=== PATIENT | male | born 1960 | race Caucasian/White ===

== ENCOUNTER → 2017-10-11 | Outpatient (CLI) | payer OTHER ==
[2017-10-11 10:23] LABS: BASOPHILS ABSOLUTE AUTO 0.05 K/mm3 (0.00-0.23); BASOPHILS PERCENT AUTO 1 % (0-2); EOSINOPHILS ABSOLUTE AUTO 0.15 K/mm3 (0.00-0.68); EOSINOPHILS PERCENT AUTO 2 % (0-6); Hematocrit 47.2 % (37.0-53.0); Hemoglobin 16.1 g/dL (13.5-17.5); IMMATURE GRAN ABSOLUTE AUTO 0.03 K/mm3 (0.00-0.10); IMMATURE GRAN PERCENT AUTO 0 % (0-1); LYMPHOCYTES ABSOLUTE AUTO 1.41 K/mm3 (0.84-5.20); LYMPHOCYTES PERCENT AUTO 18 % (21-46); MONOCYTES ABSOLUTE AUTO 0.64 K/mm3 (0.16-1.47); MONOCYTES PERCENT AUTO 8 % (4-13); Mean Corpuscular HGB 29.5 pg (26.0-34.0); Mean Corpuscular HGB Conc 34.1 g/dL (31.5-36.5); Mean Corpuscular Volume 87 fL (80-100); Mean Platelet Volume 10.6 fL (9.1-12.4); NEUTROPHILS PERCENT AUTO 70 % (41-73); Platelet Count 193 K/mm3 (150-400); RDW Coefficient Variation 14.5 % (11.7-14.2); RDW Standard Deviation 44.6 fL (35.1-46.3); Red Blood Cell Count 5.45 M/mm3 (4.30-5.90); White Blood Cell Count 7.68 K/mm3 (4.00-11.30)
[2017-10-11 10:40] LABS: Alanine Aminotransfer (ALT/SGP 31 U/L (12-78); Albumin/Globulin Ratio 1.2 (0.8-1.8); Alk Phos 70 U/L (40-126); Anion Gap 8 mmol/L (6-16); Aspartate Aminotrans (AST/SGOT 18 U/L (12-37); Bilirubin, Total 0.5 mg/dL (0.1-1.0); Blood Urea Nitrogen 23 mg/dL (8-24); Bun/Creatinine Ratio 15.3 (12.0-20.0); CO2, Blood 30 mmol/L (21-32); Calcium, Blood 9.1 mg/dL (8.5-10.1); Chloride, Blood 106 mmol/L (98-108); Globulin, Blood 3.4 g/dL (2.2-4.0); Glomerular Filtration Rate 48 (60-); Glucose, Blood 88 mg/dL (70-99); Potassium, Blood 4.3 mmol/L (3.5-5.5); Sodium, Blood 144 mmol/L (136-145); Total Protein, Blood 7.4 g/dL (6.4-8.2)
[2017-10-11 10:42] LABS: Troponin I <0.017 ng/mL (0.000-0.040)
== END | disposition home or self-care (01) ==
LOC: LAB SHORT 10:19 → LAB EV 10:19
PROVIDERS: Physician Assistant
DX: I10 Essential (primary) hypertension (principal)
CPT/HCPCS: 80053; 83690; 83880; 84484; 85025

== ENCOUNTER → 2021-10-23 | Outpatient (CLI) | payer OTHER ==
[2021-10-23 16:14] LABS: BASOPHILS ABSOLUTE AUTO 0.05 K/mm3 (0.00-0.23); BASOPHILS PERCENT AUTO 1 % (0-2); EOSINOPHILS ABSOLUTE AUTO 0.06 K/mm3 (0.00-0.68); EOSINOPHILS PERCENT AUTO 1 % (0-6); IMMATURE GRAN ABSOLUTE AUTO 0.05 K/mm3 (0.00-0.10); IMMATURE GRAN PERCENT AUTO 1 % (0-1); LYMPHOCYTES ABSOLUTE AUTO 1.15 K/mm3 (0.84-5.20); LYMPHOCYTES PERCENT AUTO 12 % (21-46); MONOCYTES ABSOLUTE AUTO 0.82 K/mm3 (0.16-1.47); MONOCYTES PERCENT AUTO 9 % (4-13); Mean Corpuscular HGB 29.6 pg (26.0-34.0); Mean Corpuscular Volume 87 fL (80-100); NEUTROPHILS ABSOLUTE AUTO 7.38 K/mm3 (1.96-9.15); NEUTROPHILS PERCENT AUTO 78 % (41-73); Platelet Count 204 K/mm3 (150-400); RDW Coefficient Variation 15.3 % (11.7-14.2); RDW Standard Deviation 47.8 fL (35.1-46.3); Red Blood Cell Count 5.74 M/mm3 (4.30-5.90); White Blood Cell Count 9.51 K/mm3 (4.00-11.30)
[2021-10-23 16:37] LABS: Albumin, Blood 3.5 g/dL (3.4-5.0); Albumin/Globulin Ratio 1.1 (0.8-1.8); Bilirubin, Total 0.7 mg/dL (0.1-1.0); Bun/Creatinine Ratio 10.8 (12.0-20.0); Calcium, Blood 8.6 mg/dL (8.5-10.1); Creatinine, Blood 1.86 mg/dL (0.60-1.20); Globulin, Blood 3.1 g/dL (2.2-4.0); Potassium, Blood 4.1 mmol/L (3.5-5.5); Thyroid Stimulating Hormone 1.074 uIU/mL (0.360-4.800); Total Protein, Blood 6.6 g/dL (6.4-8.2)
== END | disposition home or self-care (01) ==
LOC: LAB SHORT 16:09 → LAB 16:09
PROVIDERS: Physician Assistant
DX: I48.0 Paroxysmal atrial fibrillation (principal); R53.83 Other fatigue
CPT/HCPCS: 80053; 83880; 84443; 84484; 85025

== ENCOUNTER → 2023-03-01 | Outpatient (CLI) | payer OTHER ==
[~2023-03-01] MED LIST: ISOSORBIDE MONO30 MG PO; Lasix40 MG PO; Tenormin50 MG PO; VITAMIN D31000 UNI1 PO; XARELTO15 MG PO
[2023-03-01 10:17] LABS: BASOPHILS ABSOLUTE AUTO 0.04 K/mm3 (0.00-0.23); BASOPHILS PERCENT AUTO 1 % (0-2); EOSINOPHILS ABSOLUTE AUTO 0.11 K/mm3 (0.00-0.68); EOSINOPHILS PERCENT AUTO 2 % (0-6); Hematocrit 51.5 % (37.0-53.0); Hemoglobin 16.8 g/dL (13.5-17.5); IMMATURE GRAN ABSOLUTE AUTO 0.03 K/mm3 (0.00-0.10); IMMATURE GRAN PERCENT AUTO 0 % (0-1); LYMPHOCYTES ABSOLUTE AUTO 1.45 K/mm3 (0.84-5.20); LYMPHOCYTES PERCENT AUTO 20 % (21-46); MONOCYTES PERCENT AUTO 10 % (4-13); Mean Corpuscular HGB 28.2 pg (26.0-34.0); Mean Corpuscular HGB Conc 32.6 g/dL (31.5-36.5); Mean Corpuscular Volume 86 fL (80-100); Mean Platelet Volume 10.6 fL (9.1-12.4); NEUTROPHILS ABSOLUTE AUTO 4.92 K/mm3 (1.96-9.15); NEUTROPHILS PERCENT AUTO 68 % (41-73); Platelet Count 233 K/mm3 (150-400); RDW Coefficient Variation 16.1 % (11.7-14.2); Red Blood Cell Count 5.96 M/mm3 (4.30-5.90); White Blood Cell Count 7.25 K/mm3 (4.00-11.30)
[2023-03-01 11:15] LABS: Alanine Aminotransfer (ALT/SGP 27 U/L (12-78); Albumin, Blood 3.4 g/dL (3.4-5.0); Albumin/Globulin Ratio 0.9 (0.8-1.8); Alk Phos 84 U/L (50-136); Anion Gap 6 mmol/L (6-16); Aspartate Aminotrans (AST/SGOT 18 U/L (12-37); Bilirubin, Total 0.5 mg/dL (0.1-1.0); Blood Urea Nitrogen 20 mg/dL (8-24); Bun/Creatinine Ratio 9.2 (12.0-20.0); CHOL/HDL RATIO 4.1; CO2, Blood 28 mmol/L (21-32); Calcium, Blood 8.9 mg/dL (8.5-10.1); Chloride, Blood 107 mmol/L (98-108); Cholesterol 144 mg/dL (50-200); Creatinine, Blood 2.17 mg/dL (0.60-1.20); Globulin, Blood 3.6 g/dL (2.2-4.0); Glomerular Filtration Rate 33 (60-); Glucose, Blood 84 mg/dL (70-99); HDL Cholesterol 35 mg/dL (>39); LDL/HDL RATIO 1.8; Low Density Lipoprotein Chol 65 mg/dL (0-110); Potassium, Blood 3.6 mmol/L (3.5-5.5); Sodium, Blood 141 mmol/L (136-145); Triglycerides 222 mg/dL (30-160); Very Low Density Lipoprot Chol 44 mg/dL (6-32)
== END | disposition home or self-care (01) ==
LOC: LAB SHORT 08:15 → LAB 08:15
PROVIDERS: Nurse Practitioner Family
DX: Z00.00 Encounter for general adult medical examination without abnormal findings (principal)
CPT/HCPCS: 36415; 80053; 80061; 82306; 83036; 84443; 85025

== ENCOUNTER → 2024-01-26 | Outpatient (CLI) | payer OTHER ==
[2024-01-26 19:05] LABS: BASOPHILS PERCENT AUTO 1 % (0-2); EOSINOPHILS ABSOLUTE AUTO 0.09 K/mm3 (0.00-0.68); EOSINOPHILS PERCENT AUTO 1 % (0-6); Hemoglobin 16.2 g/dL (13.5-17.5); IMMATURE GRAN ABSOLUTE AUTO 0.05 K/mm3 (0.00-0.10); IMMATURE GRAN PERCENT AUTO 1 % (0-1); LYMPHOCYTES ABSOLUTE AUTO 1.36 K/mm3 (0.84-5.20); LYMPHOCYTES PERCENT AUTO 20 % (21-46); MONOCYTES ABSOLUTE AUTO 0.81 K/mm3 (0.16-1.47); MONOCYTES PERCENT AUTO 12 % (4-13); Mean Corpuscular HGB 32.8 pg (26.0-34.0); Mean Corpuscular HGB Conc 33.1 g/dL (31.5-36.5); Mean Corpuscular Volume 99 fL (80-100); Mean Platelet Volume 10.9 fL (9.1-12.4); NEUTROPHILS ABSOLUTE AUTO 4.57 K/mm3 (1.96-9.15); NEUTROPHILS PERCENT AUTO 66 % (41-73); Platelet Count 228 K/mm3 (150-400); RDW Coefficient Variation 16.3 % (11.7-14.2); RDW Standard Deviation 59.7 fL (35.1-46.3); Red Blood Cell Count 4.94 M/mm3 (4.30-5.90); White Blood Cell Count 6.98 K/mm3 (4.00-11.30)
[2024-01-26 20:34] LABS: Alanine Aminotransfer (ALT/SGP 97 U/L (12-78); Albumin, Blood 3.8 g/dL (3.4-5.0); Alk Phos 85 U/L (50-136); Anion Gap 11 mmol/L (3-11); Aspartate Aminotrans (AST/SGOT 86 U/L (12-37); Bilirubin, Direct 0.2 mg/dL (0.0-0.3); Bilirubin, Indirect 0.5 mg/dL (0.1-0.7); Bilirubin, Total 0.7 mg/dL (0.1-1.0); Blood Urea Nitrogen 22 mg/dL (8-24); Bun/Creatinine Ratio 11.1 (12.0-20.0); CO2, Blood 28 mmol/L (21-32); Chloride, Blood 107 mmol/L (98-108); Cholesterol 203 mg/dL (50-200); Creatinine, Blood 1.98 mg/dL (0.60-1.20); Free Thyroxine 0.82 ng/dL (0.70-1.60); Glomerular Filtration Rate 37 (60-); Glucose, Blood 115 mg/dL (70-99); HDL Cholesterol 41 mg/dL (>39); LDL/HDL RATIO 2.7; Low Density Lipoprotein Chol 111 mg/dL (0-110); Potassium, Blood 4.3 mmol/L (3.5-5.5); Sodium, Blood 142 mmol/L (136-145); Total Protein, Blood 7.8 g/dL (6.4-8.2); Triglycerides 254 mg/dL (30-160); Very Low Density Lipoprot Chol 50 mg/dL (6-32)
== END ==
LOC: LAB 18:19 → LAB SHORT 18:19
PROVIDERS: Nurse Practitioner Family
DX: I10 Essential (primary) hypertension (principal); R16.0 Hepatomegaly, not elsewhere classified
CPT/HCPCS: 80053; 80061; 82248; 83880; 84439; 84443; 85025

== ENCOUNTER → 2024-11-06 | Outpatient (CLI) | payer OTHER ==
[~2024-11-06] MED LIST changes: +METFORMIN HCL500 M2 PO; +METOPROLOL SUCC25 MG PO; +XARELTO15 M1
[2024-11-06 19:42] LABS: BASOPHILS ABSOLUTE AUTO 0.06 K/mm3 (0.00-0.23); BASOPHILS PERCENT AUTO 1 % (0-2); EOSINOPHILS ABSOLUTE AUTO 0.06 K/mm3 (0.00-0.68); EOSINOPHILS PERCENT AUTO 1 % (0-6); Hematocrit 45.7 % (37.0-53.0); Hemoglobin 15.5 g/dL (13.5-17.5); IMMATURE GRAN ABSOLUTE AUTO 0.04 K/mm3 (0.00-0.10); IMMATURE GRAN PERCENT AUTO 1 % (0-1); LYMPHOCYTES ABSOLUTE AUTO 1.38 K/mm3 (0.84-5.20); LYMPHOCYTES PERCENT AUTO 19 % (21-46); MONOCYTES ABSOLUTE AUTO 0.77 K/mm3 (0.16-1.47); MONOCYTES PERCENT AUTO 10 % (4-13); Mean Corpuscular HGB Conc 33.9 g/dL (31.5-36.5); Mean Corpuscular Volume 100 fL (80-100); Mean Platelet Volume 10.3 fL (9.1-12.4); NEUTROPHILS ABSOLUTE AUTO 5.14 K/mm3 (1.96-9.15); NEUTROPHILS PERCENT AUTO 69 % (41-73); Platelet Count 272 K/mm3 (150-400); RDW Standard Deviation 69.7 fL (35.1-46.3); Red Blood Cell Count 4.56 M/mm3 (4.30-5.90); White Blood Cell Count 7.45 K/mm3 (4.00-11.30)
[2024-11-06 20:57] LABS: Albumin, Blood 3.3 g/dL (3.4-5.0); Albumin/Globulin Ratio 0.9 (0.8-1.8); Bilirubin, Total 1.8 mg/dL (0.1-1.0); Bun/Creatinine Ratio 7.4 (12.0-20.0); Calcium, Blood 8.4 mg/dL (8.5-10.1); Creatinine, Blood 1.89 mg/dL (0.60-1.20); Globulin, Blood 3.7 g/dL (2.2-4.0); Potassium, Blood 3.1 mmol/L (3.5-5.5)
== END | disposition home or self-care (01) ==
LOC: LAB 19:04 → LAB SHORT 19:04
PROVIDERS: Nurse Practitioner Family
DX: I10 Essential (primary) hypertension (principal)
CPT/HCPCS: 80053; 85025

== ENCOUNTER 2024-11-12 09:52 | Inpatient (IN) | payer OTHER ==
[~2024-11-12] VITALS: Ht 190.5 cm; Wt 125.1 kg
[2024-11-12] VITALS (10 sets, daily range): BP systolic 90–145; BP diastolic 67–108
[~2024-11-12 09:52] MED LIST changes: -METFORMIN HCL500 M2 PO; -METOPROLOL SUCC25 MG PO; -XARELTO15 M1
[2024-11-12 10:49] LABS: Source, Urine Voided
[2024-11-12] MEDS ORDERED: Metoprolol Tartrate 1 MG/ML 5 ML VIAL IV PRN ×2 (10:55→20:00)
[2024-11-12] MEDS ORDERED: NS 1,000 ML IV SCH ×3 (10:55→15:00)
[2024-11-12 10:56] LABS: BASOPHILS ABSOLUTE AUTO 0.05 K/mm3 (0.00-0.23); BASOPHILS PERCENT AUTO 1 % (0-2); EOSINOPHILS ABSOLUTE AUTO 0.04 K/mm3 (0.00-0.68); EOSINOPHILS PERCENT AUTO 1 % (0-6); Hemoglobin 14.9 g/dL (13.5-17.5); IMMATURE GRAN ABSOLUTE AUTO 0.03 K/mm3 (0.00-0.10); IMMATURE GRAN PERCENT AUTO 0 % (0-1); LYMPHOCYTES ABSOLUTE AUTO 1.03 K/mm3 (0.84-5.20); LYMPHOCYTES PERCENT AUTO 14 % (21-46); MONOCYTES PERCENT AUTO 11 % (4-13); Mean Corpuscular HGB 34.4 pg (26.0-34.0); Mean Corpuscular HGB Conc 35.5 g/dL (31.5-36.5); Mean Corpuscular Volume 97 fL (80-100); Mean Platelet Volume 9.8 fL (9.1-12.4); NEUTROPHILS ABSOLUTE AUTO 5.66 K/mm3 (1.96-9.15); NEUTROPHILS PERCENT AUTO 74 % (41-73); Platelet Count 180 K/mm3 (150-400); RDW Coefficient Variation 18.6 % (11.7-14.2); RDW Standard Deviation 66.8 fL (35.1-46.3); Red Blood Cell Count 4.33 M/mm3 (4.30-5.90); White Blood Cell Count 7.61 K/mm3 (4.00-11.30)
[2024-11-12] MEDS ORDERED: Diazepam 5 MG / ML 2ML SYR IV ONE (11:00)
[2024-11-12] MEDS ORDERED: Thiamine HCl 100 MG Tab PO ONE (11:00)
[2024-11-12 11:20] LABS: Appearance, Urine Clear (Clear); Bilirubin, Urine Neg (Neg); Blood, Urine 1+ (Neg); Color, Urine Amber (P-Yellow); Glucose Qualitative, Urine Neg (Neg); Ketones, Urine Neg (Neg); Leukocyte Esterase, Urine 1+ (Neg); Nitrite, Urine Neg (Neg); Protein, Urine 2+ (Neg); Urobilinogen, Urine 1+ (Normal)
[2024-11-12 11:26] LABS: Ethanol (Alcohol), Blood, Med 123 mg/dL; Salicylate <1.7 mg/dL (2.8-20.0)
[2024-11-12 11:39] LABS: Bacteria Few /hpf; Red Blood Cells, Urine 0-2 /hpf (0-2); Squamous Epithelial Cells Few /hpf (Few); Transitional Epithelial Cells Few /hpf (0-Rare)
[2024-11-12 11:46] LABS: Alanine Aminotransfer (ALT/SGP 36 U/L (12-78); Albumin, Blood 2.8 g/dL (3.4-5.0); Albumin/Globulin Ratio 0.8 (0.8-1.8); Alk Phos 110 U/L (50-136); Anion Gap 14 mmol/L (3-11); Aspartate Aminotrans (AST/SGOT 55 U/L (12-37); Bilirubin, Total 1.3 mg/dL (0.1-1.0); Blood Urea Nitrogen 11 mg/dL (8-24); CO2, Blood 27 mmol/L (21-32); Chloride, Blood 89 mmol/L (98-108); Creatinine, Blood 1.83 mg/dL (0.60-1.20); Globulin, Blood 3.6 g/dL (2.2-4.0); Glomerular Filtration Rate 40 (60-); Glucose, Blood 113 mg/dL (70-99); Potassium, Blood 2.2 mmol/L (3.5-5.5); Sodium, Blood 128 mmol/L (136-145); Total Protein, Blood 6.4 g/dL (6.4-8.2)
[2024-11-12 11:47] LABS: Acetaminophen, Random <2.0 ug/mL (10.0-30.0)
[2024-11-12] MEDS ORDERED: Potassium Chloride 20 MEQ TabCR PO ONE (11:55)
[2024-11-12] MEDS ORDERED: Potassium Acetate 20 MEQ in NS 100 ML IV SCH (11:55)
[2024-11-12] MEDS ORDERED: Potassium Chloride 40 MEQ in NS 250 ML IV ONE (12:05)
[2024-11-12] MEDS ORDERED: Digoxin 0.25 MG/ML 2ML Amp IV ONE (12:55)
[2024-11-12 13:14] LABS: Bun/Creatinine Ratio 6.7 (12.0-20.0); Calcium, Blood 7.5 mg/dL (8.5-10.1); Creatinine, Blood 1.79 mg/dL (0.60-1.20); Potassium, Blood 2.2 mmol/L (3.5-5.5)
[2024-11-12] MEDS ORDERED: NS 1,000 ML IV ONE (13:27)
[2024-11-12] MEDS ORDERED: LORazepam 2 MG/ML 1ML Injection IV PRN ×2 (14:20→23:15)
[2024-11-12] MEDS ORDERED: ChlordiazePOXIDE 25 MG Cap PO PRN ×2 (14:20→23:15)
[2024-11-12] MEDS ORDERED: Thiamine HCl 500 MG in NS 100 ML IV SCH (14:22)
[2024-11-12] MEDS ORDERED: Folic Acid 1 MG in NS 50 ML IV SCH (14:25)
--- NOTE | 2024-11-12 15:37 | NUR ---
NEW ADMIT. PATIENT ADMITTED TO PCU09 FROM THE ER. PATIENT ARRIVED TO WITH NS AND POTASSIUM IN ROUTE. PATIENT ADMITTED FOR ETOH WITHDRAWL. PATIENT IS TACHYCARDIC UPON ARRIVAL-TREATED WITH LOPRESSOR WITH MINIMAL IMPROVEMENT PER REPORT. PATIENT TRANSFERED FROM [facility] TO [facility] BED WITH SLIDER SHEET AND 4P ASSIST. PATIENTS PANTS SOILED UPON ARRIVAL-PATIENT REPORTED THAT HE HAD GONE WHEN TRYING TO PEE. THIS RN TO ASSUME PATIENT CARE.
[2024-11-12] MEDS ORDERED: Metoprolol Tartrate 1 MG/ML 5 ML VIAL IV ONE (16:00)
[2024-11-12] MEDS ORDERED: Metoprolol Tartrate 25 MG Tab PO SCH ×2 (16:00→18:14)
[2024-11-12] MEDS ORDERED: XARELTO15 M1 (16:25)
[2024-11-12] MEDS ORDERED: METFORMIN HCL500 M2 PO (16:26)
[2024-11-12] MEDS ORDERED: METOPROLOL SUCC25 MG PO (16:26)
--- NOTE | 2024-11-12 18:41 | NUR ---
SHIFT SUMMARY. PATIENT IS ALERT AND ORIENTED-ABLE TO ANSWER ALL ORIENTATION QUESTIONS APPROPRIATELY ALTHOUGH DOES EXPERIENCE CLOUDING AT TIMES. PATIENT ASSESSMENT COMPLETED, PATIENT TELEMETRY INITIATED UPON ARRIVAL TO ROOM-PATIENT IS IN AFIB WITH HEART RATE RANGING FROM 140'S-160'S-PATIENT RECEIVED A DOSE OF IV LOPRESSOR AND ORAL LOPRESSOR WITH NO IMPROVEMENT TO HEART RATE; CONTACTED AND NOTIFIED, ORDERED FOR AN ADDITIONAL DOSE OF METOPROLOL 25MG ORAL WITH INSTRUCTIONS TO NOTIFY IF NO IMPROVEMENT-SEE NURSE NOTIFY. PATIENT IS IN WITH ETOH WITHDRAWL AND CAN BE OF IRRITAL AFFECT. PATIENT WILL ASK FOR "MEDICATIONS TO STOP THE SWEATING". PATIENT EXPERIENCES TROUBLE GETTING PILLS DOWN, PATIENT IS ABLE TO SWALLOW SMALL PILLS OKAY WITH WATER. PATIENT IS ON A CLEAR LIQUID DIET. CIWAS ARE ORDERED. PATIENTS LAST CIWA SCORE FOR THIS RN WAS 9-25MG OF LIBRIUM GIVEN WITH IMPROVEMENT TO SYMPTOMS OF WITHDRAWL. PATIENT DRINKS 2 FIFTHS OF WHISKEY A DAY AND HE REPORTED LAST DRINK WAS TODAY 11/12/24 PRIOR TO CALLING EMS. PATIETNS IS IN AT BEDSIDE. PATIENT IS TIRED AND REPORTS NOT SLEEPING IN THE LAST 2 DAYS AND NOT EATING. PATIENT IS RESTING AT THIS TIME. BED IS LOCKED IN THE LOWEST POSITION WITH CALL LIGHT IN REACH, BED EXIT ALARM ENGAGED FOR PATIENT SAFETY. CARE IS ONGOING.
[2024-11-12 21:17] LABS: U Amphetamine Screen Not Detected; U Barbituate Screen Not Detected; U Benzodiazapine Screen Not Detected; U Buprenorphine Screen Not Detected; U Cannabinoids Screen Not Detected; U Cocaine Screen Not Detected; U Methadone Screen Not Detected; U Methamphetamine Screen Not Detected; U Opiates Screen Not Detected; U Oxycodone Screen Not Detected; U Phencyclidine Screen Not Detected
[2024-11-12] MEDS ORDERED: dexmedeTOMIDine 100 ML IV SCH (23:20)
--- NOTE | 2024-11-12 23:29 | NUR ---
SPOKE WITH DR. AGUDELO REGARDING INCREASE IN CIWA SCORES AND ATIVAN Q2 MAXED OUT. NOT FULL PROTOCOL ORDERED. ALSO DISCUSSED HR IN 150S ON AMIO GTT AND BP QUESTIONABLE TREND DOWN TO 100S SYTOLIC. PER JAMMIE GIVE METOPROLOL IV 5MG. THIS RN DID NOT FEEL COMFORTABLE WITH CURRENT BPS AND WORSENING CIWA SCORES, INCREASED SOA AND ONLY ATIVAN/LIBRIUM AVAILABLE. PER DR AGUDELO TRANSFER TO ICU FOR PRECEDEX GTT AND HIGHER LEVEL OF CARE
[2024-11-13] VITALS (60 sets, daily range): BP systolic 62–161; BP diastolic 35–143
[2024-11-13 05:39] LABS: Bun/Creatinine Ratio 6.1 (12.0-20.0); Calcium, Blood 7.9 mg/dL (8.5-10.1); Creatinine, Blood 2.47 mg/dL (0.60-1.20); Potassium, Blood 2.9 mmol/L (3.5-5.5)
[2024-11-13] MEDS ORDERED: Potassium Chl 20MEQ/Water100ML 100 ML IV SCH (06:00)
--- NOTE | 2024-11-13 06:46 | NUR ---
SHIFT SUMMARY: PT WAS TRANSFER FROM PCU. PT ARRIVED TO ICU ON BED, TRANSPORTED BY 2 RNS. TOA 2356. PT WAS ALERT TO SELF ONLY. PT WAS RE-DIRECTABLE AT FIRST, FOLLOWING COMMANDS, SLIGHTLY YELLING OUT BUT COOPERATIVE. PT CONTINUED TO STATE "HE HAD THINGS TO DO," AND TRIED GETTING OUT OF BED. RNS CONTINUED TO REASSURE HIM AND ATTEMPT TO RE-ORIENT HIM TO WHERE HE WAS. PT BECAME INCREASINGLY ANXIOUS AND STARTED PULLING AT LINES, ATTEMPTING TO GET OUT OF BED. PRECEDEX DRIP STARTED AND ATIVAN GIVEN PER EMAR ORDERS. PT PLACED IN RESTRAINTS PER ORDERS. PT AFEBRILE. HR 150S. IRREG. PT HAS HX OF AFIB. AMIODORONE DRIP RUNNING, STARTED IN PCU. SBP 130S. LUNGS COARSE IN UPPER LOBES, DIMINISHED AT BASES. PT SATS >90% OMN 2L NC. RESPIRATIONS 20S-30S. PT DENIES PAIN OVERALL OR CHEST PRESSURE/SOB. ABD DISTENDED AND FIRM. BOWEL TONES HYPERACTIVE. NO URINARY ISSUES REPORTED TO THIS RN. NO SKIN ISSUES NOTED. PT HAS RAC PERIPHERAL IV AND RFA POWERGLIDE. INFUSING PRECEDEX 0.2MCG/KR/HR AND NS AT 125ML/HR.
[2024-11-13] MEDS ORDERED: Albumin (Human) 25gm/100ml 100 ML IV SCH (07:55)
[2024-11-13] MEDS ORDERED: Enoxaparin 40 MG/0.4 ML SYR SC SCH (09:00)
[2024-11-13] MEDS ORDERED: Folic Acid 1 MG in NS 50 ML IV SCH (09:00)
--- NOTE | 2024-11-13 09:00 | NUR ---
ASSUMPTION OF CARE: ASSUMED CARE AT START OF SHIFT (0700). PT IS LAYING IN BED AND SEDATED VIA PRECEDEX DRIP. PT IS UNRESPONSIVE TO VERBAL AND PAINFUL STIMULI AT THIS TIME. PATIENT IS HERE FOR ALCOHOL WITHDRAWLS AND CIWA SCORE: 17. THEIR SYSTOLIC BP RANGING FROM 80 - 130'S AND MAP >65 HR: 90 - 100'S. THEIR ARE ON 2LPM VIA NC AND SPO2 >94%, LUNG SOUNDS ARE CLEAR AND SHALLOW BILATERALLY. RADIAL AND PEDAL PULSES ARE FAINT, HEARD WITH DOPPLER. POWERGLIDE IN R FOREARM AND PERIPHERAL IV IN R ARM. MOTTLING ON BILATERAL KNEES. LINES AND CORDS PLACED OUT OF REACH, AND CALL LIGHT PLACED WITHIN REACH.
--- NOTE | 2024-11-13 11:51 | NUR ---
PALLIATIVE CARE NOTE: RECEIVED MESSAGE ON PC PHONE FROM ASHA FAY RN FROM [facility], PT HAS EXPRESSED HE WANTS TO GO INTO REHAB FOR ALCOHOL ADDICTION. PLACED PC CONSULT TO ADDRESS.
[2024-11-13 12:44] LABS: International Normalized Ratio 1.29; Prothrombin Time Results 13.5 Sec (9.7-11.5)
[2024-11-13 13:50] LABS: Anti-Xa UFH, PHA Monitoring 0.18 IU/mL
[2024-11-13] MEDS ORDERED: Heparin Sodium,Porcine/0.5 NS 500 ML IV SCH (13:55)
--- NOTE | 2024-11-13 18:27 | NUR ---
SHIFT SUMMARY: PT IS AWAKE AND LAYING IN BED. THEY ARE SEDATED WITH PRECEDX AND RECIEIVING PRN ATIVAN TO HELP WITH WITHDRAWLS PER EMR ORDERS. WHEN SEDATION WEARS OFF THE PATIENT WILL SCREAM OUT AND TRY TO GET OUT OF BED, STATES THAT THEY WANT TO LEAVE AND WILL START TO GRAB AT THEIR LINES. PT LIKES LAYING ON THEIR SIDE, FAVORING THE LEFT SIDE. THEY O2 VIA NC @ 4LPM, SPO2 >94%, PT IS A MOUTH BREATHER AND WILL CONTINUE TO TRY AN TAKE OFF THE NC. HR: 110'S AND BP: 120 -140'S WITH MAP>65. POWERGLIDE IN THE R FOREARM, AND PERIPHERAL IV IN THE R ARM. PT RECIEVED A CHG BED BATH TODAY. STRAIGHT CATH'D WITH 90ML OUTPUT. LINES AND CORDS PLACED OUT OF REACH. CALL LIGHT PLACED WITHIN REACH.
--- NOTE | 2024-11-13 19:56 | NUR ---
PT UPDATE: CALL MADE TO LOREN MONIQUE REGARDING UNABLE TO OBTAIN OXYGEN READING. ORDERS PLACED FROM ABG. CRISTOBAL GILLIS NOTIFIED.
[2024-11-13 20:13] LABS: Bun/Creatinine Ratio 6.3 (12.0-20.0); Calcium, Blood 6.8 mg/dL (8.5-10.1); Creatinine, Blood 2.71 mg/dL (0.60-1.20); Potassium, Blood 3.1 mmol/L (3.5-5.5)
[2024-11-13 20:16] LABS: PCO2 Arterial 21.9 mmHg (35-45); PO2 Arterial 130 mmHg (80-100); pH Blood Arterial 7.39 (7.35-7.45)
[2024-11-13 21:16] LABS: Base Excess Venous -6.7 mmol/L; Bicarbonate Venous 17.8 mmol/L (24.0-30.0); PCO2 Venous 41.7 mmHg (38-42); pH Blood Venous 7.29 (7.34-7.37)
--- NOTE | 2024-11-13 21:25 | NUR ---
PT UPDATE: CALL PLACED TO LOREN MONIQUE REGARDING PLACING AMIO GTT ON SB WHILE GETTING MAPS UP AND LEVO STARTED. UPDATED HIM ON RECENT CHEMISTRY, NEW ORDERS RECIEVED.
[2024-11-13] MEDS ORDERED: Dose Adjust by Pharmacy XX STA (21:53)
[2024-11-13 22:04] LABS: Beta-hydroxybutyrate 1.3 mg/dL (0.2-2.8)
--- NOTE | 2024-11-13 22:30 | NUR ---
ASSUMPTION OF CARE/ASSESSMENT: ASSUMED CARE OF PT AT 1900; BEDSIDE SHIFT REPORT RECIEVED FROM ZAINA ZAMARRIPA. PT IN BED, RAAS -3 TO -4, AND PRECEDEX GTT @ 0.6 MCG AT SHIFT CHANGE. PRECEDEX GTT TITRATED OFF BY 2030 DUE TO UNRESPONSIVENESS AND ACUTE HYPOTENSION. LOREN CARE TECHNICIAN NOTIFIED OF PERSISTANT HYPOTENSION AND ORDERS FOR LEVOPHED RECIEVED. PT STARTED ON LEVO AND QUICKLY TITRATED UP TO 10 MCG TO MAINTAIN MAP 65<. PT CONTINUES TO BE UNRESPONSIVE. UNABLE TO OBTAIN SPO2 READING AT START OF SHIFT. LOREN CARE TECHNICIAN NOTIFIED AND ABG ORDERED; RESULTS SHOWED ADEQUATE OXYGENATION. PT MENTATION UNCHANGING, VBG TAKEN AN HOUR LATER AND SHOWED WORSENING CO2. LACTIC ACID TANKEN AT THIS TIME AND CAME BACK AT 7.0. DR KEATING BY TO ASSESS PT AND VERBAL ORDERS FOR HEAD/CHEST/ABD/PELVIS CT WO CONTRAST. PT TAKEN TO IMAGING AND STARTED TO BECOME RESPONSIVE TO STIMULI. PT HAS INCOHERENT SPEECH. AFTER IMAGING, RISHABH AT BEDSIDE ASSESSING; PT ABLE TO STATE NAME/, LOCATION, AND YEAR. PT ABLE TO MOVE ALL EXTREMITIES, FACE SYMMETRICAL, PERLLA BIALTERALLY. PT COOPERATIVE AT THIS TIME. PT REMAINS ON NC @ 4 LPM; LUNGS CLEAR WITH SOME RHONCHI ON R. SIDE AND LEFT SIDE IS DIMINISHED THROUGHOUT. PT NPO AT THIS TIME DUE TO ASPIRATION RISK. PT ABD SEVERLY DISTENDED FIRM AND WITHOUT TENDERNESS. PT OLIGURIC, HAVING A HARD TIME VOIDING AND REPORTS A BURNING SENSATION WHEN ATTEMPTING TO VOID; BLADDER SCAN COMPLETE AND SHOWING 41 MLS. PT MOTTLED FROM TOES TO ABD AND FINGER TIPS MOTTLED. PG TO RFA PATENT AND PIV TO RAC PATENT AND BOTH ARE INFUSING. WILL CONTINUE TO MONITOR.
[2024-11-13] MEDS ORDERED: NS 1,000 ML IV SCH (22:35)
[2024-11-13 22:38] LABS: Magnesium, Blood 1.5 mg/dL (1.6-2.4)
[2024-11-13] MEDS ORDERED: Magnesium Sulf 2 GM/Water 50ML 50 ML IV ONE (22:45)
[2024-11-13] MEDS ORDERED: Potassium Chloride 40 MEQ in NS 250 ML IV ONE (22:45)
[2024-11-13 22:57] LABS: Base Excess Venous -8.5 mmol/L; Bicarbonate Venous 16.8 mmol/L (24.0-30.0); PCO2 Venous 44.5 mmHg (38-42); pH Blood Venous 7.24 (7.34-7.37)
[2024-11-13] MEDS ORDERED: NS 1,000 ML IV ONE (23:00)
[2024-11-13 23:04] LABS: BASOPHILS ABSOLUTE AUTO 0.09 K/mm3 (0.00-0.23); BASOPHILS PERCENT AUTO 1 % (0-2); EOSINOPHILS ABSOLUTE AUTO 0.03 K/mm3 (0.00-0.68); EOSINOPHILS PERCENT AUTO 0 % (0-6); Hematocrit 45.7 % (37.0-53.0); IMMATURE GRAN ABSOLUTE AUTO 0.26 K/mm3 (0.00-0.10); IMMATURE GRAN PERCENT AUTO 2 % (0-1); LYMPHOCYTES ABSOLUTE AUTO 1.82 K/mm3 (0.84-5.20); LYMPHOCYTES PERCENT AUTO 12 % (21-46); MONOCYTES ABSOLUTE AUTO 1.31 K/mm3 (0.16-1.47); MONOCYTES PERCENT AUTO 8 % (4-13); Mean Corpuscular HGB 33.7 pg (26.0-34.0); Mean Corpuscular HGB Conc 32.8 g/dL (31.5-36.5); Mean Platelet Volume 9.6 fL (9.1-12.4); NEUTROPHILS ABSOLUTE AUTO 12.36 K/mm3 (1.96-9.15); NEUTROPHILS PERCENT AUTO 78 % (41-73); NRBC ABSOLUTE 0.05 K/mm3 (0.00-0.02); NRBC Auto 0.3 /100 WBC (0.0-0.2); Platelet Count 195 K/mm3 (150-400); RDW Coefficient Variation 19.9 % (11.7-14.2); RDW Standard Deviation 75.7 fL (35.1-46.3); Red Blood Cell Count 4.45 M/mm3 (4.30-5.90); White Blood Cell Count 15.87 K/mm3 (4.00-11.30)
[2024-11-13 23:05] LABS: Mean Corpuscular Volume 103 fL (80-100)
[2024-11-13] MEDS ORDERED: CALCIUM GLUC IN NACL, ISO-OSM 100 ML IV ONE (23:30)
[2024-11-14] VITALS (73 sets, daily range): BP systolic 66–166; BP diastolic 34–145
[2024-11-14] MEDS ORDERED: Insulin Human Lispro 100 Units/ML 3ML Syringe SC SCH
[2024-11-14 00:06] LABS: Albumin, Blood 3.1 g/dL (3.4-5.0); Albumin/Globulin Ratio 1.1 (0.8-1.8); Bilirubin, Direct 3.5 mg/dL (0.0-0.3); Bilirubin, Indirect 2.5 mg/dL (0.1-0.7); Free Thyroxine 1.15 ng/dL (0.70-1.60); Globulin, Blood 2.9 g/dL (2.2-4.0); Thyroid Stimulating Hormone 3.49 uIU/mL (0.360-4.800)
[2024-11-14] MEDS ORDERED: Cefepime HCl 1,000 MG in NS 100 ML IV SCH (01:00)
[2024-11-14] MEDS ORDERED: Vancomycin HCL 2,000 MG in NS 500 ML IV ONE (01:00)
--- NOTE | 2024-11-14 03:59 | NUR ---
PT UPDATE: MENTATION IS IMPROVING; PT REMAINS A&O X 4 AND COOPERATIVE WITH STAFF. LEVO ABLE TO BE TITRATED OFF, BP STABLE AT THIS TIME. PT REMAINS RESTLESS IN BED, CIWA 8; PT MEDICATED WITH 1 MG OF ATIVAN WITH GOOD EFFECT. ELECTROLYTES REPLACED. NS @ 150 MLS/HR. PT ABLE TO HELP REPOSITION SELF IN BED. BEDSIDE SWALLOW EVAL COMPLETED, PT ABLE TO TOLERATE SMALL SIPS OF WATER. WILL CONTINUE TO MONITOR.
[2024-11-14 04:21] LABS: Base Excess Venous -5.7 mmol/L; Bicarbonate Venous 18.5 mmol/L (24.0-30.0); PCO2 Venous 53.2 mmHg (38-42); pH Blood Venous 7.22 (7.34-7.37)
[2024-11-14 04:29] LABS: Hematocrit 41.6 % (37.0-53.0); Hemoglobin 13.7 g/dL (13.5-17.5); Mean Corpuscular HGB 33.9 pg (26.0-34.0); Mean Corpuscular HGB Conc 32.9 g/dL (31.5-36.5); Mean Corpuscular Volume 103 fL (80-100); NRBC ABSOLUTE 0.02 K/mm3 (0.00-0.02); NRBC Auto 0.1 /100 WBC (0.0-0.2); Platelet Count 140 K/mm3 (150-400); RDW Coefficient Variation 19.6 % (11.7-14.2); RDW Standard Deviation 74.4 fL (35.1-46.3); Red Blood Cell Count 4.04 M/mm3 (4.30-5.90); White Blood Cell Count 14.47 K/mm3 (4.00-11.30)
[2024-11-14 04:46] LABS: Albumin, Blood 2.8 g/dL (3.4-5.0); Albumin/Globulin Ratio 1.1 (0.8-1.8); Bilirubin, Total 5.1 mg/dL (0.1-1.0); Bun/Creatinine Ratio 6.8 (12.0-20.0); Calcium, Blood 7.6 mg/dL (8.5-10.1); Creatinine, Blood 3.4 mg/dL (0.60-1.20); Globulin, Blood 2.5 g/dL (2.2-4.0); Magnesium, Blood 1.8 mg/dL (1.6-2.4); Potassium, Blood 4.6 mmol/L (3.5-5.5); Total Protein, Blood 5.3 g/dL (6.4-8.2)
--- NOTE | 2024-11-14 06:01 | NUR ---
SHIFT SUMMARY: PT MENTATION IS STARTING TO DETERIOATE SINCE PREVIOUS NOTE. PT A&O X 1; PT STATES HE IS AT HOME, THAT THE MONTH IS APRIL AND THE YEAR IS 1987. PT CONTINUES TO FOLLOW DIRECTIOSN BUT IS GETTING INCREASINGLY AGGITATED WITH STAFF. PT YELLING OUT FREQUENTLY AND BEGAN THROWING URINAL AROUND THE ROOM. PT REMAINS ON NC @ 4LPM, CLEAR AND DIMINISHED, MORE SO ON THE LEFT SIDE. PT HAS UPPER AIRWAY WHEEZES NOTED. PT DENIES SOB AND CHEST PAIN. PT REMAINS AFIB ON MONITOR WITH RATE 130-150'S; DISCUSSED IN LENGTH WITH DR. KEATING REGARDIN RESTARTING AMIO BOLUS AND DRIP AND THE CONCLUSION WAS TO HOLD OFF FOR NOW DUE TO WORSENING LFT'S AND KIDNEY FUNCTION. BLADDER SCANNED THIS MORNING WITH 48 MLS. PT REPORTS PAIN IN ABD THIS MORNING. DR BETH AT BEDSIDE TO ASSESS PT; ORDERS RECIEVED. NS DECREASED TO 100 MLS/HR PER KIRIT. BED LOWERED, CALL LIGHT IN REACH, WILL REPORT OFF TO ONCOMING RN.
--- NOTE | 2024-11-14 06:22 | NUR ---
PT UPDATE: CRITICAL CBG OF 44. DR. KEATING NOTIFIED AND ORDERS FOR AN AMP OF D50 TO BE GIVEN NOW.
[2024-11-14] MEDS ORDERED: Dextrose 50% 50 ML Vial IV ONE (06:25)
[2024-11-14 07:52] LABS: Base Excess Venous -4.7 mmol/L; Bicarbonate Venous 19.6 mmol/L (24.0-30.0); PCO2 Venous 45.1 mmHg (38-42); pH Blood Venous 7.29 (7.34-7.37)
[2024-11-14] MEDS ORDERED: Albumin Human 50 ML IV SCH (08:30)
[2024-11-14] MEDS ORDERED: Octreotide Acetate 50 MCG in NS 50 ML IV SCH (09:00)
[2024-11-14] MEDS ORDERED: Metoprolol Tartrate 25 MG Tab PO SCH (09:00)
[2024-11-14] MEDS ORDERED: Midodrine 5 MG Tab PO SCH (09:00)
[2024-11-14] MEDS ORDERED: Dose Adjust by Pharmacy XX STA (11:57)
[2024-11-14 12:36] LABS: Anion Gap 16 mmol/L (3-11); Blood Urea Nitrogen 24 mg/dL (8-24); CO2, Blood 20 mmol/L (21-32); Calcium, Blood 7.3 mg/dL (8.5-10.1); Chloride, Blood 103 mmol/L (98-108); Creatinine, Blood 3.43 mg/dL (0.60-1.20); Glomerular Filtration Rate 19 (60-); Glucose, Blood 86 mg/dL (70-99); Potassium, Blood 3.7 mmol/L (3.5-5.5); Sodium, Blood 135 mmol/L (136-145); Vancomycin, Random 21.2 ug/mL
[2024-11-14 13:19] LABS: Base Excess Venous -6.5 mmol/L; Bicarbonate Venous 18.1 mmol/L (24.0-30.0); PCO2 Venous 47.6 mmHg (38-42); pH Blood Venous 7.25 (7.34-7.37)
[2024-11-14] MEDS ORDERED: Sodium Bicarb 8.4% Inj 150 MEQ in Dextrose 5% 1,000 ML IV SCH (14:05)
[2024-11-14] MEDS ORDERED: Vancomycin HCL 1,000 MG in NS 250 ML IV ONE (16:00)
--- NOTE | 2024-11-14 16:31 | NUR ---
SHIFT SUMMARY PT SEDATED WITH PRECEDEX AT THIS TIME. PT WITH EPISODES OF AGITATION AND RESTLESSNESS WITH LABILE MENTATION. PT RESTING QUIETLY MOST OF THIS AFTERNOON. WHEN AWAKE, PT IS CONFUSED AND DOES NOT RESPOND TO REDIRECTION. PT ABLE TO TAKE SMALL SIPS OF WATER WHEN MORE ALERT, OTHERWISE NPO DUE TO MENTATION. VITAL SIGNS HAVE REMAINED STABLE. PT ON 4L O2 NC WHILE RESTING. PG X2 IN PLACE WITH PRECEDEX, HEPARIN, BICARB, AND NS INFUSING. PT WITH SMALL INCONTINENT VOID THIS SHIFT. PT ABLE TO SHIFT SELF IN BED INDEPENDENTLY. PT SPOUSE AT BEDSIDE MOST OF THIS SHIFT. PT TRANSFERED TO ICU 5 THIS AFTERNOON. ALL PT BELONGINGS AND MEDS MOVED WITH PT. WILL CONTINUE TO MONITOR AND REPORT OFF TO ONCOMING RN.
[2024-11-14] MEDS ORDERED: Clarify Drug Order XX ONE (19:20)
[2024-11-15] VITALS (66 sets, daily range): BP systolic 93–167; BP diastolic 59–149
[2024-11-15] MEDS ORDERED: Clarify Drug Order XX ONE (02:20)
[2024-11-15 04:13] LABS: Hematocrit 38.7 % (37.0-53.0); Hemoglobin 12.5 g/dL (13.5-17.5); Mean Platelet Volume 9.7 fL (9.1-12.4); Platelet Count 136 K/mm3 (150-400)
[2024-11-15 04:56] LABS: Anion Gap 13 mmol/L (3-11); Blood Urea Nitrogen 31 mg/dL (8-24); Bun/Creatinine Ratio 8.2 (12.0-20.0); CO2, Blood 23 mmol/L (21-32); Calcium, Blood 7.5 mg/dL (8.5-10.1); Chloride, Blood 103 mmol/L (98-108); Creatinine, Blood 3.79 mg/dL (0.60-1.20); Glomerular Filtration Rate 17 (60-); Glucose, Blood 103 mg/dL (70-99); Magnesium, Blood 1.7 mg/dL (1.6-2.4); Phosphorus, Blood 3.8 mg/dL (2.5-4.9); Potassium, Blood 3.5 mmol/L (3.5-5.5); Sodium, Blood 135 mmol/L (136-145); Vancomycin, Random 25.3 ug/mL
[2024-11-15 05:27] LABS: Base Excess Venous -2.9 mmol/L; Bicarbonate Venous 20.6 mmol/L (24.0-30.0); PCO2 Venous 50.7 mmHg (38-42)
[2024-11-15 05:28] LABS: pH Blood Venous 7.28 (7.34-7.37)
--- NOTE | 2024-11-15 06:32 | NUR ---
SHIFT SUMMARY ASSUMED CARE OF PT AT 1900, RASS -2/+2 ON PRECEDEX GTT WITH FLUCTUATING LEVELS OF AWAKE, WHEN AWAKE, PT YELLING OUT, PULLING ON TELE LEADS AND RESTLESS, DOES NOT FOLLOW COMMANDS, AFIB RHYTHM 80-110s, BP MAP>65, AFEBRILE, CIWA 13, ABDIRIZAK AND RIGHT FOREARM POWERGLIDE PATENT, PLACED PUREWICK BEGINNING OF SHIFT WITH BLADDER SCAN NOTED 87 ML IN BLADDER, REPEATED BLADDER SCAN AT 0500 WITH NO NOTED OUTPUT IN PUREWICK, [address] BETH WITH [facility] AND NOTIFIED OF PT NOT VOIDED THIS SHIFT AND OF BLADDER SCAN RESULTS WITH NEW ORDERS RECEIVED TO PLACE LEA CATH AND STAT VBG, 05 14 FR 10 ML BULB LEA CATH PLACED WITH 300 ML NAMAN URINE RETURNED , LEA PLACED WITH STERILE TECHNIQUE, PT TOLERATED WELL, [address] BETH WITH VBG RESULTS WITH NEW ORDERS RECEIVED FOR CHEM 8 AT NOON AND CALL RESULTS TO HIM AT 1300. [address] BETH AT BEDSIDE , NOTIFIED OF URINE OUTPUT, NEW ORDERS RECEIVED FOR AMMONIA LEVEL AND CALL TO ATTENDING MD IF NEEDED AND INCREASED IVF NS TO 75 ML/HR , HEPARIN GTT INFUSING PER EMAR, BICARB INFUSING AT 50 ML/HR
[2024-11-15] MEDS ORDERED: Dose Adjust by Pharmacy XX STA ×2 (08:44→21:30)
[2024-11-15 13:17] LABS: Bun/Creatinine Ratio 9.5 (12.0-20.0); Calcium, Blood 7.7 mg/dL (8.5-10.1); Creatinine, Blood 3.46 mg/dL (0.60-1.20); Potassium, Blood 3.5 mmol/L (3.5-5.5)
[2024-11-15] MEDS ORDERED: Albumin Human 50 ML IV ONE (13:30)
[2024-11-15] MEDS ORDERED: Bumetanide 0.25 MG/ML 10ML Vial IV ONE (13:30)
--- NOTE | 2024-11-15 18:26 | NUR ---
SHIFT SUMMARY PT CALM MOST OF SHIFT, OCCASIONAL CONFUSION AND OUTBURSTS, ABLE TO REORIENT TO SITUATION AND CALM PT. DOING WELL ON PRECEDEX FOR ETOH WITHDRAWAL. UO CONTINUED TO BE LOW, ORDERS RECEIVED FOR BUMEX AND ADDITIONAL ALBUMIN DOSES WITH GOOD RESULT. CARDIOLOGY CONSULT CALLED PER DR JOSEPH DUE TO EF ON ECHO AT 15%. DR TRUJILLO UPDATED ON PT STATUS. SHIFT OUTPUT 1550 ML. ABLE TO LOWER O2 NC TO 6L AND O2 SAT STAYING MID TO HIGH 90S. AT BEDSIDE FOR MOST OF SHIFT WITHOUT ISSUES. VSS AT THIS TIME. RESTING COMFORTABLY ON 0.5 MCG PRECEDEX.
--- NOTE | 2024-11-15 20:00 | NUR ---
ASSUMPTION OF CARE CARE OF PT ASSUMED FOLLOWING BEDSIDE REPORT RECEIVED FROM DAY RN. PT LYING IN BED WITH IN ROOM. PT IS ASKING TO LEAVE AND ASKING WHEN HE WILL BE ALLOWED TO LEAVE. PT IS ALERT AND ORIENTED THOUGH DROWSY. ANSWERS ALL QUESTIONS CORRECTLY. REPORTEDLY CONFUSED INTERMITTENTLY. PT DENIES CHEST PAIN/PRESSURE, SOB, AB PAIN, N/V. A FIB RHYTHM 90-110. PO METOPROLOL TO BE HELD FOR NOW, LOPRESSOR PUSHES ON MAR IF NEEDED (HR OVER 110). BP STABLE. RESPIRATIONS REGULAR AND W/O EXTRA EFFORT. 100% SAT ON 6L NC- WILL DECREASE TO 4L. BOWEL SOUNDS ACTIVE. WILL CONSIDER TESTING PT SWALLOW DURING SHIFT IF APPROPRIATE. PRECEDEX AT 0.5. HEPARIN AT 15. NS AT 50. PT HAS CALL LIGHT HANDY. LEAVES DURING ASSESSMENT.
[2024-11-16] VITALS (27 sets, daily range): BP systolic 95–138; BP diastolic 53–108
[2024-11-16 04:23] LABS: Hematocrit 35.1 % (37.0-53.0); Hemoglobin 11.5 g/dL (13.5-17.5)
[2024-11-16 04:42] LABS: Albumin, Blood 2.7 g/dL (3.4-5.0); Anion Gap 9 mmol/L (3-11); Blood Urea Nitrogen 31 mg/dL (8-24); Bun/Creatinine Ratio 10.1 (12.0-20.0); CO2, Blood 25 mmol/L (21-32); Calcium, Blood 7.4 mg/dL (8.5-10.1); Chloride, Blood 106 mmol/L (98-108); Creatinine, Blood 3.06 mg/dL (0.60-1.20); Glomerular Filtration Rate 22 (60-); Glucose, Blood 85 mg/dL (70-99); Magnesium, Blood 1.4 mg/dL (1.6-2.4); Phosphorus, Blood 2.8 mg/dL (2.5-4.9); Potassium, Blood 3.2 mmol/L (3.5-5.5); Sodium, Blood 137 mmol/L (136-145); Vancomycin, Random 17.8 ug/mL
[2024-11-16] MEDS ORDERED: Dose Adjust by Pharmacy XX STA ×3 (05:12→19:32)
[2024-11-16] MEDS ORDERED: Potassium Chl 20MEQ/Water100ML 100 ML IV ONE (05:50)
[2024-11-16] MEDS ORDERED: WATER IV SCH (05:50)
[2024-11-16] MEDS ORDERED: MAGNESIUM SULF IV SCH (05:50)
[2024-11-16] MEDS ORDERED: Vancomycin HCL 1,250 MG in NS 250 ML IV ONE (06:00)
--- NOTE | 2024-11-16 06:43 | NUR ---
SHIFT SUMMARY PT LYING IN BED, ALERT AND ORIENTED BUT CONFUSED WHEN AWAKES FROM SLEEP. PRECEDEX INFUSING AT 0.5. HEPARIN INFUSING AT 16. PT IN A FIB 90-110/MIN, PO METOPROLOL NO ADMINISTERED DUE TO ASPIRATION RISK AND NO PRN IV LOPRESSOR GIVEN DUE TO RATE NOT EXCEEDING 110. BP STABLE ALL SHIFT. PT WEANED TO 2L NC WITH 99% SATURATION. A TRIAL OF ZERO OXYGEN BEGUN AT 0630. NO CHEST PAIN/PRESSURE, SOB, AB PAIN, N/V DURING SHIFT. AB DISTENDED WITH HYPOACTIVE BOWEL SOUNDS. LEA IN PLACE DRAINED 1800ML YELLOW URINE. PT HAS CALL LIGHT HANDY. PT WANTS TO GO HOME BUT LISTENS TO ADVICE TO STAY. BEDSIDE REPORT GIVEN TO ONCOMING DAY RN.
--- NOTE | 2024-11-16 07:57 | NUR ---
ASSUMED CARE OF PATIENT AT APPROXIMATELY 0700. BEDSIDE REPORT RECEIVED FROM MARILOU REA. PT ASLEEP DURING BEDSIDE REPORT BUT ROUSES BRIEFLY TO VOICES. CONTINUOUS CARDIAC MONITORING IN PLACE SHOWS AFIB, BP STABLE. ON RA c O2 SATURATIONS > 92%. LEA PATENT AND DRAINING TO GRAVITY. PRECEDEX INFUSING AT 0.5 MCG/KG/HR, HEPARIN INFUSING AT 16 U/KG/HR. SEE SHIFT ASSESSMENT FOR FULL DETAILS.
[2024-11-16] MEDS ORDERED: MAGNESIUM SULFATE IV ONE (08:00)
[2024-11-16] MEDS ORDERED: NS IV ONE (08:00)
[2024-11-16] MEDS ORDERED: Albumin Human 50 ML IV SCH (09:00)
[2024-11-16] MEDS ORDERED: Bumetanide 0.25 MG/ML 10ML Vial IV SCH (09:00)
[2024-11-16] MEDS ORDERED: FentaNYL Citrate 50 MCG/ML 2 ML Injection IV PRN (12:30)
--- NOTE | 2024-11-16 14:19 | NUR ---
CBG RECHECKED DUE TO BLOOD SUGARS TRENDING DOWN. RECHECK AT 1419 WAS 68. PT GIVEN 240 mL ORANGE JUICE. 30 MINUTE RECHECK POST ORANGE JUICE CONSUMPTION WAS 83. WILL CONTINUE TO MONITOR.
--- NOTE | 2024-11-16 17:27 | NUR ---
SHIFT SUMMARY PT REMAINED ALERT AND ORIENTED X 4 T/O ENTIRETY OF SHIFT. ABLE TO FOLLOW COMMANDS, MAKE PURPOSEFUL MOVEMENTS, AND MAKE NEEDS KNOWN. AFEBRILE. REPORTED ONE EPISODE OF L KNEE PAIN AT 12/18. MEDICATED PER EMAR c GOOD BENEFIT. CIWA SCORES 5-6. PRECEDEX REMAINS ON SB. CONTINUOUS CARDIAC MONITORING IN PLACE SHOWS AFIB c HR IN 90'S-120'S. ONE DOSE OF IV LOPRESSOR GIVEN, PO METOPROLOL FREQUENCY UPDATED PER HOSPITALIST. BP STABLE c MAPS > 65. ON RA c O2 SATURATIONS > 92%. NO BM THIS SHIFT. JESSICA SWALLOW EVAL FAILED, ST EVAL AND TX COMPLETED, SEE ORDERS. Q6 CBG'S, SEE NOTE REGARDING LOW CBG. LEA PATENT AND DRAINING TO GRAVITY. HEPARIN INFUSING AT 17 U/KG/HR. WILL CONTINUE TO MONITOR AND REPORT TO ONCOMING RN.
[2024-11-16] MEDS ORDERED: Metoprolol Tartrate 25 MG Tab PO SCH (18:00)
--- NOTE | 2024-11-16 20:06 | NUR ---
ASSUME CARE: BEDSIDE REPORT RECIEVED BY MELVIN RN. PT UP TO COMMODE W/2 PERSON ASSIST VIA WALKER, PT APPEARS WEAK W/STANDING AND AMBULATION. PT A/Ox4 AND ABLE TO MAKE NEEDS KNOWN. SBP 120s, MAP>65. MONITOR SHOWS AFIB, RATE 120s AT REST TO 160s W/EXCERTION. SPO2>95% ON RA. PT DENIES CP OR SOB. LEA PATENT DRAINING TO GRAVITY. PT IN ROOM. THIS RN AND TANK MAKER WOOD HAD DISCUSSION W/ PT ABOUT GOING HOME, STATES SHE IS SCARED TO DRIVE AND PT STATES SHE DOES NOT HAVE A LICENSE AND SHOULD NOT DRIVE. PT BECAME AGITATED AND STATES HE WILL LEAVE AMA DESPITE HIM BEING VERY WEAK AND NOT ABLE TO WALK. WILL BE ALLOWED TO STAY AT THIS TIME, BUT WAS TOLD IF THERE ARE ANY ISSUES SHE WILL HAVE TO LEAVE. WILL UPDATE NEEDED.
[2024-11-16] MEDS ORDERED: D5W-1/2NS 1,000 ML IV SCH (23:25)
[2024-11-17] VITALS (26 sets, daily range): BP systolic 95–143; BP diastolic 69–122
[2024-11-17] MEDS ORDERED: OxyCODONE 5 mg/Acetamin 325 mg TABLET PO PRN (00:35)
[2024-11-17 02:21] LABS: Hematocrit 37.3 % (37.0-53.0); Hemoglobin 12.5 g/dL (13.5-17.5)
[2024-11-17 02:40] LABS: Alanine Aminotransfer (ALT/SGP 106 U/L (12-78); Albumin, Blood 2.9 g/dL (3.4-5.0); Alk Phos 75 U/L (50-136); Anion Gap 10 mmol/L (3-11); Aspartate Aminotrans (AST/SGOT 191 U/L (12-37); Bilirubin, Total 2.9 mg/dL (0.1-1.0); Blood Urea Nitrogen 29 mg/dL (8-24); Bun/Creatinine Ratio 11.3 (12.0-20.0); CO2, Blood 27 mmol/L (21-32); Calcium, Blood 8.2 mg/dL (8.5-10.1); Chloride, Blood 103 mmol/L (98-108); Creatinine, Blood 2.56 mg/dL (0.60-1.20); Globulin, Blood 2.9 g/dL (2.2-4.0); Glomerular Filtration Rate 27 (60-); Glucose, Blood 109 mg/dL (70-99); Magnesium, Blood 1.4 mg/dL (1.6-2.4); Phosphorus, Blood 1.7 mg/dL (2.5-4.9); Sodium, Blood 137 mmol/L (136-145); Total Protein, Blood 5.8 g/dL (6.4-8.2)
[2024-11-17] MEDS ORDERED: Dose Adjust by Pharmacy XX STA ×4 (02:47→23:46)
[2024-11-17] MEDS ORDERED: Magnesium Sulf 2 GM/Water 50ML 50 ML IV ONE (02:50)
[2024-11-17] MEDS ORDERED: D5W-1/2NS 1,000 ML IV SCH (03:00)
[2024-11-17] MEDS ORDERED: Potassium Chloride 40 MEQ in NS 250 ML IV ONE ×2 (03:30→14:00)
[2024-11-17] MEDS ORDERED: Sodium Phosphate 30 MM in Dextrose 5% 500 ML IV ONE (03:30)
--- NOTE | 2024-11-17 06:03 | NUR ---
CALL TO MD CALL TO DR CURRY REGARDING TACHYCARDIA WITH HEART RATE 150-170 AFTER LOPRESSOR GIVEN. RECEIVED ORDER FOR AMIODARONE 150 MG IV BOLUS
--- NOTE | 2024-11-17 06:16 | NUR ---
SHIFT SUMMARY: PT A/Ox4 AND ABLE TO MAKE NEEDS KNOWN. SBP 130s, MAP>65. MONITOR SHOW AFIB RATE 120s-160s, MEDICATED PER EMAR. SPO2>95% ON RA. PT WAS NOT ABLE TO GET MUCH SLEEP COMPLAINING OF PAIN IN HIS LEFT KNEE DESPITE MEDICATIONS GIVEN. LEA PATENT DRAINING TO GRAVITY. AT BEDSIDE THROUGHOUT THE NIGHT. PT CBG LOW AT 0000, HOSPITALIST CALLED W/ NEW ORDERS GIVEN. WILL REPORT TO ONCOMING RN.
--- NOTE | 2024-11-17 07:58 | NUR ---
PER DR BETH REPEAT LABS MG, K, PHOS AT 1200 CALL WITH RESULTS BY 1300.
[2024-11-17] MEDS ORDERED: Metoprolol Tartrate 50 MG Tab PO SCH (09:00)
[2024-11-17 12:40] LABS: Magnesium, Blood 1.7 mg/dL (1.6-2.4); Potassium, Blood 2.9 mmol/L (3.5-5.5)
--- NOTE | 2024-11-17 17:56 | NUR ---
SHIFT SUMMARY NEURO: PATIENT ALERT AND ORIENTED X 3-4. INTERMITTENTLY CONFUSED. SOME VISUAL HALLUCINATIONS. AFEBRILE. MOVE HIS EXTREMITIES WELL BUT BLE WEAK. CIWA: 4-21. ATIVAN ADMIN PRN FOR AGITATION/WITHDRAWL SS MANAGEMENT- SEE MAR FOR DETAILES. CARDIAC: AFIB/AFIB RVR HR 120-140S TODAY. SBP 110S-140S. CARDIOLOGY BY TO SEE PT SEE NOTE EVAL. LUNGS: UPPER LOBES CLEAR, RML/RLL COARSE. NO COUGH. UANBLE TO COLLECT SPUTUM CULTURE. ON 2L WHILE SLEEPIGN DUE TO SHALLOW BREATHING GI: NO BM, ATTEMPTED TO STOOL X2. ABDOMEN IS MODERATLEY DISTENDED. +NAUSEA THROUGH OUT THE DAY. : LEA IN AND DRAINING TO GRAVITY. OVER 2L OUT TODAY SKIN: INTACT. NO WOUNDS OR OPEN AREAS. MOBILITY: FWW SMALL SHUFFLED STEPS TO RECLINER. VERY WEAK BLE. PT INSISTED ON GETTING UP TO THE RECLINER. POSITIONING DID HELP ANXIEY/BREATHING.
[2024-11-17] MEDS ORDERED: Potassium Chl 10MEQ/Water100ML 100 ML IV ONE (18:00)
--- NOTE | 2024-11-17 20:55 | NUR ---
ASSUME CARE: BEDSIDE REPORT RECIEVED FROM DAYSHIFT RN. PT A/Ox3-4, ANSWERS QUESTIONS CORRECTLY, BUT DOES HAVE SOME CONFUSION. PT MEDICATED W/ATIVAN BEFORE THIS RN START OF SHIFT. PT TRYING TO GET OUT OF BED STATING HE HAS THINGS TO DO, AND HOW IS HE SUPPOSED TO GET BETTER WITHOUT GETTING OUT OF BED. PT REDIRECTED THAT HE IS TOO WEAK AND CONFUSED AT THIS TIME TO GET OUT OF BED. PT ABLE TO REST MORE AND SLEEP ONCE WENT HOME. SBP 130s, MAP>65. MONITOR SHOWS AFIB RYTHM W/ RATE 120s-150s. PT DENIES CP OR PRESSURE. SPO2>95% ON RA. LEA PATENT DRAINING TO GRAVITY. WILL UPDATE NEEDED.
[2024-11-17] MEDS ORDERED: Potassium Chl 20MEQ/Water100ML 100 ML IV ONE (21:50)
[2024-11-18] VITALS (16 sets, daily range): BP systolic 95–140; BP diastolic 73–117
[2024-11-18 04:03] LABS: BASOPHILS ABSOLUTE AUTO 0.05 K/mm3 (0.00-0.23); BASOPHILS PERCENT AUTO 1 % (0-2); EOSINOPHILS ABSOLUTE AUTO 0.09 K/mm3 (0.00-0.68); EOSINOPHILS PERCENT AUTO 1 % (0-6); Hematocrit 37.6 % (37.0-53.0); Hemoglobin 12.3 g/dL (13.5-17.5); IMMATURE GRAN ABSOLUTE AUTO 0.07 K/mm3 (0.00-0.10); IMMATURE GRAN PERCENT AUTO 1 % (0-1); LYMPHOCYTES PERCENT AUTO 15 % (21-46); MONOCYTES ABSOLUTE AUTO 1.14 K/mm3 (0.16-1.47); MONOCYTES PERCENT AUTO 15 % (4-13); Mean Corpuscular HGB 33.3 pg (26.0-34.0); Mean Corpuscular HGB Conc 32.7 g/dL (31.5-36.5); Mean Corpuscular Volume 102 fL (80-100); Mean Platelet Volume 9.2 fL (9.1-12.4); NEUTROPHILS PERCENT AUTO 67 % (41-73); Platelet Count 140 K/mm3 (150-400); RDW Coefficient Variation 20.3 % (11.7-14.2); Red Blood Cell Count 3.69 M/mm3 (4.30-5.90); White Blood Cell Count 7.45 K/mm3 (4.00-11.30)
[2024-11-18 04:34] LABS: Albumin, Blood 3.1 g/dL (3.4-5.0); Anion Gap 9 mmol/L (3-11); Blood Urea Nitrogen 24 mg/dL (8-24); Bun/Creatinine Ratio 10.9 (12.0-20.0); CO2, Blood 27 mmol/L (21-32); Calcium, Blood 8.5 mg/dL (8.5-10.1); Chloride, Blood 104 mmol/L (98-108); Creatinine, Blood 2.21 mg/dL (0.60-1.20); Glomerular Filtration Rate 32 (60-); Glucose, Blood 93 mg/dL (70-99); Magnesium, Blood 1.5 mg/dL (1.6-2.4); Phosphorus, Blood 2.6 mg/dL (2.5-4.9); Potassium, Blood 3.2 mmol/L (3.5-5.5); Sodium, Blood 137 mmol/L (136-145); Vancomycin, Random 16.4 ug/mL
[2024-11-18] MEDS ORDERED: Potassium Chloride 30 MEQ IV SCH (04:50)
[2024-11-18] MEDS ORDERED: Potassium Phosphate Dibasic 10 MM in Dextrose 5% 250 ML IV ONE (04:50)
[2024-11-18] MEDS ORDERED: Magnesium Sulf 2 GM/Water 50ML 50 ML IV ONE ×2 (04:50→07:25)
--- NOTE | 2024-11-18 04:57 | NUR ---
ASSUMED CARE I ASSUMED CARE OF PT AT 0400, RECEIVED REPORT FROM OFFGOING NURSE. PT LYING IN BED, RESTING, RESPONDING TO VERBAL STIMULI. ON ROOM AIR, SATS >90%, HR 110'S, BP STABLE. HEPARIN INFUSING AT 19U. CALL LIGHT IN REACH.
[2024-11-18] MEDS ORDERED: Dose Adjust by Pharmacy XX STA (05:23)
[2024-11-18] MEDS ORDERED: Vancomycin HCL 1,250 MG in NS 250 ML IV SCH (10:00)
--- NOTE | 2024-11-18 13:56 | NUR ---
PCU TRANSFER NOTE PT TRANSFERED TO PCU WITH ALL PERSONAL BELONGINGS VIA RECLINER ACCOMPANIED BY RN X2. AT BEDSIDE. SAFETY, COMFORT, HYGIENE ADDRESSED.
[2024-11-18 14:17] LABS: Magnesium, Blood 2.2 mg/dL (1.6-2.4)
[2024-11-18 14:23] LABS: Bun/Creatinine Ratio 10.6 (12.0-20.0); Calcium, Blood 8.7 mg/dL (8.5-10.1); Creatinine, Blood 2.27 mg/dL (0.60-1.20); Potassium, Blood 3.6 mmol/L (3.5-5.5)
[2024-11-18] MEDS ORDERED: Potassium Chloride 10 Meq Tablet SA PO SCH (14:35)
[2024-11-18] MEDS ORDERED: Spironolactone 25 MG Tab PO SCH (14:35)
--- NOTE | 2024-11-18 15:46 | NUR ---
PT TRANSFERRING TO PCU, REPORT GIVEN TO GLADYS ZAMARRIPA. PT PLEASANTLY CONFUSED THIS AM. ELECTROLYTES REPLACED THIS AM. REPEAT LABS 1200 DRAWN FROM POWER GLIDE IN RUST, THOUGHT TO BE INACCURATE DUE TO AMIO GTT RUNNING PRIOR TO DRAW. REPEAT BG CAPILLARY 104, AWAITING RESULTS. NOTIFIED RN TO CALL DR BETH WITH RESULTS. AT BEDSIDE.
--- NOTE | 2024-11-18 16:13 | NUR ---
PATIENT TRANSFER TO PCU 08 AT 1400. ALERT TO SELF, PLACE, PERSON. AT BEDSIDE. CHAIR ALARM IN PLACE. PATIENT SITTING IN RECLINER. ORIENTED TO ROOM/UNIT. CALL LIGHT IN REACH. PATIENT FOLLOWING COMMANDS. CIWA SCORED 2 UPON ARRIVAL TO PCU. TELE SHOWING AFIB WITH HR 120-140'S. AMIO AND HEPARIN GTT INFUSING PER EMAR. SBP 110-120'S. DENIES CHEST PAIN/PRESSURE/PALPITATIONS. EDEMA NOTED TO BLE AND SCROTUM. ON ROOM AIR AT THIS TIME SATING UPPER 90'S. DENIES SOB/COUGH. LUNG SOUNDS CLEAR AND DIM. LEA CATH IN PLACE DRAINING NAMAN COLORED URINE TO GRAVITY. BOWEL TONES PRESENT. MEDS CRUSHED IN APPLESAUCE. DENIES ABDOMINAL PAIN/NAUSEA. AFTERNOON LABS RE-DRAWN AND RESULTS CALLED INTO DR. BETH. PHYSICAL THERAPY IN TO ASSESS PATIENT. CHAIR ALARM REMAINS IN PLACE. CALL LIGHT IN REACH. PATIENT DENIES NEEDS AT THIS TIME.
--- NOTE | 2024-11-18 18:14 | NUR ---
NO ACUTE CHANGES, SEE PREVIOUS NOTE. PATIENT BACK TO BED, AMIO AND HEPARIN GTT CONTINUE PER EMAR. PATIENT REMAINS IN AFIB WITH HR 120-130'S. SPO2 95% ON ROOM AIR. REFUSED DINNER. ATE A FEW BITES OF PUDDING WITH PILLS AND SIPS OF WATER. LEA CATH CONTINUES TO DRAIN NAMAN COLORED URINE. BED ALARM IN PLACE. CALL LIGHT IN REACH.
[2024-11-18] MEDS ORDERED: Bumetanide 0.25 MG/ML 10ML Vial IV SCH (21:00)
[2024-11-18] MEDS ORDERED: Albumin Human 50 ML IV SCH (21:00)
[2024-11-18] MEDS ORDERED: CefTRIAXone Sodium 1,000 MG in NS 100 ML IV SCH (21:00)
[2024-11-19] VITALS (7 sets, daily range): BP systolic 109–208; BP diastolic 86–99
[2024-11-19 04:17] LABS: BASOPHILS ABSOLUTE AUTO 0.06 K/mm3 (0.00-0.23); BASOPHILS PERCENT AUTO 1 % (0-2); EOSINOPHILS ABSOLUTE AUTO 0.11 K/mm3 (0.00-0.68); EOSINOPHILS PERCENT AUTO 2 % (0-6); Hematocrit 37.1 % (37.0-53.0); IMMATURE GRAN ABSOLUTE AUTO 0.09 K/mm3 (0.00-0.10); IMMATURE GRAN PERCENT AUTO 1 % (0-1); LYMPHOCYTES ABSOLUTE AUTO 0.97 K/mm3 (0.84-5.20); LYMPHOCYTES PERCENT AUTO 14 % (21-46); MONOCYTES ABSOLUTE AUTO 0.97 K/mm3 (0.16-1.47); MONOCYTES PERCENT AUTO 14 % (4-13); Mean Corpuscular HGB 33.6 pg (26.0-34.0); Mean Corpuscular HGB Conc 32.3 g/dL (31.5-36.5); Mean Corpuscular Volume 104 fL (80-100); Mean Platelet Volume 10.2 fL (9.1-12.4); NEUTROPHILS ABSOLUTE AUTO 4.97 K/mm3 (1.96-9.15); NEUTROPHILS PERCENT AUTO 69 % (41-73); Platelet Count 150 K/mm3 (150-400); RDW Coefficient Variation 20.7 % (11.7-14.2); RDW Standard Deviation 80.1 fL (35.1-46.3); Red Blood Cell Count 3.57 M/mm3 (4.30-5.90); White Blood Cell Count 7.17 K/mm3 (4.00-11.30)
[2024-11-19 04:33] LABS: Anion Gap 9 mmol/L (3-11); Blood Urea Nitrogen 25 mg/dL (8-24); CO2, Blood 29 mmol/L (21-32); Calcium, Blood 8.9 mg/dL (8.5-10.1); Chloride, Blood 102 mmol/L (98-108); Creatinine, Blood 2.27 mg/dL (0.60-1.20); Glomerular Filtration Rate 31 (60-); Glucose, Blood 93 mg/dL (70-99); Magnesium, Blood 1.8 mg/dL (1.6-2.4); Phosphorus, Blood 3.3 mg/dL (2.5-4.9); Potassium, Blood 3.8 mmol/L (3.5-5.5); Sodium, Blood 136 mmol/L (136-145)
[2024-11-19] MEDS ORDERED: Heparin Sodium 5000 Units/ML 1ML MDV IV ONE (04:45)
[2024-11-19] MEDS ORDERED: Dose Adjust by Pharmacy XX STA (04:45)
--- NOTE | 2024-11-19 07:30 | NUR ---
SHIFT SUMMARY: PT IS A&OX4. VSS ON RA. A-FIB 110'S-130'S. C/O 9/10 PAIN IN HIS RIGHT KNEE. MEDICATED PER EMAR. HEPARIN AND AMIO GTT INFUSING PER ORDER. PT TOLERATING A PUREED DIET, NO APPETITE, POOR PO INTAKE. TOOK HIS PILLS WHOLE, ONE AT A TIME WITH WATER. LEA CATHETER DRAINING ADEQUATE AMOUNTS OF NAMAN COLORED URINE. NO BM THIS SHIFT. X2 MAX ASSIST WITH FWW TO BSC/CHAIR. CALL LIGHT WITHIN REACH. PT HAS NOT USED HIS CALL LIGHT, JUST HOLLERS OUT TO HALLWAY. BED ALARM SET FOR PT'S SAFETY.
[2024-11-19] MEDS ORDERED: NS 250 ML IV PRN (07:35)
[2024-11-19] MEDS ORDERED: Apixaban 5 MG Tab PO SCH (09:00)
[2024-11-19] MEDS ORDERED: Empagliflozin 10 MG TAB PO SCH (09:00)
[2024-11-19] MEDS ORDERED: Amiodarone HCl 200 MG Tab PO SCH (09:00)
--- NOTE | 2024-11-19 11:34 | NUR ---
CAROLYN GTT STOPPED AT [address] TRUJILLO
[2024-11-19] MEDS ORDERED: Dronabinol 2.5 MG Cap PO SCH (12:00)
--- NOTE | 2024-11-19 13:17 | NUR ---
SHIFT UPDATE HEPARIN GTT DISCONTINUED TODAY, AMIO GTT DISCONTINUED AT [address] HERNÁNDEZ ORDER. PT STARTED ON ORAL AMIO AND ELIQUIS THIS AM. IV TO L AC AND PG TO R FA INFILTRATED TODAY AND WERE REMOVED. CATHETER TIP INTACT. PT REFUSED BREAKFAST, ENSURE PROVIDED REPLACEMENT. PT ENCOURAGED TO EAT HIS MEALS TODAY. PT DID EAT SOME OF HIS LUNCH. MARINOL ALSO STARTED TO HELP WITH APPETITE TODAY. PALLIATIVE IN WITH PATIENT TO DISCUSS CODE STATUS. PT RELUCTANT TO THIS CONVERSATION AND ASKED FOR STAFF TO LEAVE. PALLIATIVE CARE RN CONTINUED CONVERSATION WITH PT OUTSIDE OF ROOM PER PATIENT REQUEST. NO CHANGES IN CODE STATUS AT THIS TIME. CIWA STABLE. PT AGITATED AFTER THIS DISCUSSION, BUT CALMED DOWN EASILY WITHOUT MEDICATION. MEDICATED FOR PAIN ONCE THIS SHIFT SO FAR. UP TO CHAIR WITH 2-3P ASSIST. PT IS EXTREMELY WEAK AND HAS A HARD TIME STANDING. 1L FLUID RESTRICTION STARTED TODAY BY DR. BETH. NO OTHER ACUTE CHANGES IN ASSESSMENT AT THIS TIME.
--- NOTE | 2024-11-19 15:05 | NUR ---
ASUMPTION OF CARE. THIS RN TAKING PRIMARY CARE OF PATIENT OVER FOR COLLETTE ZAMARRIPA. PATIENT IS IN WITH ALCOHOL WITHDRAWL, AFIB W/RVR, CHF WITH LOW EF. PATIENT IS CURRENTLY UP IN RECLINER IN ROOM ON RA SATTING >90%. PATIENTS IS IN AT BEDSIDE- IS EMOTIONAL R/T DISCUSSION WITH PALLIATIVE CARE TEAM TODAY-PLEASE SEE COLLETTE ZAMARRIPA PREVIOUS NOTES. BEDSIDE REPORT RECEIVED FROM COLLETTE ZAMARRIPA, PATIENTS NEED ASSESSED-PATIENT DENIES NEEDS AT THIS TIME. PATIENT HAS HAD A POOR APPETITE PER REPORT. PATIENT IS IRRITABLE AT TIMES. THIS RN TO ASSUME PATIENT CARE.
--- NOTE | 2024-11-19 16:32 | NUR ---
SHIFT SUMMARY. PATIENT IS UP IN RECLINER, IS AT SIDE. PATIENT IS TIRED AND IRRITABLE WHEN WOKEN UP BUT ALLOWS CARE. PATIENT IS ABLE ANSWER QUESTIONS. PATIENT RESTING AT THIS TIME. PATIENT HAS LEA CATHETER THAT IS PATENT AND DRAINING TO GRAVITY. CHAIR IS LOCKED WITH CHAIR ALARM ON. BED IS LOCKED. CALL LIGHT IS IN REACH. NO ACUTE CHANGES NOTED SINCE ASUMPTION OF CARE. NEEDS ASSESSED-PATIENT DENIES NEEDS AT THIS TIME. CARE IS ONGOING.
--- NOTE | 2024-11-19 16:35 | NUR ---
MET WITH THE PATIENT AND HIS TODAY AT THE BEDSIDE. WE DISCUSSED PT'S CODE STATUS, AND HE STATES HE WANTS TO REMAIN A FULL-CODE. IN FACT, HE STATED DISCUSSING THIS MAKES HIM ANGRY. HE STATES HE DOESN'T APPRECIATE NEGATIVE COMMENTS WHEN HE IS ATTEMPTING TO GET WELL. HIS NEGRO IS NON-VERBAL BUT ABLE TO COMMUNICATE USING PEN AND PAPER. SHE REPORTS HAVING A STROKE 11 YEARS AGO. SHE WAS TEARFUL DURING THE CONVERSATION, SPECIFICALLY REGARDING THE PATIENT'S CARDIAC EF OF 15% AND LACK OF ORAL INTAKE. PT CURRENTLY ON A PUREED DIET WITH 1L FLUID RESTRICTION AND HE INS'T EATING MORE THAN A BITE OR TWO, AND IS NOW REQUIRING UP TO 3 PERSON ASSIST FOR TRANSFERS. WORKING WITH [employer] ON RESOURCES FOR DUE TO LACK OF ABILITY TO COMMUNICATE FOR HERSELF BY TELEPHONE OR IN PERSON. PT TO REMAIN A FULL CODE REQUESTED AT THIS TIME.
[2024-11-19] MEDS ORDERED: Metoprolol Succinate 50 MG TABCR PO SCH (19:00)
[2024-11-20 03:36] VITALS: BP 105/81
[2024-11-20 04:16] LABS: BASOPHILS ABSOLUTE AUTO 0.04 K/mm3 (0.00-0.23); BASOPHILS PERCENT AUTO 1 % (0-2); EOSINOPHILS ABSOLUTE AUTO 0.09 K/mm3 (0.00-0.68); EOSINOPHILS PERCENT AUTO 1 % (0-6); Hematocrit 35.7 % (37.0-53.0); Hemoglobin 11.5 g/dL (13.5-17.5); IMMATURE GRAN ABSOLUTE AUTO 0.06 K/mm3 (0.00-0.10); IMMATURE GRAN PERCENT AUTO 1 % (0-1); LYMPHOCYTES ABSOLUTE AUTO 0.73 K/mm3 (0.84-5.20); LYMPHOCYTES PERCENT AUTO 12 % (21-46); MONOCYTES PERCENT AUTO 13 % (4-13); Mean Corpuscular HGB 33.2 pg (26.0-34.0); Mean Corpuscular HGB Conc 32.2 g/dL (31.5-36.5); Mean Corpuscular Volume 103 fL (80-100); Mean Platelet Volume 9.9 fL (9.1-12.4); NEUTROPHILS ABSOLUTE AUTO 4.64 K/mm3 (1.96-9.15); NEUTROPHILS PERCENT AUTO 73 % (41-73); Platelet Count 139 K/mm3 (150-400); RDW Coefficient Variation 20.5 % (11.7-14.2); Red Blood Cell Count 3.46 M/mm3 (4.30-5.90); White Blood Cell Count 6.36 K/mm3 (4.00-11.30)
[2024-11-20 04:24] LABS: Albumin, Blood 3.3 g/dL (3.4-5.0); Anion Gap 11 mmol/L (3-11); Blood Urea Nitrogen 28 mg/dL (8-24); Bun/Creatinine Ratio 11.5 (12.0-20.0); CO2, Blood 30 mmol/L (21-32); Calcium, Blood 9.3 mg/dL (8.5-10.1); Chloride, Blood 102 mmol/L (98-108); Creatinine, Blood 2.44 mg/dL (0.60-1.20); Glomerular Filtration Rate 29 (60-); Glucose, Blood 102 mg/dL (70-99); Phosphorus, Blood 2.9 mg/dL (2.5-4.9); Potassium, Blood 3.5 mmol/L (3.5-5.5); Sodium, Blood 139 mmol/L (136-145)
--- NOTE | 2024-11-20 06:18 | NUR ---
SHIFT SUMMARY. PATIENT A&O X4. CIWAS ARE NEGATIVE. HEART RATED INCREASED TO THE 150'S, MEDICATED PER EMAR. PATIENT IS LABILE. PATIENT STATED HAVING 10/10 PAIN, MEDICATED PER EMAR.
[2024-11-20] MEDS ORDERED: Metoprolol Succinate 50 MG TABCR PO SCH ×2 (07:00→21:00)
[2024-11-20 07:57] VITALS: BP 119/102
[2024-11-20] MEDS ORDERED: OxyCODONE 5 mg/Acetamin 325 mg TABLET PO PRN (08:40)
[2024-11-20] MEDS ORDERED: Methyl Salicylate/Menth/Camph 57 GM TUBE TOP SCH (09:00)
--- NOTE | 2024-11-20 11:41 | NUR ---
CALLED, SPOKE WITH COVERING FOR IN REGARDS TO CBG CHECKS AND INSULIN-PATIENT HAS NOT REQUIRED ANY INSULIN COVERAGE SINCE STARTING INSULIN AND BLOOD SUGARS HAVE REMAINED STABLE, PATIENTS APPETITE HAS IMPROVED AND IS EATING MEALS.
--- NOTE | 2024-11-20 11:44 | NUR ---
TRIALED BLADDER TRAINING-NOT SUCCESSFUL PATIENT DID NOT REMEMBER TO CALL WHEN HE NEEDED TO USE THE BATHROOM. PATIENT IS CONFUSED AT TIMES ALTHOUGH ABLE TO ANSWER ORIENTATION QUESTIONS.
--- NOTE | 2024-11-20 12:03 | NUR ---
MET WITH PT AND AT BEDSIDE THIS MORNING. HE IS AWAKE, ALERT AND ORIENTED. HIS WROTE A NOTE ASKING WHEN HE CAN COME HOME, AND PT STATED THE DOCTOR CAME BY TODAY STATING HIS LABS HAVE IMPROVED. HE STATED HE DOESN'T HAVE A DISCHARGE DATE YET, BUT IS LOOKING FORWARD TO RETURNING HOME. WE DID NOT DISCUSS CODE STATUS OR GOALS OF CARE TODAY PER PATIENT PREFERENCE. PLAN TO GIVE COMMUNITY RESOURCE INFORMATION FROM [facility].
[2024-11-20 12:05] VITALS: BP 120/108
--- NOTE | 2024-11-20 12:39 | NUR ---
TRANSFER OF CARE/DAY NOTE. PATIENT IS A&OX3-4-NEEDS REORIENTATION TO DATE AND HAS BOUGHTS OF CONFUSION. PATIENT APPEARS TO BE IN BETTER SPIRITS THIS MORNING, TALKING TO STAFF AND COOPERATIVE WITH CARE. PATIENTS CONTINUES TO BE UNINTERESTED IN EDUCATION BASED ON PATIENT NEEDS AND CARE. PATIENT IS UP IN CHAIR AND NEEDS ENCOURGAE MENT TO PARTICIPATE IN SOME ACTIVITES. BED BATH AND CATHETER CARE COMPLETED THIS SHIFT. TRIALED BLADDER TRAINING TODAY AND PATIENT REPORTS HE FELT THE URGE TO URINATE BUT FORGOT TO CALL STAFF-PATIENT IS STRICT I&O'S ON A FLUID RESTRICTION AND DIURETICS-LEA CATHETER NOT REMOVED TODAY. DOCTOR ORDERED FOR BENGAY FOR PATIENTS KNEES-PATIENT REPORTED IMPROVEMENT TO THE THROBBING OF HIS KNEES WITH THE BENGAY. PATIENTS DIET ORDERED CHANGED TO SOFT AND BITE SIZED-PER SPEECH THERAPIST MAY MOVE PATIENT TO MOIST AND MENCED IF PATIENT IS NOT ABLE TO TOLERATE SOFT AND BITE SIZED DIET. PATIENT REMAINS ON RA. PATIENT TRANSFERED WITH 2P HEAVY ASSIST. SLIGHT REDNESS NOTED TO BUTTOCKS IS BLANCHABLE. CARE TRANSFERED.
[2024-11-20 15:50] VITALS: BP 112/68
--- NOTE | 2024-11-20 15:51 | NUR ---
REPORT RECEIVED FROM [facility] FOR PATIENT.
--- NOTE | 2024-11-20 16:14 | NUR ---
CARE NOTE/TRANSFER NOTE THIS RN ASSUMED PRIMARY CARE OF PT AT APPROX. 1300 FROM DAMIAN ZAMARRIPA. HE WAS ALERT AND ORIENTED X 4. BP STABLE, PER TELE MONITORING HR WAS AFIB 120'S-130'S. HE DENIED FEELINGS OF CHEST PAIN/PRESSURE, SOB OR FEELINGS OF NAUSEA/VOMITTING. SPO2 MAINTAINED >95% VIA RA. HE WAS A STRONG 2 PERSON ASSIST W/ GAIT BELT AND FWW AND NEEDED MUCH ENCOURAGEMENT TO AMBULATE/MOBILIZE INCLUDING ENCOURAGEMENT TO SIT UP IN CHAIR. HE REPORTED FEELING 10/10 PAIN IN BILATERAL KNEES W/ R KNEE BEING MORE SEVERE. BILAT KNEES NOTED TO BE SWOLLEN. LEA CATHETER WAS REMOVED BY THIS RN AND PW DEVICE WAS PLACED. HIS SIGNIFICANT OTHER CAME TO BEDSIDE THIS AFTERNOON. PT WAS TRANSFERRED TO MEDICAL FLOOR ROOM 349 AT APPROX. 1610 BY THIS RN AND BRIDGET CONRAD.
--- NOTE | 2024-11-20 16:27 | NUR ---
PATIENT ARRIVED TO UNIT VIA BED, ACCOMPANIED BY S/ONEGRO, WHO IS MUTE, AND COMMUNICATES THROUGH WRITING. SHE ASKS IF THIS UNIT MEANS HE IS IMPROVING. EXPLAINED MED FLOOR IS FOR LESS ACUTELY ILL PATIENTS.
--- NOTE | 2024-11-20 18:26 | NUR ---
DISCHARGE SUMMARY: A&Ox4. COOPERATIVE WITH CARE. CAME TO FLOOR WITH PUREWICK THAT WAS NOT IMMEDIATELY CONNECTED TO SUCTION, CAUSING URINE TO LEAK ONTO THE FUAD PAD. ERGO, HE HAS BEEN VERY ANXIOUS ABOUT URINE SOILING HIS BED SINCE AND HAS SHOWN PROFICIENT ABILITY TO UTILIZE CALL SYSTEM TO INQUIRE ABOUT FUNCTIONALITY OF SUCTION FOR PUREWICK. ASKED IF HE'D RATHER TAKE IT OFF AND AMBULATE TO THE BATHROOM AND HE STATED, "NO". MEDS WHOLE c FLUIDS. NO TELE. C/O CHRONIC BILATERAL KNEE PAIN FOR WHICH HE RECEIVES PRN OXY Q6H. S/O, JOSSIE, WHO IS APPARENTLY MUTE, AT BEDSIDE. BED IN LOWEST POSITION. CALL LIGHT WITHIN REACH. REPORT TO ONCOMING NURSE.
[2024-11-20 19:19] VITALS: BP 108/93
[2024-11-21 00:35] VITALS: BP 127/93
[2024-11-21 04:22] VITALS: BP 115/90
--- NOTE | 2024-11-21 05:01 | NUR ---
Shift Summary Pt A&Ox4. Afib 100-110. SpO2 dropped to 70% while pt was asleep. RT and MD notified. Placed pt on CPAP, pt did not tolerate beyond 10 minutes. Titrating oxygen between 5-15L via oxymask to maintain SpO2 93%. While fully awake pt is 97% on RA. Pt on purewick d/t intermittent incontinence and diuretics. Bedrest maintained with repositioning schedule. Bed alarm is on. Call light is within reach.
[2024-11-21 08:00] VITALS: BP 109/87
[2024-11-21 08:35] LABS: Hematocrit 37.9 % (37.0-53.0)
[2024-11-21 08:55] LABS: Albumin, Blood 3.5 g/dL (3.4-5.0); Anion Gap 9 mmol/L (3-11); Blood Urea Nitrogen 28 mg/dL (8-24); Bun/Creatinine Ratio 11.2 (12.0-20.0); CO2, Blood 34 mmol/L (21-32); Calcium, Blood 9.7 mg/dL (8.5-10.1); Chloride, Blood 100 mmol/L (98-108); Glomerular Filtration Rate 28 (60-); Glucose, Blood 85 mg/dL (70-99); Magnesium, Blood 1.6 mg/dL (1.6-2.4); Phosphorus, Blood 4.1 mg/dL (2.5-4.9); Potassium, Blood 3.5 mmol/L (3.5-5.5); Sodium, Blood 139 mmol/L (136-145)
[2024-11-21] MEDS ORDERED: Bumetanide 0.25 MG/ML 4ML ViaL IV SCH (09:00)
[2024-11-21] MEDS ORDERED: Thiamine HCl 100 MG Tab PO SCH (09:00)
[2024-11-21] MEDS ORDERED: Potassium Chloride 10 Meq Tablet SA PO SCH (09:00)
[2024-11-21] MEDS ORDERED: Magnesium Sulf 2 GM/Water 50ML 50 ML IV ONE (11:00)
[2024-11-21] MEDS ORDERED: Bisacodyl 5 MG TabEC PO PRN (11:10)
[2024-11-21] MEDS ORDERED: Sennosides 8.6 MG Tab PO SCH (11:15)
--- NOTE | 2024-11-21 11:21 | NUR ---
Spiritual care visit conducted. Patient is lying in bed and alert. Magalys, his spuse, is bedside. He tells me about how frustrated that he is by his current condition, stating that he is uncomfortable and in pain. He says that what is most important to him is to go home. He explains that he can be grumpy at how as easily as he can be grumpy in the hospital. He shares about his coping mechanism is sarcasm and that he has no hopes in worship, God or for his future. He voices that life is what you make it so then I asked him about his admitted poor attitude, which garnished a laugh from the patient. I reinforced helpful attitudes and practices, highlighted the hope that remains in him and provided therapeutic listening and established therapeutic alliance. I will continue to remain available.
[2024-11-21 12:18] VITALS: BP 109/73
[2024-11-21 15:57] VITALS: BP 106/83
--- NOTE | 2024-11-21 16:56 | NUR ---
SUMMARY- PT A/O X3, IRRITABLE AND SHORT. WORKED WITH PHYSICAL THERAPY TODAY AND SAT IN THE CHAIR MOST OF THE DAY. PAIN CONTROLLED WITH PERCOCET APPROX Q4 FOR FOOT LEG AND BACK PAIN. PT IN URGE INCONT, USING MALE PUREWICK. DIURESING PT, ON FLUID RESTRICTION. TOLERATING 100% OF MEALS. CONT TO NEED OXYGEN 5L/NC, CONT PULSE OX SATS 96%, DECREASED TO 3L, OCC PT TAKES OXYGEN OFF, DESATS TO MID 80'S WITHOUG OXYGEN. PALLIATIVE CONSULTED, PLAN TO SEND PT HOME WITH HOSPICE. IN THE ROOM ALL OF THE SHIFT, MUTE, WRITES COMMUNICATION. HAS BEEN STAYING IN THE ROOM, HAS NO FOOD OR RESOURCES. STAFF SUPPLYING PT WITH FOOD AND TOILETRIES. WILL REPORT TO NOC RBN
[2024-11-21 19:55] VITALS: BP 119/94
--- NOTE | 2024-11-22 04:24 | NUR ---
SHIFT SUMMARY ADMIT SINCE 11/12/24 FOR HEW HFrEF, MELINA ON CKD, ETOH MISUSE, AFIB RVR. FULL CODE. 1,000 CC FLUID RESTRICTION. DAILY WEIGHTS. STRICT I&Os. TELEMETRY: AFIB 89 BPM. 2ND DAY EATING SOLIDS, NO BM SINCE 11/16. BOWEL CARE PER EMAR. PICC IN E. OXYGEN AT 2L NC, BASELINE IS RA. PT REQUESTING NORCO Q4-7H FOR CHRONIC PAIN IN KNEES/ELBOWS. PT DECLINING SCDS, AMY HOSE, AND TRANSFER TO BED, REMAINS IN RECLINER. 2-PERSON ASSIST W/GAIT BELT AND FWW. , MARIA LUISA, AT BEDSIDE OVERNIGHT. PT NOT TOLERATING CPAP. PLAN FOR D/C HOME WITH PALLIATIVE OR HOSPICE. PT PREFERS THIS RATHER THAN SNF.
[2024-11-22 05:33] VITALS: BP 111/94
[2024-11-22 06:10] LABS: Hematocrit 38.3 % (37.0-53.0); Hemoglobin 12.1 g/dL (13.5-17.5)
[2024-11-22 06:36] LABS: Albumin, Blood 3.3 g/dL (3.4-5.0); Anion Gap 6 mmol/L (3-11); Blood Urea Nitrogen 33 mg/dL (8-24); Bun/Creatinine Ratio 12.9 (12.0-20.0); CO2, Blood 37 mmol/L (21-32); Calcium, Blood 10.2 mg/dL (8.5-10.1); Chloride, Blood 97 mmol/L (98-108); Creatinine, Blood 2.56 mg/dL (0.60-1.20); Glomerular Filtration Rate 27 (60-); Glucose, Blood 105 mg/dL (70-99); Phosphorus, Blood 4.9 mg/dL (2.5-4.9); Potassium, Blood 3.4 mmol/L (3.5-5.5); Sodium, Blood 137 mmol/L (136-145)
[2024-11-22] MEDS ORDERED: Potassium Chloride 10 Meq Tablet SA PO ONE (07:10)
[2024-11-22 07:24] VITALS: BP 109/79
[2024-11-22] MEDS ORDERED: Potassium Chloride 10 Meq Tablet SA PO SCH (09:00)
[2024-11-22] MEDS ORDERED: Bumetanide 0.25 MG/ML 4ML ViaL IV SCH (09:00)
[2024-11-22] MEDS ORDERED: Spironolactone 50 MG Tab PO SCH (09:00)
[2024-11-22] MEDS ORDERED: Multivitamins 1 Tab PO SCH (09:00)
--- NOTE | 2024-11-22 10:50 | NUR ---
MET WITH PT AND SPOUSE YESTERDAY EVENING. HE PREVIOUSLY WAS NOT OPEN TO DISCUSSING HOSPICE, BUT WAS OPEN TO THE DISCUSSION. SPOKE WITH DR. QUINTANILLA LAST EVENING, WHO STATED THEY WOULD HAVE A FOLLOW UP CONVERSATION WITH HIM. THE PATIENT HAS MADE IT CLEAR HE IS VERY ANXIOUS TO DISCHARGE HOME. THIS PCRN EXPRESSED THE CONCERN TO HOSPITALIST THIS MORNING THAT WITHOUT FOLLOW UP CONVERSATION IN A TIMELY MANNER, THE PATIENT MAY LEAVE AMA. DR. QUINTANILLA STATES THIS MORNING THIS WILL BE FOLLOWED UP ON.
[2024-11-22] MEDS ORDERED: PACERONE100 M1 PO ×4 (12:59→13:20)
[2024-11-22] MEDS ORDERED: Percocet 5-3251 EACH PO (13:11)
[2024-11-22] MEDS ORDERED: B-1100 M1 PO (13:13)
[2024-11-22] MEDS ORDERED: KLOR-CON 1010 ME9 PO (13:13)
[2024-11-22] MEDS ORDERED: METO5 PO (13:14)
[2024-11-22] MEDS ORDERED: BUME2 PO (13:15)
[2024-11-22] MEDS ORDERED: Isosorbide Mono30 MG PO (13:16)
[2024-11-22] MEDS ORDERED: METF500 PO (13:17)
[2024-11-22] MEDS ORDERED: METO100ER PO (13:17)
[2024-11-22] MEDS ORDERED: ELIQUIS5 M2 PO (13:18)
[2024-11-22] MEDS ORDERED: JARDIANCE10 MG PO (13:23)
[2024-11-22 15:08] VITALS: BP 104/93
--- NOTE | 2024-11-22 16:10 | NUR ---
ASSUMED CARE OF PT PT UP IN CHAIR A/O X 2 FORGETFUL BUT COOPERATIVE WITH CARE. PT STATED HE WOULD PROBABLY BE GOING TODAY BUT CURRENTLY I DONT FEEL PT IS READY TO GO. ATTEMPTED TO STAND PT WITH FWW BUT WAS VERY UNSTEADY AND ALMOST FELL SEVERAL TIMES. PT REMAINS IN RECLYNER. PURWIC WAS REMOVED AND PT SUCCSSFULLY USED URINAL INDEPENDANTLY. AT BEDSIDE TO ASSIST WITH CARE BOTH ABLE TO MAKE NEEDS MET.
--- NOTE | 2024-11-22 16:14 | NUR ---
MD INTO SEE PT, AND DISCHARGE ORDERS WERE GIVEN, WHEN IT WAS TIME FOR PT DISCHARGE PT WAS NOT WILLING TO GO TODAY BUT STATED HE PLANNED TO LEAVE TOMORROW, WAS CONCWERNED WITH TAKING HOME TODAY BUT WAS WILLING IF THERE WAS A DISCHARGE WITH HOME HEALTH. CASE MANAGEMENT WAS NOTIFIED AND IT WAS DECIDED THAT PT WOULD LEAVE IN THE MORNING. WILL CONT TO MONITOR PT
[2024-11-22 19:31] VITALS: BP 93/71
--- NOTE | 2024-11-22 21:19 | NUR ---
CALLED HOSPITALIST INFORMED HIM OF SOFT BP. HOSPITALIST INFORMED ME THAT I COULD SAFELY GIVE THE OTHER MEDICATIONS EXCEPT METOPROLOL. SEE EMAR
[2024-11-23 03:38] VITALS: BP 100/80
--- NOTE | 2024-11-23 04:15 | NUR ---
SHIFT SUMMARY ADMIT SINCE 11.12.24 FOR HFrEF, EtOH WITHDRAWAL, MELINA ON CKD, AFIB RVR. FULL CODE. 1,000 CC FLUID RESTRICTION. DAILY WT. STRICT I&OS. TELEMETRY: AFIB @ 80-103 BPM. SOFT BP OF 93/73 - TOPROL XL HELD, AND AMIODARONE GIVEN PER MD. NO BM SINCE 11/16. BOWEL CARE PER EMAR. IMPROVING STRENGTH. ABLE TO HOLD SELF UP BRIEFLY UPON STANDING. PATENT PICC IN LUE. OXYGEN AT 2L NC, BASELINE IS RA. PT REMAINS IN RECLINER OVERNIGHT. PT DID ATTEMPT TO GIVE , MARIA LUISA, HIS DOSE OF 0033 PERCOCET, THEN DID TAKE THE DOSE. PT EDUCATED HE MUST NOT GIVE HIS MEDICATIONS TO HIS , AND THAT IS ENCOURAGED TO SEEK CARE IN THE ER IF NEEDING MEDICAL TREATMENT. PT TO EVAL THIS AM. CARE MANAGEMENT TO HELP SET UP HOME HEALTH FOR PT, AND PLAN IS TO DISCHARGE HOME THIS AM.
[2024-11-23 06:26] LABS: Hematocrit 37.1 % (37.0-53.0); Hemoglobin 11.8 g/dL (13.5-17.5)
[2024-11-23 06:40] LABS: Albumin, Blood 3.3 g/dL (3.4-5.0); Anion Gap 7 mmol/L (3-11); Blood Urea Nitrogen 35 mg/dL (8-24); Bun/Creatinine Ratio 13.5 (12.0-20.0); CO2, Blood 37 mmol/L (21-32); Calcium, Blood 10.3 mg/dL (8.5-10.1); Chloride, Blood 99 mmol/L (98-108); Glomerular Filtration Rate 27 (60-); Glucose, Blood 91 mg/dL (70-99); Magnesium, Blood 1.9 mg/dL (1.6-2.4); Phosphorus, Blood 4.2 mg/dL (2.5-4.9); Potassium, Blood 3.5 mmol/L (3.5-5.5); Sodium, Blood 139 mmol/L (136-145)
[2024-11-23] MEDS ORDERED: SPIR25 PO (11:16)
--- NOTE | 2024-11-23 12:53 | NUR ---
ASSUMED CARE OF PT. PT AND AT BEDSIDE WAITING DISCHARGED THEY ARE ALREADY DRESSED BUT I EXPLAINED CASE MANAGEMENT NEEDED TO CALL RIDE FOR PT, SO FAR PT HAS BE COOPERATIVE. NON SPEAKING AT BEDSIDE, I WENT OVER DISCHARGE INSTRUCTION WITH PT AND AT LENGTH ABOUT NEW MEDICATIONS AND FOLLOW UP APPOINTMENT, BOTH STATED THEY UNDERSTOOD INSTRUCTIONS. I REPEATED IF THEY TRULY UNDERSTOOD AND NODDED HEAD YES. MOTIONED SHE DIDNT HAVE MONEY ON HER FOR THE NEW MEDICATIONS AND WOULD LIKE TO TAKE SOME HOME. SHE WROTE SHE JUST DIDNT HAVE MONEY HERE WITH HER BUT COULD GO HOME AND GET MOMEY. HAS BEEN VERY UNCLEAR AND CONFUSING ON WHAT SHE IS ABLE TO DO AND NOT DO, PT WAS ADAMANT THAT HE WOULD LEAVE IF RIDE DID NOT SHOW UP AT 1230. FORTUNANTLY MELINDA SHOWED UP AT 1230 AND PT WAS DISCHARGED HOME HEALTH WILL CONTACT. IV TYE, MELINDA PICKED UP PT.
[2024-11-24] MEDS ORDERED: Amiodarone HCl 200 MG Tab PO SCH (09:00)
[2024-11-29] MEDS ORDERED: Amiodarone HCl 200 MG Tab PO SCH (09:00)
== END 2024-11-23 12:53 | disposition home health service (06) | DRG 896 ==
LOC: ER 09:52 → PCU 14:16 → ICUE 14:16 → MEDS 14:16 → PCU 15:42 → ICUE 23:57 → PCU 11-18 13:55 → MEDS 11-20 15:56
PROVIDERS: Internal Medicine Nephrology; Nurse Practitioner Acute Care; Student in an Organized Health Care Education/Training Program; ADMIT Internal Medicine
PROC: HZ2ZZZZ Detoxification Services for Substance Abuse Treatment (ICD-10-PCS; principal; 2024-11-12)
PROC: 4A033R1 Measurement of Arterial Saturation, Peripheral, Percutaneous Approach (ICD-10-PCS; 2024-11-13)
PROC: 3E033XZ Introduction of Vasopressor into Peripheral Vein, Percutaneous Approach (ICD-10-PCS; 2024-11-13)
DX: F10.239 Alcohol dependence with withdrawal, unspecified (principal); A41.9 Sepsis, unspecified organism; I50.21 Acute systolic (congestive) heart failure; J96.01 Acute respiratory failure with hypoxia; J18.9 Pneumonia, unspecified organism; R65.21 Severe sepsis with septic shock; I13.0 Hypertensive heart and chronic kidney disease with heart failure and stage 1 through stage 4 chronic kidney disease, or unspecified chronic kidney disease; E87.1 Hypo-osmolality and hyponatremia; I42.0 Dilated cardiomyopathy; N17.9 Acute kidney failure, unspecified; I48.20 Chronic atrial fibrillation, unspecified; T88.6XXA Anaphylactic reaction due to adverse effect of correct drug or medicament properly administered, initial encounter; E87.20 Acidosis, unspecified; E87.6 Hypokalemia; G47.34 Idiopathic sleep related nonobstructive alveolar hypoventilation; D63.1 Anemia in chronic kidney disease; Y90.6 Blood alcohol level of 120-199 mg/100 ml; E88.09 Other disorders of plasma-protein metabolism, not elsewhere classified; N18.30 Chronic kidney disease, stage 3 unspecified; E83.51 Hypocalcemia; E83.42 Hypomagnesemia; R73.9 Hyperglycemia, unspecified; E86.9 Volume depletion, unspecified; M25.562 Pain in left knee; M25.561 Pain in right knee; T50.915A Adverse effect of multiple unspecified drugs, medicaments and biological substances, initial encounter; E83.39 Other disorders of phosphorus metabolism; Z88.0 Allergy status to penicillin; Z79.01 Long term (current) use of anticoagulants
CPT/HCPCS: 36415; 36600; 51701; 51702; 70450; 71045; 71250; 74176; 80048; 80053; 80069; 80076; 80202; 80320; 81001; 82010; 82140; 82330; 82533; 82550; 82803; 82947; 83605; 83690; 83735; 83880; 84100; 84132; 84145; 84300; 84439; 84443; 84484; 85014; 85018; 85025; 85027; 85049; 85520; 85610; 85730; 87040; 87086; 92526; 92610; 93005; 93010; 94660; 94762; 96361; 96365; 96375; 97110; 97161; 97165; 97530; 99285-25; A9270; C1751; C8929; G0480; J0282; J0612; J0692; J0696; J1644; J1650; J2060; J2354; J3010; J3360; J3370; J3411; J3475; J3480; J7030; J7040; J7042; J7050; J7060; J7070; J7799; P9047; Q0167; Q9957

== ENCOUNTER 2024-12-07 13:34 | Inpatient (IN) | payer OTHER ==
[~2024-12-07] VITALS: Ht 190.5 cm; Wt 105.9 kg
[~2024-12-07 13:34] MED LIST changes: +B-1100 M1 PO; +BUME2 PO; +CEFU500T30 PO; +ELIQUIS5 M2 PO; +Isosorbide Mono30 MG PO; +JARDIANCE10 MG PO; +KLOR-CON 1010 ME9 PO; +METF500 PO; +METFORMIN HCL500 M2 PO; +METO100ER PO; +METO5 PO; +METOPROLOL SUCC25 MG PO; +ONE DAILY MUL400 MCG PO; +PACERONE100 M1 PO; +PERIDEX15 ML MM; +Percocet 5-3251 EACH PO; +SPIR25 PO; +VISBIOME 112.51 EACH PO; +XARELTO15 M1
[2024-12-07 14:21] LABS: BASOPHILS ABSOLUTE AUTO 0.06 K/mm3 (0.00-0.23); BASOPHILS PERCENT AUTO 0 % (0-2); EOSINOPHILS ABSOLUTE AUTO 0.01 K/mm3 (0.00-0.68); EOSINOPHILS PERCENT AUTO 0 % (0-6); Hematocrit 41.8 % (37.0-53.0); Hemoglobin 14.1 g/dL (13.5-17.5); IMMATURE GRAN ABSOLUTE AUTO 0.12 K/mm3 (0.00-0.10); IMMATURE GRAN PERCENT AUTO 1 % (0-1); LYMPHOCYTES ABSOLUTE AUTO 0.48 K/mm3 (0.84-5.20); LYMPHOCYTES PERCENT AUTO 3 % (21-46); MONOCYTES ABSOLUTE AUTO 1.35 K/mm3 (0.16-1.47); MONOCYTES PERCENT AUTO 9 % (4-13); Mean Corpuscular HGB 31.2 pg (26.0-34.0); Mean Corpuscular HGB Conc 33.7 g/dL (31.5-36.5); Mean Corpuscular Volume 93 fL (80-100); Mean Platelet Volume 9.7 fL (9.1-12.4); NEUTROPHILS ABSOLUTE AUTO 13.27 K/mm3 (1.96-9.15); NEUTROPHILS PERCENT AUTO 87 % (41-73); Platelet Count 476 K/mm3 (150-400); RDW Coefficient Variation 19.4 % (11.7-14.2); RDW Standard Deviation 66.2 fL (35.1-46.3); Red Blood Cell Count 4.52 M/mm3 (4.30-5.90); White Blood Cell Count 15.29 K/mm3 (4.00-11.30)
[2024-12-07] MEDS ORDERED: Metoprolol Succinate 50 MG TABCR PO ONE (14:30)
[2024-12-07] MEDS ORDERED: Magnesium Sulf 2 GM/Water 50ML 50 ML IV ONE (14:30)
[2024-12-07 14:35] LABS: Albumin/Globulin Ratio 0.6 (0.8-1.8); Bilirubin, Total 1.3 mg/dL (0.1-1.0); Calcium, Blood 9.6 mg/dL (8.5-10.1); Creatinine, Blood 6.93 mg/dL (0.60-1.20)
[2024-12-07] MEDS ORDERED: NS 1,000 ML IV SCH ×2 (14:35→22:30)
[2024-12-07] MEDS ORDERED: Potassium Chloride 20 MEQ TabCR PO ONE (14:40)
[2024-12-07 15:39] LABS: Source, Urine Straight Cath
[2024-12-07 16:36] LABS: Blood, Urine 2+ (Neg); Glucose Qualitative, Urine Neg (Neg); Ketones, Urine Neg (Neg); Leukocyte Esterase, Urine Neg (Neg); Nitrite, Urine Neg (Neg); Protein, Urine 2+ (Neg); Specific Gravity, Urine 1.025 (1.003-1.022); Urobilinogen, Urine NORM (Normal)
[2024-12-07 16:37] LABS: Appearance, Urine Clear (Clear); Bilirubin, Urine 1+ (Neg); Color, Urine Yellow (P-Yellow)
[2024-12-07 16:39] LABS: Bacteria Many /hpf; Squamous Epithelial Cells Few /hpf (Few); White Blood Cells, Urine 0-2 /hpf (0-5)
[2024-12-07] MEDS ORDERED: NS 500 ML IV SCH (17:45)
[2024-12-07] MEDS ORDERED: OxyCODONE 5 mg/Acetamin 325 mg TABLET PO PRN (17:45)
[2024-12-07] MEDS ORDERED: Magnesium Hydroxide Conc 10 ML UDC PO PRN (17:50)
[2024-12-07 18:59] LABS: Bun/Creatinine Ratio 14.9 (12.0-20.0); Calcium, Blood 9.4 mg/dL (8.5-10.1); Creatinine, Blood 6.7 mg/dL (0.60-1.20); Potassium, Blood 3.2 mmol/L (3.5-5.5)
[2024-12-07 20:38] VITALS: BP 111/93
[2024-12-07] MEDS ORDERED: Apixaban 5 MG Tab PO SCH (21:00)
[2024-12-07] MEDS ORDERED: Metoprolol Succinate 50 MG TABCR PO SCH (21:00)
--- NOTE | 2024-12-07 21:00 | NUR ---
PT ARRIVED FROM ED. SKIN SWARM DONE WITH BRIGITTE TAVERAS RN. MULTIPLE SCRATCHES/ABRASIONS NOTED TO LOWER EXTREMETIES, BUTTOCKS, AND THIGH AREA. REDNESS NOTED TO SCROTUM/PERINEAL AREA. PICTURES TAKEN AND PLACED IN CHART. UPON ASSESSMENT, PT CONFUSED ON DATE, ALERT AND ORIENTED OTHERWISE. PT REQUESTING NO INFORMATION BE SHARED WITH , WILL PASS ALONG TO DIVERSIFIED CROPS FARMWORKER AND ONCOMING SHIFT RN. DNR BAND PLACED ON PATIENT. PT C/O OF 10/10 PAIN UPON ARRIVAL. PRN PERCOCET GIVEN WITH GOOD EFFECT. PT ORIENTED TO ROOM AND CALL LUCAS. EDUCATED ON FALL PRECAUTIONS. LEA IN PLACE FOR STRICT I/O'S. PT IN NAD. VSS. MD BETH TO BEDSIDE TO ASSESS PATIENT. ORDER FOR CONTINOUS NS AT 75ML/HR, GIVEN PER EMAR. ORDER FOR INDWELLING LEA CATHETER FOR CRTICAL I/O'S. BED IN LOWEST POSISTION AND CALL LIGHT WITHIN REACH.
[2024-12-07 21:27] VITALS: BP 111/93
[2024-12-07 23:10] VITALS: BP 99/68
[2024-12-08 03:11] VITALS: BP 107/76
[2024-12-08 04:16] LABS: BASOPHILS ABSOLUTE AUTO 0.05 K/mm3 (0.00-0.23); BASOPHILS PERCENT AUTO 1 % (0-2); EOSINOPHILS ABSOLUTE AUTO 0.06 K/mm3 (0.00-0.68); EOSINOPHILS PERCENT AUTO 1 % (0-6); Hematocrit 38.3 % (37.0-53.0); Hemoglobin 12.8 g/dL (13.5-17.5); IMMATURE GRAN ABSOLUTE AUTO 0.06 K/mm3 (0.00-0.10); IMMATURE GRAN PERCENT AUTO 1 % (0-1); LYMPHOCYTES PERCENT AUTO 9 % (21-46); MONOCYTES ABSOLUTE AUTO 1.19 K/mm3 (0.16-1.47); MONOCYTES PERCENT AUTO 11 % (4-13); Mean Corpuscular HGB 30.6 pg (26.0-34.0); Mean Corpuscular HGB Conc 33.4 g/dL (31.5-36.5); Mean Corpuscular Volume 92 fL (80-100); Mean Platelet Volume 9.4 fL (9.1-12.4); NEUTROPHILS ABSOLUTE AUTO 8.36 K/mm3 (1.96-9.15); NEUTROPHILS PERCENT AUTO 79 % (41-73); Platelet Count 446 K/mm3 (150-400); RDW Coefficient Variation 19.5 % (11.7-14.2); RDW Standard Deviation 65.7 fL (35.1-46.3); Red Blood Cell Count 4.18 M/mm3 (4.30-5.90); White Blood Cell Count 10.62 K/mm3 (4.00-11.30)
[2024-12-08 04:51] LABS: Magnesium, Blood 2.9 mg/dL (1.6-2.4)
--- NOTE | 2024-12-08 05:14 | NUR ---
SHIFT SUMMARY [id number] SEE PREVIOUS NOTE. PT SLEPT WELL OVERNIGHT. I/O'S MONITOR Q1 HR. PT WITH ADEQUATE URINE OUTPUT. NS @ 75ML/HR INFUSING. NO SIGNS OF FLUID OVERLOAD NOTED. REPOSISTIONED IN BED. PT IN NAD. VSS. DR. IBRAHIM ROUNDED ON PATENT. AWAITING AM LABS TO RESULT AND WILL INFORM MD OF RESULTS.
[2024-12-08 05:19] LABS: Albumin, Blood 2.6 g/dL (3.4-5.0); Anion Gap 15 mmol/L (3-11); Blood Urea Nitrogen 103 mg/dL (8-24); Bun/Creatinine Ratio 17.1 (12.0-20.0); CO2, Blood 28 mmol/L (21-32); Calcium, Blood 9.4 mg/dL (8.5-10.1); Chloride, Blood 89 mmol/L (98-108); Creatinine, Blood 6.01 mg/dL (0.60-1.20); Glomerular Filtration Rate 10 (60-); Glucose, Blood 91 mg/dL (70-99); Phosphorus, Blood 8.7 mg/dL (2.5-4.9); Sodium, Blood 129 mmol/L (136-145)
[2024-12-08] MEDS ORDERED: Potassium Chloride 20 MEQ TabCR PO ONE (05:30)
[2024-12-08] MEDS ORDERED: Potassium Chl 20MEQ/Water100ML 100 ML IV ONE (06:00)
[2024-12-08 08:15] VITALS: BP 103/75
[2024-12-08] MEDS ORDERED: Sevelamer Carbonate 800 MG Tab PO SCH (08:30)
[2024-12-08] MEDS ORDERED: Thiamine HCl 100 MG Tab PO SCH (09:00)
[2024-12-08] MEDS ORDERED: Amiodarone HCl 200 MG Tab PO SCH (09:00)
[2024-12-08 12:24] VITALS: BP 90/65
[2024-12-08 15:31] VITALS: BP 94/70
[2024-12-08 15:38] VITALS: BP 113/78
--- NOTE | 2024-12-08 18:24 | NUR ---
PT SUMMARY; PT ABLE TO WORK WITH PT TODAY RECOMMENDING SNF. ABLE TO USE BSC BUT IS NEEDING ATLEAST 3 PERSONS MAX ASSIST TO TRANSFER. PT HAS BEEN ALERT AND ORIENTED X2-3. VITALS HRR AFIB 80-100'S, SBP 90-100'S METOPROLOL HELD THIS MORNING PER PARAMETERS, SATS ABOVE 95% ON RA, AFEBRILE. NS STILL RUNNING AT 100MLS/HR. LEA DRAINING VIA GRAVITY. URINE DARK YELLOW IN COLOR. PT C/O ALL OVER MOSTLY ON BACK AND BOTH HANDS, APPEARS TO BE ARTHRITIC PAIN HANDS RED AND SWOLLEN PAINFUL TO TOUCH. MEDICATED PER EMAR. NO OTHER COMPLAIN WILL REPORT TO ONCOMING SHIFT
[2024-12-08 20:59] VITALS: BP 104/74
[2024-12-08] MEDS ORDERED: Cyclobenzaprine HCl 10 MG Tab PO ONE (23:25)
[2024-12-09] VITALS (8 sets, daily range): BP systolic 89–109; BP diastolic 60–78
[2024-12-09] MEDS ORDERED: FentaNYL Citrate 50 MCG/ML 2 ML Injection IV ONE
--- NOTE | 2024-12-09 01:05 | NUR ---
PT C/O OF 02/17 GENERALIZED PAIN. PRN PERCOCET GIVEN WITH SOME RELIEF BUT THEN PATIENT AGAIN HAVING PAIN. PATIENT NOT CONSISTENT IN PAIN LOCATION (FIRST SAID BACK, THEN GENERALIZED, THEN STOMACH). MD NOTIFIED. ONE TIME DOSE OF FENTANYL AND FLEXERIL ORDERED. GIVEN AT 2342 FOR UNRELIEVED PAIN. PT'S PAIN IMPROVED AND PT RESTING IN BED. WILL CONTINUE TO MONITOR.
[2024-12-09 04:28] LABS: Hematocrit 35.4 % (37.0-53.0); Hemoglobin 11.8 g/dL (13.5-17.5)
[2024-12-09 05:09] LABS: Albumin, Blood 2.2 g/dL (3.4-5.0); Anion Gap 12 mmol/L (3-11); Blood Urea Nitrogen 95 mg/dL (8-24); Bun/Creatinine Ratio 20.5 (12.0-20.0); CO2, Blood 27 mmol/L (21-32); Calcium, Blood 8.7 mg/dL (8.5-10.1); Chloride, Blood 98 mmol/L (98-108); Creatinine, Blood 4.63 mg/dL (0.60-1.20); Glomerular Filtration Rate 13 (60-); Glucose, Blood 92 mg/dL (70-99); Magnesium, Blood 2.2 mg/dL (1.6-2.4); Potassium, Blood 2.9 mmol/L (3.5-5.5); Sodium, Blood 134 mmol/L (136-145)
[2024-12-09 05:10] LABS: Phosphorus, Blood 5.4 mg/dL (2.5-4.9)
[2024-12-09] MEDS ORDERED: Potassium Chloride 10 Meq Tablet SA PO ONE (05:55)
[2024-12-09] MEDS ORDERED: NS 250 ML IV PRN (06:25)
[2024-12-09] MEDS ORDERED: Potassium Chl 10MEQ/Water100ML 100 ML IV SCH (06:30)
--- NOTE | 2024-12-09 06:42 | NUR ---
SHIFT SUMMARY [id number] PT HAD INCREASED PAIN OVERNIGHT, DIFFICULT TO OBTAIN EXACT LOCATION PT WOULD STATE DIFFERENT PLACES AT DIFFERENT TIMES. MOSTLY SAID IT WAS IN HIS BACK. PT USUALLY MOANS AT BASELINE BUT SEEMED VISIBLY IN PAIN IN BED. ONE TIME DOSE OF FENTANYL AND FLEXERIL GIVEN. PT'S PAIN IMPROVED. PERCOCET GIVEN X 2. LEA REMAINS IN PLACE. LABS IMPROVING. NS DECREASED TO 50ML/HR. POTASSIUM REPLACED. VSS. PT IN NAD.
[2024-12-09] MEDS ORDERED: NS 1,000 ML IV SCH (09:45)
[2024-12-09] MEDS ORDERED: NS 250 ML IV ONE (10:00)
[2024-12-09] MEDS ORDERED: Potassium Chloride 20 MEQ TabCR PO ONE ×2 (13:00→13:30)
--- NOTE | 2024-12-09 18:30 | NUR ---
SHIFT SUMMARY PATIENT AOX2-3 ABLE TO MAKE NEEDS KNOWN. HE DENIES CHEST PAIN OR SOB. HE STATES HE HAS BACK PAIN AND HIS HANDS HURT. HE IS ABLE TO TOLERATE HIS FOOD. HIS BLOOD PRESSURE WAS SOFT THE HOSPITALIST IS AWARE AND ORDERED 250 BOLUS NS. HE DID GET A PERCOCET FOR PAIN WHICH HE DID FALL ASLEEP AFTER. HIS LEA IS PUTTING OUT CLEAR YELLOW URINE.
[2024-12-10] VITALS (7 sets, daily range): BP systolic 103–132; BP diastolic 71–92
[2024-12-10] MEDS ORDERED: OLANZapine 10 MG Vial IM ONE (02:15)
[2024-12-10 03:56] LABS: Base Excess Venous 2.9 mmol/L; Bicarbonate Venous 27.8 mmol/L (24.0-30.0); PCO2 Venous 26.5 mmHg (38-42)
[2024-12-10 03:58] LABS: Hematocrit 35.1 % (37.0-53.0); Hemoglobin 11.8 g/dL (13.5-17.5); pH Blood Venous 7.57 (7.34-7.37)
[2024-12-10 04:16] LABS: Albumin, Blood 2.3 g/dL (3.4-5.0); Anion Gap 12 mmol/L (3-11); Blood Urea Nitrogen 80 mg/dL (8-24); Bun/Creatinine Ratio 23.9 (12.0-20.0); CO2, Blood 24 mmol/L (21-32); Calcium, Blood 9.1 mg/dL (8.5-10.1); Chloride, Blood 100 mmol/L (98-108); Creatinine, Blood 3.35 mg/dL (0.60-1.20); Glomerular Filtration Rate 20 (60-); Glucose, Blood 94 mg/dL (70-99); Magnesium, Blood 1.8 mg/dL (1.6-2.4); Phosphorus, Blood 2.5 mg/dL (2.5-4.9); Potassium, Blood 3.4 mmol/L (3.5-5.5); Sodium, Blood 133 mmol/L (136-145)
[2024-12-10] MEDS ORDERED: Potassium Chloride 20 MEQ TabCR PO ONE ×2 (05:05→07:35)
[2024-12-10] MEDS ORDERED: METO5 PO (05:51)
[2024-12-10] MEDS ORDERED: SPIRONOLACTONE50 MG PO (05:59)
--- NOTE | 2024-12-10 06:57 | NUR ---
PT AWAKE MOST OF THE SHIFT WITH FREQUENT EPISODES OF INCREASED ACTIVITY AND CALLING OUT. PT HAS REPEATEDLY STATED THAT "NOTHING IS WRONG" OR "IM JUST COMPLAINING" WHEN ASKED ABOUT HIS CALLING OUT. PT HAS PULLED OUT THREE IVS THIS SHIFT ALONE, WELL FREQUENTLY REMOVING URINARY CATHETER SECUREMENT AND TELEMETRY PATCHES & LEADS. PT HAS TO BE FREQUENTLY REORIENTED TO BEING IN THE HOSPITAL, THE PRESENCE OF HIS LEA CATH, DATE & TIME OF DAY. PT WAS IRRITABLE AND MILDLY AGITATED THROUGHOUT THE SHIFT. PT WAS MEDICATED FOR PAIN APPROXIMATELY EVERY 6 HOURS ABLE PER ORDER. PT C/O GENERALIZED PAIN.
[2024-12-10] MEDS ORDERED: NS 1,000 ML IV ONE (08:00)
[2024-12-10 08:24] LABS: Base Excess Venous 3.9 mmol/L; Bicarbonate Venous 27.8 mmol/L (24.0-30.0); PCO2 Venous 37.7 mmHg (38-42); pH Blood Venous 7.47 (7.34-7.37)
[2024-12-10] MEDS ORDERED: Metoprolol Succinate 50 MG TABCR PO SCH (09:00)
--- NOTE | 2024-12-10 09:31 | NUR ---
am note this rn assumed care at 0700. vital signs stable. tele afib 97. spo2 >95% on room air. patient is alert and oriented x3-4. patient able to state at the hospital, the month, the year, his name/date of , and able to give some detials as why he is in the hospital. patient reports pain rated at 6 on the numeric pain scale. patient has red swollen right index finger, red index toe, and left red foot, and red scrotum. patient has scratches and scabs on lower exremities that are in various stages of healing. see shift assessment for further detials. Md Mercado and Md Davies in to see patient this monring. patient made medical status with tele.
[2024-12-10] MEDS ORDERED: Cephalexin Monohydrate 500 MG Cap PO SCH ×2 (09:49→21:00)
--- NOTE | 2024-12-10 10:03 | NUR ---
sitter patient has one on one sitter in place still and has been there since the start of shift.
--- NOTE | 2024-12-10 11:21 | NUR ---
transfer of care this rn gave report to dread garcia whom is assuming care at this time. no acute changes since previous note. cath care done. see previous notes
--- NOTE | 2024-12-10 11:41 | NUR ---
ASSUMPTION NOTE: THIS RN TO ASSUME CARE OF PATIENT. PATIENT IS RESTING IN BED,EASILY AROUSABLE TO VOICE. VITAL SIGNS STABLE. PATIENT UNDERSTOOD WE WOULD GET UP TO THE CHAIR FOR LUNCH. PATIENT HAS CALL LIGHT WITHIN REACH & BED IN LOWEST POSITION STATING NOTHING ELSE IS NEEDED AT THIS TIME.
--- NOTE | 2024-12-10 12:39 | NUR ---
TRANSFER NOTE: THIS RN GAVE REPORT TO RECEIVING RN AND PATIENTS BELONGINGS WERE PACKED UP. PATIENT IS ALERT AND ORIETNED X3-4,OCCASIONAL BOUTS OF CONFUSION. PATIENT AWAKE AND EATING LUNCH PRIOR TO LEAVING. TELE CONTINUES TO BE ON AND PATIENT SATTING >92% ON ROOM AIR. PATIENT AWARE OF THE MOVE AND NOTIFIED THAT HIS CALLED EARLIER. PATIENT WAS TAKEN UP VIA BED.
--- NOTE | 2024-12-10 13:27 | NUR ---
TRANSFER SUMMARY: PT TRANSFERRED FROM PCU 13. PT A/O X3 AND ABLE TO ANSWER QUESTIONS APPROPRIATELY. PT APPEARS TO BE TIRED AND SLEEPING PEACEFULLY. PT WITH SITTER IN ROOM D/T PULLING OUT IV'S AND AGITATION T/O THE NIGHT. PT WITH IV TO L WRIST 20G AND NO S/S OF ISSUES OR CONCERNS. PT LEA PATENT AND DRAINING YELLOW URINE. PT WITH MULTIPLE SCRATCHES AND BRUISES TO BLE AND STATES D/T WORKING OUTSIDE. CALL LIGHT WITHIN REACH AND WILL CONTINUE TO MONITOR.
--- NOTE | 2024-12-10 17:03 | NUR ---
END OF SHIFT SUMMARY: PT A/0 X2-3 WITH NOTED FORGETFULNESS AND IMPULSIVENESS NOTED. PT WITH NOTED PAIN TO RIGHT HAND AND X-RAY PERFORMED PER ORDERS. MEDICATIONS ADMINISTERED PER EMAR. PT WITH SCRATCHES AND SCABS TO BLE AND HAD SMALL RED AREA NOTED TO LEFT SIDE/FLANK THAT PT WAS SCRATCHING. SITTER IN ROOM AND BED IN LOWEST POSITION WITH CALL LIGHT WITHIN REACH.
[2024-12-10] MEDS ORDERED: Allopurinol 100 MG Tab PO SCH (18:00)
[2024-12-11 00:54] VITALS: BP 137/87
--- NOTE | 2024-12-11 03:15 | NUR ---
PT PULLED OFF TELE LEADS, HAS BEEN PULLING ON LEA CATHETER, AND YELLING AT STAFF. PT HAS REFUSED PLACEMENT OF LEADS. PT HAS BEEN SITTING AT SIDE OF BED.
[2024-12-11] MEDS ORDERED: OLANZapine 10 MG Vial IM ONE (03:30)
--- NOTE | 2024-12-11 03:30 | NUR ---
CALLED HOSPITALIST CONCERNING PT'S AGITATION, AND RECIEVED ORDERS FOR MEDICATION.
--- NOTE | 2024-12-11 05:14 | NUR ---
SHIFT SUMMARY PT HAS BEEN RESTING COMFORTABLY OVERNIGHT. PT HAS BEEN AOX2-3 OVERNIGHT, AND HAS HAD PERIODS OF CONFUSION AND IMPULSIVITY. HE HAS SITTER FOR INTERFERING W/ MEDICAL DEVICES. PT WAS AGITATED AT 0300, PULLING OFF LEADS, SITTING AT SIDE OF BED. PT WAS GIVEN ZYPREXA (SEE EMAR). PT CURRENTLY RESTING IN BED, CALM AND COOPERATIVE. PT HAS BEEN COMPLAINING OF "PAIN ALL OVER", BUT PARTICULARLY IN RIGHT HAND AND BILAT FEET, AND HE HAS BEEN UNABLE TO GET IN A COMFORTABLE POSITION. PT HAS BEEN IN BED ALL NIGHT, BUT HAS BEEN INSISTENT ON GETTING OOB.
[2024-12-11 05:17] VITALS: BP 133/87
[2024-12-11 05:29] LABS: Hematocrit 37.8 % (37.0-53.0); Hemoglobin 12.3 g/dL (13.5-17.5)
[2024-12-11 06:26] LABS: Albumin, Blood 2.3 g/dL (3.4-5.0); Anion Gap 12 mmol/L (3-11); Blood Urea Nitrogen 60 mg/dL (8-24); Bun/Creatinine Ratio 23.5 (12.0-20.0); CO2, Blood 25 mmol/L (21-32); Calcium, Blood 9.5 mg/dL (8.5-10.1); Chloride, Blood 99 mmol/L (98-108); Creatinine, Blood 2.55 mg/dL (0.60-1.20); Glomerular Filtration Rate 27 (60-); Glucose, Blood 113 mg/dL (70-99); Magnesium, Blood 1.6 mg/dL (1.6-2.4); Phosphorus, Blood 2.4 mg/dL (2.5-4.9); Potassium, Blood 3.3 mmol/L (3.5-5.5); Sodium, Blood 133 mmol/L (136-145)
[2024-12-11] MEDS ORDERED: Potassium Chloride 20 MEQ TabCR PO ONE (06:55)
[2024-12-11 07:32] VITALS: BP 118/88
[2024-12-11] MEDS ORDERED: Potassium Phosphate,Monobasic 500 MG Tablet PO SCH (09:00)
[2024-12-11] MEDS ORDERED: PredniSONE 20 MG Tab PO SCH (09:00)
[2024-12-11] MEDS ORDERED: Metoprolol Succinate 25 MG TABCR PO SCH ×2 (09:00→21:00)
[2024-12-11] MEDS ORDERED: NS 1,000 ML IV ONE (11:00)
[2024-12-11 11:59] VITALS: BP 119/95
[2024-12-11] MEDS ORDERED: OLANZapine 5 MG Tab PO PRN (12:15)
[2024-12-11] MEDS ORDERED: Mag Sulfate 1 GM/D5% 100ML 100 ML IV STA (12:56)
[2024-12-11] MEDS ORDERED: NS 1,000 ML IV SCH (13:05)
--- NOTE | 2024-12-11 16:22 | NUR ---
END OF SHIFT SUMMARY: PT ALERT X2-3 WITH SOME AGITATION AND CONFUSION NOTED TODAY. NEW ORDER FOR ZYPREXA OBTAINED AND FIRST DOSE GIVEN WITH GOOD RESULTS. PT WITH IV FLUIDS AT 50/HR PER ORDER AND NO ISSUES OR CONCERNS. PT HAS REFUSED CARES TODAY AND BECAME VERY VERBAL WITH SITTER AND CERTIFIED ALCOHOL AND DRUG COUNSELOR. THIS RN IS ALLOWING PT TO SLEEP DUE TO BEHAVIOR. PT WITH ITCHING TO LEFT FLANK AND LOTION BEING APPLIED. SITTER STILL NEEDED; CALL LIGHT WITHIN REACH AND BED IN LOWEST POSITION.
[2024-12-11 17:03] VITALS: BP 103/87
[2024-12-12] MEDS ORDERED: DiphenhydrAMINE HCl 50 MG Cap PO ONE (04:00)
[2024-12-12] MEDS ORDERED: DiphenhydrAMINE HCl 50 MG Cap ONE (04:40)
[2024-12-12 04:41] VITALS: BP 128/97
[2024-12-12 05:29] LABS: CORTISOL,U FREE - RATIO TO CRT 7.93 ug/g CRT; CREATININE,URINE - PER VOLUME 140 mg/dL; HOURS COLLECTED Not Provided hr; TOTAL VOLUME Not Provided mL
--- NOTE | 2024-12-12 05:36 | NUR ---
SHIFT SUMMARY ADMITTED FOR ACUTE RENAL FAILURE . PT HAS LEA CATH PLACED. PT CAN BE VERBALLY THREATENING TO STAFF. PT HAS SITTER 1:1. PT IS ALERT AND ORIENTED TIMES 3. BED IS IN LOW POSITION, CALL LIGHT IS WITHIN REACH, AND RAILS ARE TIMES 2.
[2024-12-12 07:13] VITALS: BP 120/81
[2024-12-12] MEDS ORDERED: Potassium Chloride 10 Meq Tablet SA PO SCH (09:00)
[2024-12-12] MEDS ORDERED: Furosemide 40 MG Tab PO SCH (09:00)
[2024-12-12 09:09] LABS: Hematocrit 35.9 % (37.0-53.0); Hemoglobin 11.6 g/dL (13.5-17.5)
[2024-12-12 09:28] LABS: Albumin, Blood 2.1 g/dL (3.4-5.0); Anion Gap 8 mmol/L (3-11); Blood Urea Nitrogen 54 mg/dL (8-24); CO2, Blood 31 mmol/L (21-32); Calcium, Blood 9.4 mg/dL (8.5-10.1); Chloride, Blood 101 mmol/L (98-108); Glomerular Filtration Rate 36 (60-); Glucose, Blood 100 mg/dL (70-99); Magnesium, Blood 1.7 mg/dL (1.6-2.4); Phosphorus, Blood 2.6 mg/dL (2.5-4.9); Potassium, Blood 3.2 mmol/L (3.5-5.5); Sodium, Blood 137 mmol/L (136-145)
[2024-12-12] MEDS ORDERED: Mag Sulfate 1 GM/D5% 100ML 100 ML IV STA (09:44)
[2024-12-12] MEDS ORDERED: Potassium Chloride 10 Meq Tablet SA PO ONE (10:00)
[2024-12-12] MEDS ORDERED: Potassium Chloride 20 MEQ TabCR PO ONE (11:00)
[2024-12-12 15:09] VITALS: BP 113/80
--- NOTE | 2024-12-12 17:32 | NUR ---
SHIFT SUMMARY PT AOX2, SLEPT MOST OF THE SHIFT. THIS AM HE WAS AGITATED AND MEDICATED PER THE EMAR. PT TOLERATED IT WELL. 1:[address] WAS AT THE BS FOR A SHORT TIME. MEDICATED FOR PAIN PER EMAR. UP TO THE CHAIR A COUPLE TIMES TODAY, TOLERATED IT WELL. MENTATION APPEARS TO BE MORE CLEAR THIS EVENING. LEA IN PLACE AND DRAINING. 2 ASSIST IN THE BED, 1 ASSIST TO THE CHAIR. CALL LIGHT WITHIN REACH, BED LOCKED AND IN THE LOWEST POSITION. WILL REPORT TO ONCOMING NURSE.
[2024-12-12 19:21] VITALS: BP 116/81
[2024-12-13 04:26] VITALS: BP 139/102
--- NOTE | 2024-12-13 05:48 | NUR ---
SHIFT SUMMARY ADMITTED FOR ACUTE RENAL FAILURE . PT HAS LEA CATH PLACED. PT HAS SITTER 1:1. MANAGER VISUAL RESIDENT CONTACTED TO SEE ABOUT CHANGING OLANZAPIN TO Q4. BUT PT DID NOT NEED. PT ABLE TO FOLLOW DIRECTION AND RECEPTIVE TO CARE. PT APPEARED CALM AND NOT AGITATED LIKE HE PRESENTED THE PREVIOUS DAYS. PT IS ALERT AND ORIENTED TIMES 3. BED IS IN LOW POSITION, CALL LIGHT IS WITHIN REACH, AND RAILS ARE TIMES 2.
[2024-12-13] MEDS ORDERED: Vitamin B Cmplx/Vit C/Folic Ac 1 Tab PO SCH (06:00)
[2024-12-13 07:30] LABS: BASOPHILS ABSOLUTE AUTO 0.02 K/mm3 (0.00-0.23); BASOPHILS PERCENT AUTO 0 % (0-2); EOSINOPHILS ABSOLUTE AUTO 0.03 K/mm3 (0.00-0.68); EOSINOPHILS PERCENT AUTO 0 % (0-6); Hematocrit 39.4 % (37.0-53.0); Hemoglobin 13.1 g/dL (13.5-17.5); IMMATURE GRAN ABSOLUTE AUTO 0.08 K/mm3 (0.00-0.10); IMMATURE GRAN PERCENT AUTO 1 % (0-1); LYMPHOCYTES ABSOLUTE AUTO 1.27 K/mm3 (0.84-5.20); LYMPHOCYTES PERCENT AUTO 11 % (21-46); MONOCYTES ABSOLUTE AUTO 0.69 K/mm3 (0.16-1.47); MONOCYTES PERCENT AUTO 6 % (4-13); Mean Corpuscular HGB 31.3 pg (26.0-34.0); Mean Corpuscular HGB Conc 33.2 g/dL (31.5-36.5); Mean Corpuscular Volume 94 fL (80-100); NEUTROPHILS ABSOLUTE AUTO 9.72 K/mm3 (1.96-9.15); NEUTROPHILS PERCENT AUTO 82 % (41-73); Platelet Count 332 K/mm3 (150-400); RDW Coefficient Variation 18.7 % (11.7-14.2); RDW Standard Deviation 65.2 fL (35.1-46.3); Red Blood Cell Count 4.18 M/mm3 (4.30-5.90); White Blood Cell Count 11.81 K/mm3 (4.00-11.30)
[2024-12-13 07:33] VITALS: BP 111/99
[2024-12-13 07:39] LABS: Albumin, Blood 2.5 g/dL (3.4-5.0); Anion Gap 12 mmol/L (3-11); Blood Urea Nitrogen 55 mg/dL (8-24); Bun/Creatinine Ratio 26.2 (12.0-20.0); CO2, Blood 26 mmol/L (21-32); Calcium, Blood 9.5 mg/dL (8.5-10.1); Chloride, Blood 100 mmol/L (98-108); Glomerular Filtration Rate 34 (60-); Glucose, Blood 133 mg/dL (70-99); Phosphorus, Blood 2.5 mg/dL (2.5-4.9); Potassium, Blood 3.4 mmol/L (3.5-5.5); Sodium, Blood 135 mmol/L (136-145)
[2024-12-13] MEDS ORDERED: Potassium Chloride 10 Meq Tablet SA PO ONE ×3 (08:15→09:15)
[2024-12-13] MEDS ORDERED: Empagliflozin 10 MG TAB PO SCH (09:00)
[2024-12-13] MEDS ORDERED: OLANZapine 10 MG Vial IM PRN (12:30)
--- NOTE | 2024-12-13 13:03 | NUR ---
NOTE: 1:1 SITTER DISCONTINUED AT 1150 ON 12/13. PT CALLING AND MAKING HIS NEEDS KNOWN. LESS IRRITABLE AND AGGRESSIVE TOWARDS STAFF, APPEARING MORE PLEASANT AND COOPERATIVE. CHARGE NURSE MADE AWARE.
[2024-12-13 15:31] VITALS: BP 116/95
--- NOTE | 2024-12-13 17:18 | NUR ---
SHIFT SUMMARY PT AOX3, FORGETFUL AT TIMES BUT ABLE TO REDIRECT. MUCH IMPROVEMENT WITH MENTATION THIS SHIFT, THE SITTER WAS DISCONTINUED. HE IS TOLERATING IT WELL AND COOPERATING WITH CARE. LEA IN PLACE, PATENT AND DRAINING. PT CALLS BUT CAN FORGET AT TIMES WHEN WAKING FROM SLEEP. APPETITE IS GREAT. DRINKING WELL. HE IS A 1 ASSIST WITH THE FWW TO THE BR OR CHAIR. MEDICATED FOR PAIN PER THE EMAR. CALL LIGHT WITHIN REACH, BED LOCKED AND IN THE LOWEST POSITION. WILL REPORT TO ONCOMING NURSE.
[2024-12-13 19:26] VITALS: BP 133/98
[2024-12-13] MEDS ORDERED: OLANZapine 5 MG Tab PO SCH (21:00)
[2024-12-14 03:55] VITALS: BP 141/115
[2024-12-14 06:26] LABS: Albumin, Blood 2.3 g/dL (3.4-5.0); Anion Gap 12 mmol/L (3-11); Blood Urea Nitrogen 60 mg/dL (8-24); Bun/Creatinine Ratio 27.9 (12.0-20.0); CO2, Blood 26 mmol/L (21-32); Calcium, Blood 8.9 mg/dL (8.5-10.1); Chloride, Blood 101 mmol/L (98-108); Creatinine, Blood 2.15 mg/dL (0.60-1.20); Glomerular Filtration Rate 33 (60-); Glucose, Blood 92 mg/dL (70-99); Magnesium, Blood 1.5 mg/dL (1.6-2.4); Phosphorus, Blood 2.9 mg/dL (2.5-4.9); Potassium, Blood 3.5 mmol/L (3.5-5.5); Sodium, Blood 135 mmol/L (136-145)
[2024-12-14] MEDS ORDERED: Mag Sulfate 1 GM/D5% 100ML 100 ML IV STA (06:44)
[2024-12-14] MEDS ORDERED: Magnesium Citrate 300 ML BTL PO ONE (06:45)
[2024-12-14 07:39] VITALS: BP 134/95
[2024-12-14] MEDS ORDERED: Losartan Potassium 25 MG Tab PO SCH ×2 (09:00)
[2024-12-14] MEDS ORDERED: Furosemide 40 MG Tab PO SCH (12:55)
[2024-12-14 15:12] VITALS: BP 110/92
--- NOTE | 2024-12-14 16:19 | NUR ---
SHIFT SUMMARY: PATIENT A/O TO SELF, PLACED AND PERSON, CONFUSED TO DATES AND CURRENT SITUATIONS. PATIENT HAS FLAT AFFECT, PLEASANT AND COOPERATIVE c CARE THIS SHIFT. PATIENT REPORTS PAIN 6/10 TO LOWER ABDOMEN, MEDICATED FOR PAIN PER EMAR c GOOD EFFECT. PATIENT WORKS c PT TODAY, DID WELL. PATIENT UP IN RECLINER CHAIR FOR ABOUT 4 HRS. PATIENT MAGNESIUM 1.5 AM LAB RESULT, RECEIVED OT DOSE IV MAG PER ORDER. PATIENT HAS GOOD APPETITE, LEA FOR ACUTE RETENTION, PATENT DRAINING NAMAN COLOR URINE TO GRAVITY. PATIENT RECEIVED SCHEDULED MEDS PER EMAR. VITAL SIGNS REVIEWED. CHAIR ALARM ON FOR SAFETY. CALL LIGHT IN REACH.
[2024-12-14 20:09] VITALS: BP 113/97
--- NOTE | 2024-12-15 03:21 | NUR ---
SHIFT SUMMARY: AO TO SELF AND PLACE. REQUIRES 1PA WHILE AMBULATING. LEA IN PLACE, PATENT, DRAINING BY GRAVITY. PT DID COMPLAIN OF MODERATE ABDOMINAL PAIN, PERCOCET GIVEN PER eMAR. PT EXPRESSED NO OTHER CONCERNS AT THIS TIME. CALL LIGHT IS WIHTIN REACH. BED IS LOW AND LOCKED.
[2024-12-15 06:03] LABS: Hematocrit 36.4 % (37.0-53.0)
[2024-12-15 06:24] VITALS: BP 122/98
[2024-12-15 06:30] LABS: Albumin, Blood 2.4 g/dL (3.4-5.0); Anion Gap 10 mmol/L (3-11); Blood Urea Nitrogen 54 mg/dL (8-24); Bun/Creatinine Ratio 26.5 (12.0-20.0); CO2, Blood 28 mmol/L (21-32); Calcium, Blood 8.8 mg/dL (8.5-10.1); Chloride, Blood 99 mmol/L (98-108); Creatinine, Blood 2.04 mg/dL (0.60-1.20); Glomerular Filtration Rate 36 (60-); Glucose, Blood 106 mg/dL (70-99); Magnesium, Blood 1.7 mg/dL (1.6-2.4); Phosphorus, Blood 3.4 mg/dL (2.5-4.9); Potassium, Blood 3.2 mmol/L (3.5-5.5); Sodium, Blood 134 mmol/L (136-145)
[2024-12-15 07:26] VITALS: BP 112/93
[2024-12-15] MEDS ORDERED: Potassium Chloride 20 MEQ TabCR PO ONE (08:00)
[2024-12-15] MEDS ORDERED: Mag Sulfate 1 GM/D5% 100ML 100 ML IV STA (12:17)
[2024-12-15 15:12] VITALS: BP 123/88
--- NOTE | 2024-12-15 16:28 | NUR ---
SHIFT SUMMARY: PATIENT HAS HAD NO CHANGES THIS SHIFT. PATIENT CONTINUES TO BE A/O TO SELF, PLACED AND PERSON, STILL CONFUSED TO DATES AND CURRENT SITUATION. PATIENT DOES NOT USES CALL LIGHT, BUT EASILY REDIRECTABLE, PLEASANT AND COOPERATIVE c CARE THIS SHIFT. PATIENT K 3.2 AM LAB RESULT, RECEIVED OT DOSE 40 MEQ PO K-DUR AND OT DOSE MAG SULFATE IV PER ORDER. PATIENT HAS GOOD APPETITE, LEA IN PLACED FOR ACUTE RETENTION, PATENT DRAINING NAMAN COLOR URINE TO GRAVITY. PATIENT SAT UP IN THE RECLINER CHAIR AND RESTING IN BED ON/OFF T/O SHIFT. PATIENT RECEIVED SCHEDULED MEDS PER EMAR. VITAL SIGNS REVIEWED. CHAIR/BED ALARM ON FOR SAFETY. CALL LIGHT IN REACH.
--- NOTE | 2024-12-16 02:40 | NUR ---
SHIFT SUMMARY: AOX4. PT IS CALM & COOPERATIVE. PT DID COMPLAIN OF GENERALIZED PAIN AT THE BEGINNING OF THE SHIFT, MEDICATED PER eMAR. LEA IS STILL PATENT AND DRAINING BY GRAVITY. URINE IS STILL NAMAN, BUT PT HAVING ADEQUATE PO INTAKE. PT AMBULATES WITH SBA, MAINLY TO ASSIST WITH HIS LEA. PT EXPRESSED NO OTHER CONCERNS THIS SHIFT. CALL LIGHT IS WITHIN REACH. BED IS LOW AND LOCKED.
[2024-12-16 06:28] LABS: Hematocrit 37.7 % (37.0-53.0); Hemoglobin 12.4 g/dL (13.5-17.5)
[2024-12-16 06:48] LABS: Albumin, Blood 2.5 g/dL (3.4-5.0); Anion Gap 8 mmol/L (3-11); Blood Urea Nitrogen 55 mg/dL (8-24); Bun/Creatinine Ratio 27.4 (12.0-20.0); CO2, Blood 28 mmol/L (21-32); Chloride, Blood 100 mmol/L (98-108); Creatinine, Blood 2.01 mg/dL (0.60-1.20); Glomerular Filtration Rate 36 (60-); Glucose, Blood 108 mg/dL (70-99); Magnesium, Blood 1.9 mg/dL (1.6-2.4); Phosphorus, Blood 3.8 mg/dL (2.5-4.9); Potassium, Blood 3.3 mmol/L (3.5-5.5); Sodium, Blood 133 mmol/L (136-145)
[2024-12-16] MEDS ORDERED: Potassium Chloride 20 MEQ TabCR PO SCH (08:00)
[2024-12-16 08:07] VITALS: BP 125/95
[2024-12-16] MEDS ORDERED: Eplerenone 25 MG Tab PO SCH ×2 (09:00)
--- NOTE | 2024-12-16 16:34 | NUR ---
SHIFT SUMMARY: PATIENT HAS HAD NO NEW CHANGES THIS SHIFT. PATIENT MEDICATED X1 FOR GENERALIZED PAIN PER EMAR c GOOD EFFECT. PATIENT EATING AND DRINKING WELL, STILL HAS LEA FOR ACUTE RETENTION, PATENT DRAINING A TOTAL OF 1500 MLS YELLOW URINE OUTPUT THIS SHIFT. PATIENT UP IN THE CHAIR MULTIPLE TIMES AND RESTING IN BED ON/OFF T/O SHIFT. PATIENT RECEIVED SCHEDULED MEDS PER EMAR. VITAL SIGNS REVIEWED. BED/CHAIR ALARM ON FOR SAFETY. CALL LIGHT IN REACH.
[2024-12-16 16:41] VITALS: BP 106/84
[2024-12-16 20:29] VITALS: BP 133/97
--- NOTE | 2024-12-17 03:04 | NUR ---
SHIFT SUMMARY: AO TO SELF AND PLACE. PT HAD SOME GENERALIZED PAIN AT START OF SHIFT, PERCOCET GIVEN PER eMAR. PT SLEPT COMFORTABLY THROUGHOUT THE NIGHT. LEA PATENT, DRAINING BY GRAVITY. CALL LIGHT IS WITHIN REACH. BED IS LOW AND LOCKED.
[2024-12-17 05:26] VITALS: BP 111/78
[2024-12-17 07:00] LABS: BASOPHILS ABSOLUTE AUTO 0.01 K/mm3 (0.00-0.23); BASOPHILS PERCENT AUTO 0 % (0-2); EOSINOPHILS ABSOLUTE AUTO 0.02 K/mm3 (0.00-0.68); EOSINOPHILS PERCENT AUTO 0 % (0-6); Hematocrit 37.4 % (37.0-53.0); Hemoglobin 12.3 g/dL (13.5-17.5); IMMATURE GRAN ABSOLUTE AUTO 0.16 K/mm3 (0.00-0.10); IMMATURE GRAN PERCENT AUTO 1 % (0-1); LYMPHOCYTES PERCENT AUTO 11 % (21-46); MONOCYTES ABSOLUTE AUTO 0.87 K/mm3 (0.16-1.47); MONOCYTES PERCENT AUTO 6 % (4-13); Mean Corpuscular HGB 31.1 pg (26.0-34.0); Mean Corpuscular HGB Conc 32.9 g/dL (31.5-36.5); Mean Corpuscular Volume 95 fL (80-100); Mean Platelet Volume 9.3 fL (9.1-12.4); NEUTROPHILS ABSOLUTE AUTO 11.54 K/mm3 (1.96-9.15); NEUTROPHILS PERCENT AUTO 81 % (41-73); Platelet Count 221 K/mm3 (150-400); RDW Coefficient Variation 18.6 % (11.7-14.2); RDW Standard Deviation 64.6 fL (35.1-46.3); Red Blood Cell Count 3.95 M/mm3 (4.30-5.90)
[2024-12-17 07:14] LABS: Albumin, Blood 2.5 g/dL (3.4-5.0); Anion Gap 10 mmol/L (3-11); Blood Urea Nitrogen 48 mg/dL (8-24); Bun/Creatinine Ratio 23.1 (12.0-20.0); CO2, Blood 27 mmol/L (21-32); Chloride, Blood 103 mmol/L (98-108); Creatinine, Blood 2.08 mg/dL (0.60-1.20); Glomerular Filtration Rate 35 (60-); Glucose, Blood 88 mg/dL (70-99); Magnesium, Blood 1.9 mg/dL (1.6-2.4); Phosphorus, Blood 3.2 mg/dL (2.5-4.9); Potassium, Blood 3.6 mmol/L (3.5-5.5); Sodium, Blood 136 mmol/L (136-145)
[2024-12-17 08:03] VITALS: BP 114/93
[2024-12-17 15:25] VITALS: BP 111/85
--- NOTE | 2024-12-17 17:23 | NUR ---
1700- PT REFUSED OFFER FOR SHOWER MULTIPLE TIMES THIS SHIFT.
--- NOTE | 2024-12-17 18:34 | NUR ---
SUMMARY- AAOX4. SBA TO BATHROOM. GOOD APPETITE. OBEYS COMMANDS. NO ACUTE EVENTS THIS SHIFT. ON RA.
[2024-12-17 19:30] VITALS: BP 107/72
[2024-12-17] MEDS ORDERED: Miconazole Nitrate 2% 85 GM PWD TOP PRN (22:45)
[2024-12-18 04:19] VITALS: BP 117/85
--- NOTE | 2024-12-18 04:54 | NUR ---
PT IS A&OX4, MOVES ALL EXTREMETIES WELL, STEADY ON FEET, INDEPENDENT IN RM WITH BEING A STANDY ASSIST. PT C/O PAIN IN SHOULDER, BACK AND GROIN AREA. PAIN MEDICATION GIVEN RX. PT EDUCATED ON ETOH WITHDRAWL, PAIN MANAGEMENT AND MOBILITY. PT REPORTED FRUSTERATION WITH WAKING UP AT AROUND 1230 EACH MORNING. HE REPORTS THIS IS A CHRONIC ISSUE.
[2024-12-18 05:48] LABS: Hematocrit 38.8 % (37.0-53.0); Hemoglobin 12.9 g/dL (13.5-17.5)
[2024-12-18 06:12] LABS: Albumin, Blood 2.5 g/dL (3.4-5.0); Anion Gap 7 mmol/L (3-11); Blood Urea Nitrogen 48 mg/dL (8-24); Bun/Creatinine Ratio 21.7 (12.0-20.0); CO2, Blood 29 mmol/L (21-32); Calcium, Blood 8.6 mg/dL (8.5-10.1); Chloride, Blood 104 mmol/L (98-108); Creatinine, Blood 2.21 mg/dL (0.60-1.20); Glomerular Filtration Rate 32 (60-); Glucose, Blood 91 mg/dL (70-99); Magnesium, Blood 1.7 mg/dL (1.6-2.4); Phosphorus, Blood 4.2 mg/dL (2.5-4.9); Potassium, Blood 3.9 mmol/L (3.5-5.5); Sodium, Blood 136 mmol/L (136-145)
[2024-12-18 07:19] VITALS: BP 109/78
[2024-12-18] MEDS ORDERED: Potassium Chloride 10 Meq Tablet SA PO SCH (09:00)
[2024-12-18] MEDS ORDERED: Furosemide 40 MG Tab PO SCH (09:00)
[2024-12-18] MEDS ORDERED: PredniSONE 20 MG Tab PO SCH (10:00)
[2024-12-18 11:12] LABS: Percent Saturation 14.9 % (20.0-50.0)
[2024-12-18] MEDS ORDERED: EPLE25 PO (12:58)
[2024-12-18] MEDS ORDERED: LOSA25 PO (12:59)
[2024-12-18] MEDS ORDERED: OLAN5 PO (13:00)
[2024-12-18] MEDS ORDERED: NEPHRO VITAMIN0.8 MG PO (13:05)
[2024-12-18] MEDS ORDERED: Prednisone10 MG PO (13:05)
[2024-12-18] MEDS ORDERED: Tamsulosin HCl 0.4 MG Cap PO SCH (14:00)
[2024-12-18 15:50] VITALS: BP 108/97
--- NOTE | 2024-12-18 18:22 | NUR ---
DC-1810 PT LEFT IN STABLE CONDITION. PT BROUGHT DOWN TO [facility] FOR RIDE HOME. PT LEFT WITH ALL BELONGINGS.
[2024-12-25] MEDS ORDERED: BUME2 PO (22:57)
[2024-12-25] MEDS ORDERED: Potassium Chlo10 ME2 PO (22:58)
[2024-12-25] MEDS ORDERED: Isosorbide Mono30 MG PO (22:59)
[2024-12-25] MEDS ORDERED: CEFU500T30 PO (23:00)
[2024-12-25] MEDS ORDERED: VISBIOME 112.51 EACH PO (23:01)
== END 2024-12-18 18:12 | disposition home health service (06) | DRG 682 ==
LOC: ER 13:34 → PCU 17:48 → ERHOLD 17:48 → PCU 20:19 → MEDS 12-10 12:40
PROVIDERS: Family Medicine; Internal Medicine Nephrology; Student in an Organized Health Care Education/Training Program; ADMIT Internal Medicine
DX: N17.0 Acute kidney failure with tubular necrosis (principal); G92.8 Other toxic encephalopathy; E87.1 Hypo-osmolality and hyponatremia; I50.22 Chronic systolic (congestive) heart failure; I13.0 Hypertensive heart and chronic kidney disease with heart failure and stage 1 through stage 4 chronic kidney disease, or unspecified chronic kidney disease; L03.116 Cellulitis of left lower limb; Z66 Do not resuscitate; E87.6 Hypokalemia; D63.1 Anemia in chronic kidney disease; N18.4 Chronic kidney disease, stage 4 (severe); I48.91 Unspecified atrial fibrillation; E83.39 Other disorders of phosphorus metabolism; M10.341 Gout due to renal impairment, right hand; I95.89 Other hypotension; E86.0 Dehydration; E88.09 Other disorders of plasma-protein metabolism, not elsewhere classified; F10.20 Alcohol dependence, uncomplicated; D72.829 Elevated white blood cell count, unspecified; N25.81 Secondary hyperparathyroidism of renal origin; R94.31 Abnormal electrocardiogram [ECG] [EKG]; L03.011 Cellulitis of right finger; E83.42 Hypomagnesemia; L03.031 Cellulitis of right toe; E87.70 Fluid overload, unspecified; R60.0 Localized edema; Z60.2 Problems related to living alone; Z88.0 Allergy status to penicillin; Z79.01 Long term (current) use of anticoagulants
CPT/HCPCS: 36415; 51702; 71046; 73120; 76770; 80048; 80053; 80069; 80320; 81001; 82140; 82530; 82533; 82728; 82803; 83540; 83550; 83605; 83735; 83880; 84132; 84443; 84550; 85014; 85018; 85025; 87086; 93005; 93010; 96365; 96366; 97110; 97116; 97163; 97164; 97166; 97530; 97535; 99285-25; A9270; J3010; J3475; J3480; J7030; J7040; J7050; J7512

== ENCOUNTER 2024-12-18 21:41 | Emergency (ER) | payer OTHER ==
[~2024-12-18] VITALS: Ht 182.9 cm; Wt 95.2 kg
[~2024-12-18 21:41] MED LIST changes: +EPLE25 PO; +LOSA25 PO; +NEPHRO VITAMIN0.8 MG PO; +OLAN5 PO; +Prednisone10 MG PO; +SPIRONOLACTONE50 MG PO
[2024-12-18 22:24] VITALS: BP 144/69
[2024-12-25] MEDS ORDERED: Potassium Chlo10 ME2 PO (22:58)
== END 2024-12-18 23:37 | disposition left against medical advice (07) ==
LOC: ER 21:41
DX: F10.91 Alcohol use, unspecified, in remission (principal); Z59.89 Other problems related to housing and economic circumstances; Z79.2 Long term (current) use of antibiotics; Z79.01 Long term (current) use of anticoagulants; Z79.899 Other long term (current) drug therapy; I48.91 Unspecified atrial fibrillation; I12.9 Hypertensive chronic kidney disease with stage 1 through stage 4 chronic kidney disease, or unspecified chronic kidney disease; N18.30 Chronic kidney disease, stage 3 unspecified
CPT/HCPCS: 99284

== ENCOUNTER 2025-01-03 13:54 | Inpatient (IN) | payer OTHER ==
[~2025-01-03] VITALS: Ht 190.5 cm; Wt 101.2 kg
[~2025-01-03 13:54] MED LIST changes: +Potassium Chlo10 ME2 PO; +TAMS.4ER PO
[2025-01-03] MEDS ORDERED: HYDROmorphone HCl/Pf 1MG SYR IV ONE (14:00)
[2025-01-03] MEDS ORDERED: Ondansetron HCl 2 MG / ML 2ML Vial IV ONE (14:00)
[2025-01-03] MEDS ORDERED: Midazolam HCl 1MG / ML 2ML Vial IV ONE (14:00)
[2025-01-03 14:18] LABS: BASOPHILS ABSOLUTE AUTO 0.03 K/mm3 (0.00-0.23); BASOPHILS PERCENT AUTO 0 % (0-2); EOSINOPHILS ABSOLUTE AUTO 0.03 K/mm3 (0.00-0.68); EOSINOPHILS PERCENT AUTO 0 % (0-6); Hematocrit 34.6 % (37.0-53.0); Hemoglobin 11.3 g/dL (13.5-17.5); IMMATURE GRAN ABSOLUTE AUTO 0.24 K/mm3 (0.00-0.10); IMMATURE GRAN PERCENT AUTO 2 % (0-1); LYMPHOCYTES ABSOLUTE AUTO 1.13 K/mm3 (0.84-5.20); LYMPHOCYTES PERCENT AUTO 11 % (21-46); MONOCYTES ABSOLUTE AUTO 0.78 K/mm3 (0.16-1.47); MONOCYTES PERCENT AUTO 8 % (4-13); Mean Corpuscular HGB Conc 32.7 g/dL (31.5-36.5); Mean Corpuscular Volume 92 fL (80-100); NEUTROPHILS ABSOLUTE AUTO 7.67 K/mm3 (1.96-9.15); NEUTROPHILS PERCENT AUTO 78 % (41-73); NRBC ABSOLUTE 0.00 K/mm3 (0.00-0.02); NRBC Auto 0.0 /100 WBC (0.0-0.2); Platelet Count 275 K/mm3 (150-400); RDW Coefficient Variation 19.6 % (11.7-14.2); RDW Standard Deviation 64.9 fL (35.1-46.3)
[2025-01-03 14:40] LABS: Alanine Aminotransfer (ALT/SGP 34.0 U/L (12-78); Albumin, Blood 2.5 g/dL (3.4-5.0); Albumin/Globulin Ratio 0.7 (0.8-1.8); Anion Gap 9.0 mmol/L (3-11); Aspartate Aminotrans (AST/SGOT 32.0 U/L (12-37); Bilirubin, Total 0.9 mg/dL (0.1-1.0); Blood Urea Nitrogen 14.0 mg/dL (8-24); CO2, Blood 27.0 mmol/L (21-32); Calcium, Blood 8.1 mg/dL (8.5-10.1); Chloride, Blood 105.0 mmol/L (98-108); Creatinine, Blood 1.57 mg/dL (0.60-1.20); Ethanol (Alcohol), Blood, Med 116.0 mg/dL; Globulin, Blood 3.7 g/dL (2.2-4.0); Glucose, Blood 97.0 mg/dL (70-99); Potassium, Blood 3.6 mmol/L (3.5-5.5); Sodium, Blood 137.0 mmol/L (136-145); Total Protein, Blood 6.2 g/dL (6.4-8.2)
[2025-01-03] MEDS ORDERED: Metoprolol Tartrate 1 MG/ML 5 ML VIAL IV ONE ×2 (14:50→15:30)
[2025-01-03] MEDS ORDERED: HYDROmorphone HCl/Pf 1MG SYR IV PRN (16:30)
[2025-01-03] MEDS ORDERED: Metoprolol Tartrate 1 MG/ML 5 ML VIAL IV PRN (16:50)
[2025-01-03] MEDS ORDERED: NS 1,000 ML IV ONE (17:21)
[2025-01-03] MEDS ORDERED: LORazepam 2 MG/ML 1ML Injection IV PRN ×2 (17:40→17:45)
[2025-01-03 18:42] VITALS: BP 114/86
[2025-01-03] MEDS ORDERED: NS 250 ML IV PRN (18:45)
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
--- NOTE | 2025-01-03 19:26 | NUR ---
ASSUMPTION OF CARE PT SITTING IN BED WITH HOB ELEVATED,RESTLESS AND MOANING.PT STATES THAT THE PAIN MEDICINE HE RECEIVED IS NOT WORKING.THIS NURSE INFORMED PT THAT WILL LOOK AT HIS CHART AND SEE WHAT ELSE HE CAN GET.BEDSIDE REPORT COMPLETED,PLAN OF CARE REVIEWED.PT DENIES FURTHER NEEDS.CALL LIGHT AND PT'S ITEMS WITHIN REACH.MONITORING ONGOING PER CARE PLAN.
[2025-01-03 19:41] VITALS: BP 95/66
[2025-01-04] VITALS (9 sets, daily range): BP systolic 85–146; BP diastolic 63–129
[2025-01-04 02:20] LABS: U Amphetamine Screen Not Detected; U Barbituate Screen Not Detected; U Benzodiazapine Screen DETECTED; U Buprenorphine Screen Not Detected; U Cannabinoids Screen Not Detected; U Cocaine Screen Not Detected; U Methadone Screen Not Detected; U Methamphetamine Screen Not Detected; U Opiates Screen DETECTED; U Oxycodone Screen DETECTED; U Phencyclidine Screen Not Detected
[2025-01-04 04:06] LABS: BASOPHILS ABSOLUTE AUTO 0.03 K/mm3 (0.00-0.23); BASOPHILS PERCENT AUTO 0 % (0-2); EOSINOPHILS ABSOLUTE AUTO 0.05 K/mm3 (0.00-0.68); EOSINOPHILS PERCENT AUTO 0 % (0-6); Hematocrit 38.9 % (37.0-53.0); Hemoglobin 12.1 g/dL (13.5-17.5); IMMATURE GRAN ABSOLUTE AUTO 0.13 K/mm3 (0.00-0.10); IMMATURE GRAN PERCENT AUTO 1 % (0-1); LYMPHOCYTES ABSOLUTE AUTO 1.07 K/mm3 (0.84-5.20); LYMPHOCYTES PERCENT AUTO 9 % (21-46); MONOCYTES ABSOLUTE AUTO 1.00 K/mm3 (0.16-1.47); MONOCYTES PERCENT AUTO 9 % (4-13); Mean Corpuscular HGB Conc 31.1 g/dL (31.5-36.5); Mean Corpuscular Volume 93 fL (80-100); NEUTROPHILS ABSOLUTE AUTO 9.05 K/mm3 (1.96-9.15); NEUTROPHILS PERCENT AUTO 80 % (41-73); NRBC ABSOLUTE 0.00 K/mm3 (0.00-0.02); NRBC Auto 0.0 /100 WBC (0.0-0.2); Platelet Count 289 K/mm3 (150-400); RDW Coefficient Variation 19.7 % (11.7-14.2); RDW Standard Deviation 66.5 fL (35.1-46.3)
[2025-01-04 04:24] LABS: Alanine Aminotransfer (ALT/SGP 38.0 U/L (12-78); Albumin, Blood 2.6 g/dL (3.4-5.0); Albumin/Globulin Ratio 0.6 (0.8-1.8); Anion Gap 6.0 mmol/L (3-11); Aspartate Aminotrans (AST/SGOT 53.0 U/L (12-37); Bilirubin, Total 1.5 mg/dL (0.1-1.0); Blood Urea Nitrogen 16.0 mg/dL (8-24); CO2, Blood 30.0 mmol/L (21-32); Calcium, Blood 8.5 mg/dL (8.5-10.1); Chloride, Blood 101.0 mmol/L (98-108); Creatinine, Blood 1.6 mg/dL (0.60-1.20); Globulin, Blood 4.2 g/dL (2.2-4.0); Glucose, Blood 123.0 mg/dL (70-99); Potassium, Blood 4.0 mmol/L (3.5-5.5); Sodium, Blood 133.0 mmol/L (136-145); Total Protein, Blood 6.8 g/dL (6.4-8.2)
--- NOTE | 2025-01-04 06:34 | NUR ---
PT MONITORED THROUGH THE SHIFT,PT HAS BEEN RESTLESS THROUGHOUT THE NIGHT,MOANING AND GROANING.PRN PAIN MEDICINE GIVEN ORDERED.PT HAS BEEN IN/OUT OF BED/CHAIR,COMPLAINING OF DISCOMFORT EITHER IN CHAIR OR BED.PT ABLE TO MOVE BUT OCCASIONALLY ENDORSES HELPLESSNESS ,HOPELESSNESS DUE TO INABILITY TO TRANSFER OR TURN IN BED.WITH ENCOURAGEMENT,PT HAS BEEN ABLE TO MOVE SELF IN BED AND TRANSFER TO CHAIR WITH MINIMAL ASSISTANCE.MOOD HAS BEEN LABILE THROUGHOUT THE NIGHT,REQUIRING STAFF IN THE ROOM CONSTANTLY TO REDIRECT HIM.PT GIVEN LIBRIUM 5OMG X1 PER CIWA PROTOCOL.PT SITTING AT THE EDGE OF THE BED AT THIS TIME,PRN PAIN MED.SEIZURE PADS IN PLACE,BED ALARM ACTIVATED.PT DENIES FURTHER NEEDS.CALL LIGHT AND PT'S ITEMS WITHIN REACH.MONOTORING ONGOING PER CARE PLAN.
--- NOTE | 2025-01-04 09:31 | NUR ---
md tami Titus in to see the patient and discussing [facility] goals for plan of care to keep the patient out of the hospital. When discussing patient life expectancy in relation to heart failure patient was not responsive to the conversation. Discussing patient pain control and methods that are and aren;t working. Plan to give a one time dose of lospressor 12.5mg and monitor patient heart rate and blood pressure. Tele afib 116 at this time. patient verbalized understanding of plan
--- NOTE | 2025-01-04 10:04 | NUR ---
am note this rn assumed care at 0700. vital signs stable. tele afib 110s. patient is alert and oriented x4. 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 patient right eye is brisk and 2mm in size. patient reports pain in lower back and medicated per emar. see emar for detials. patient denies chest pain or shortness of breath. patient has laceration on top of head, skin tear on right sabianist, abrasian on back of head and skin tear on right elbow and scabs on lower extremities. pictures are in chart. see shift assessment for further detials.
--- NOTE | 2025-01-04 18:22 | NUR ---
shift summary patient neuro remains unchanged. vital signs stable. tele afib 110s. patient has sat at the edge of the bed throughout the day and medicated for pain control as needed. patient needs frequent reminders to not call out and use call light so staff is able to know when he needs assistance. bed alarm is on. no acute changes. plan remains up to date
[2025-01-05] VITALS (30 sets, daily range): BP systolic 70–145; BP diastolic 51–125
[2025-01-05 04:54] LABS: BASOPHILS ABSOLUTE AUTO 0.04 K/mm3 (0.00-0.23); BASOPHILS PERCENT AUTO 0 % (0-2); EOSINOPHILS ABSOLUTE AUTO 0.14 K/mm3 (0.00-0.68); EOSINOPHILS PERCENT AUTO 1 % (0-6); Hematocrit 36.5 % (37.0-53.0); Hemoglobin 11.6 g/dL (13.5-17.5); IMMATURE GRAN ABSOLUTE AUTO 0.12 K/mm3 (0.00-0.10); IMMATURE GRAN PERCENT AUTO 1 % (0-1); LYMPHOCYTES ABSOLUTE AUTO 1.04 K/mm3 (0.84-5.20); LYMPHOCYTES PERCENT AUTO 9 % (21-46); MONOCYTES ABSOLUTE AUTO 0.78 K/mm3 (0.16-1.47); MONOCYTES PERCENT AUTO 6 % (4-13); Mean Corpuscular HGB Conc 31.8 g/dL (31.5-36.5); Mean Corpuscular Volume 94 fL (80-100); NEUTROPHILS ABSOLUTE AUTO 10.12 K/mm3 (1.96-9.15); NEUTROPHILS PERCENT AUTO 83 % (41-73); NRBC ABSOLUTE 0.00 K/mm3 (0.00-0.02); NRBC Auto 0.0 /100 WBC (0.0-0.2); Platelet Count 300 K/mm3 (150-400); RDW Coefficient Variation 19.5 % (11.7-14.2); RDW Standard Deviation 67.4 fL (35.1-46.3)
[2025-01-05 05:25] LABS: Alanine Aminotransfer (ALT/SGP 34.0 U/L (12-78); Albumin, Blood 2.4 g/dL (3.4-5.0); Albumin/Globulin Ratio 0.6 (0.8-1.8); Anion Gap 7.0 mmol/L (3-11); Aspartate Aminotrans (AST/SGOT 37.0 U/L (12-37); Bilirubin, Total 1.4 mg/dL (0.1-1.0); Blood Urea Nitrogen 21.0 mg/dL (8-24); CO2, Blood 28.0 mmol/L (21-32); Calcium, Blood 8.8 mg/dL (8.5-10.1); Chloride, Blood 101.0 mmol/L (98-108); Creatinine, Blood 1.84 mg/dL (0.60-1.20); Globulin, Blood 4.0 g/dL (2.2-4.0); Glucose, Blood 105.0 mg/dL (70-99); Potassium, Blood 4.3 mmol/L (3.5-5.5); Sodium, Blood 132.0 mmol/L (136-145); Total Protein, Blood 6.4 g/dL (6.4-8.2)
--- NOTE | 2025-01-05 06:05 | NUR ---
SHIFT SUMMARY: PT A&OX4 AT START OF SHIFT. PT C/O OF 9/10 KNEE AND BACK PAIN. MEDICATED PER EMAR. DESAT TO 80S WHILE SLEEPING. REQUIRED 6L NC TO MAINTAIN >92% SP02 BUT TITRATED DOWN TO 2L THROUGHOUT SHIFT. AFIB 100S-120S. BECAME INCREASINGLY ANXIOUS, AGITATED, AND CONFUSED THROUGHOUT NIGHT. CIWA SCORE >8. MEDICATED PER EMAR. OCCASIONALLY TRIED TO GET OUT OF BED. FREQUENTLY REMINDED PATIENT TO STAY IN BED AND TO CALL BEFORE GETTING UP. USES URINAL AT BEDSIDE. BED ALARM ON AND LOW AND LOCKED. PT TRANSFERRED TO ROOM CLOSER TO NURSES STATION FOR OBSERVATION AND SAFETY. CALL LIGHT IS WITHIN REACH. WILL CONTINUE PLAN OF CARE TILL REPORT GIVEN TO NOC NURSE.
--- NOTE | 2025-01-05 08:46 | NUR ---
REFUSING MEDS DISCUSSED MORNING MEDICATIONS WITH THE PATIENT, WHEN THIS RN HANDED HIM THE PILL CUP AND TOLD HIM WHAT ALL THE PILLS WERE HE LOOKED AT THEM STATING THAT WAS "WAY MORE THAN I USUALLY TAKE". HE THEN STATED HE WOULD JUST WAIT AND TAKE HIS MEDS AT HOME TOMORROW, ATTEMPTED TO EDUCATE PATIENT ON THE IMPORTANCE OF TAKING HIS MEDICATIONS, ESPECIALLY HIS HEART MEDICATIONS WITH HIS MEDICAL HX AND HIS CURRENT BP. PT ASKED WHO PRESCRIBED HIS MEDS AND THIS RN TOLD HIM WHO HIS MD WAS FOR TODAY AND THAT HE WOULD BE MAKING ROUNDS. PT THEN STATED HE WOULD WAIT TO TALK TO THE MD BEFORE TAKING HIS MEDICATIONS THIS AM. PT NOT IN ANY ACUTE DISTRESS, BP ELEVATED, HE IS A LITTLE CONFUSED, CIWA SCORE OF 12 (SEE ASSESSMENT). ATTEMPTED TO ADD LIBRIUM AND ATIVA PER ALCOHOL WITHDRAWAL ORDER, PT CONTINUES TO REFUSE ALL MEDICATIONS. WILL NOTIFY MD.
--- NOTE | 2025-01-05 12:37 | NUR ---
CIWA SCORE/LOW BP PT FOUND TO BE PULLING ON HIS LINES, STATING THERE ARE THINGS CRAWLING OVER THE FLOOR, CIWA PERFROMED BY BREAK RN WITH A SCORE OF 15, MEDICATED PER EMAR. 1200 VITALS SHOW LOW BP (SEE VITALS), CALLED MD TO DISCUSS CIWA AND BP, APPROVAL TO USE A 250ML BAG OF NS FOR A MINI BOLUS TO PERK UP HIS BP, WILL RECHECK BP AFTER BOLUS AND UPDATE MD.
--- NOTE | 2025-01-05 13:51 | NUR ---
HYPOTENSION DISCOSSED ONGOING HYPOTENSION WITH MD, HE REQUESTED A SECOND 250ML BOLUS WITH A RECHECK ON HIS PRESSURES AT 30 MINUTES POST BOLUS. WILL OBTAIN Q15 MIN BP X4 AND UPDATE AFTER 30 MINTUES
[2025-01-05] MEDS ORDERED: Midazolam HCl 1MG / ML 2ML Vial IV PRN (16:20)
[2025-01-05] MEDS ORDERED: Midazolam HCl 1MG / ML 2ML Vial ONE (16:21)
[2025-01-05] MEDS ORDERED: Magnesium Sulf 2 GM/Water 50ML 50 ML IV ONE (16:55)
--- NOTE | 2025-01-05 17:04 | NUR ---
TRANSFER TO ICU4 PT REMAINED HYPOTENSIVE AFTER SECOND 250ML BOLUS, PT WAKES TO VERBAL STIMULI BUT BARELY ROUSES, ALL OTHER VITALS WNL. GRINDER AND HONER OPERATOR [employer] DISCUSSED WITH ICU CHARGE WHO CAME AND EVALUATED THE PATIENT. EVALUATION DISCUSSED WITH MD AND DECISION TO TRANSFER WAS MADE, REPORT CALLED TO [employer] AND PATIENT BROUGHT OVER TO ICU AT APPROX 1435.
--- NOTE | 2025-01-05 19:49 | NUR ---
PT ARRIVED TO UNIT APPROX 1500. NEURO: CIWA 23. PT REDIRECTABLE AT FIRST. TELEPHONE ORDERS RECIEVED FOR IV MEDICATIONS FOR AGITATION PT UNABLE TO TAKE PO AT THAT TIME DUE TO MENTATION. US IV PLACED TO RUE. HYPOTENSION PERSISTENT BUT IMPROVED MAP >65. SBP 80-100 ON AVERAGE. AFIB HR 80S BUT WHEN AGITATED INCREASED TO 120S-130S, THIS NO RESOVLED. +VISUAL HALLUCINATION, +TACTILE AND AUDIOLOGICAL HALLUCINATIONS. PT YELLING OUT FOR HIS FATHER AT ONE POINT. IV VERSED MINIMAL EFFECT. STARTED PRECEDEX, CURRENTLY ON 1.5MCG/KG/HR. PT AWAKE RASS 0 WHEN ARRIVED AT END OF SHIFT RASS -2. CARDIAC: AFIB, HYPOTENSIVE. LEVO PRIMED AND READY PRN MAP >65. +MURMUR, L JVD MILD. PULM: BIBASILAR CRACKLES. INCLUDED RML. +COUGH-HARSH. O2 WHILE AWAKE AT 2LPM SATS >95%. O2 NEEDS INCREASED WHEN ASLEEP. APNEA PRESENT WHILE SLEEPING AND BREATHING QUITE SHALLOW. END TIDAL PLACED TO MONITOR. RT CALLED TO ASSIST. PT CIWA IMPROVED BY END OF SHIFT. CIWA 15
[2025-01-06] VITALS (40 sets, daily range): BP systolic 83–101; BP diastolic 60–83
[2025-01-06 03:38] LABS: BASOPHILS ABSOLUTE AUTO 0.03 K/mm3 (0.00-0.23); BASOPHILS PERCENT AUTO 0 % (0-2); EOSINOPHILS ABSOLUTE AUTO 0.11 K/mm3 (0.00-0.68); EOSINOPHILS PERCENT AUTO 1 % (0-6); Hematocrit 32.2 % (37.0-53.0); Hemoglobin 9.8 g/dL (13.5-17.5); IMMATURE GRAN ABSOLUTE AUTO 0.10 K/mm3 (0.00-0.10); IMMATURE GRAN PERCENT AUTO 1 % (0-1); LYMPHOCYTES ABSOLUTE AUTO 0.82 K/mm3 (0.84-5.20); LYMPHOCYTES PERCENT AUTO 10 % (21-46); MONOCYTES ABSOLUTE AUTO 0.75 K/mm3 (0.16-1.47); MONOCYTES PERCENT AUTO 9 % (4-13); Mean Corpuscular HGB Conc 30.4 g/dL (31.5-36.5); Mean Corpuscular Volume 95 fL (80-100); NEUTROPHILS ABSOLUTE AUTO 6.68 K/mm3 (1.96-9.15); NEUTROPHILS PERCENT AUTO 79 % (41-73); NRBC ABSOLUTE 0.00 K/mm3 (0.00-0.02); NRBC Auto 0.0 /100 WBC (0.0-0.2); Platelet Count 251 K/mm3 (150-400); RDW Coefficient Variation 19.5 % (11.7-14.2); RDW Standard Deviation 67.1 fL (35.1-46.3)
[2025-01-06 04:01] LABS: Alanine Aminotransfer (ALT/SGP 26.0 U/L (12-78); Albumin, Blood 2.1 g/dL (3.4-5.0); Albumin/Globulin Ratio 0.5 (0.8-1.8); Anion Gap 8.0 mmol/L (3-11); Aspartate Aminotrans (AST/SGOT 26.0 U/L (12-37); Bilirubin, Total 0.9 mg/dL (0.1-1.0); Blood Urea Nitrogen 25.0 mg/dL (8-24); CO2, Blood 29.0 mmol/L (21-32); Calcium, Blood 8.5 mg/dL (8.5-10.1); Chloride, Blood 103.0 mmol/L (98-108); Creatinine, Blood 2.18 mg/dL (0.60-1.20); Globulin, Blood 4.0 g/dL (2.2-4.0); Glucose, Blood 112.0 mg/dL (70-99); Magnesium, Blood 2.2 mg/dL (1.6-2.4); Phosphorus, Blood 4.0 mg/dL (2.5-4.9); Potassium, Blood 4.1 mmol/L (3.5-5.5); Sodium, Blood 136.0 mmol/L (136-145); Total Protein, Blood 6.1 g/dL (6.4-8.2)
--- NOTE | 2025-01-06 06:47 | NUR ---
SHIFT SUMMARY PT HAS TOLERATED NIGHT WELL WITH NO SIGNIFICANT CHANGES IN STATUS OR EVENTS. PT WAS ABLE TO BE TITRATED DOWN ON PRECEDEX AND IS RESPONSIVE TO PAINFUL STIMULI AT THIS TIME. PT HAS REMAINED RESTRAINED OVERNIGHT DUE TO RISK OF PULLING LINES AND TUBES. PTS VITALS HAVE BEEN STABLE. BLOOD PRESSURE AT BEGINNING OF SHIFT WAS SOFT. PT WAS STARTED ON LEVOPHED ORDERED. AFTER TITRATING PRECEDEX DOWN, PT WAS ABLE TO COME OFF OF LEVOPHED DRIP AND HAS BEEN OFF FOR MAJORITY OF NIGHT. PT APPEARS TO BE RESTING COMFORTABLY IN ROOM. WILL CONTINUE TO MONITOR UNTIL REPORT PASSED TO DAY SHIFT TEAM.
[2025-01-06] MEDS ORDERED: Enoxaparin 120 MG/0.8 ML SYR SC SCH (10:00)
[2025-01-07] VITALS (71 sets, daily range): BP systolic 83–132; BP diastolic 52–103
[2025-01-07 03:51] LABS: BASOPHILS ABSOLUTE AUTO 0.03 K/mm3 (0.00-0.23); BASOPHILS PERCENT AUTO 0 % (0-2); EOSINOPHILS ABSOLUTE AUTO 0.09 K/mm3 (0.00-0.68); EOSINOPHILS PERCENT AUTO 1 % (0-6); Hematocrit 31.6 % (37.0-53.0); Hemoglobin 9.7 g/dL (13.5-17.5); IMMATURE GRAN ABSOLUTE AUTO 0.12 K/mm3 (0.00-0.10); IMMATURE GRAN PERCENT AUTO 2 % (0-1); LYMPHOCYTES ABSOLUTE AUTO 0.79 K/mm3 (0.84-5.20); LYMPHOCYTES PERCENT AUTO 11 % (21-46); MONOCYTES ABSOLUTE AUTO 0.68 K/mm3 (0.16-1.47); MONOCYTES PERCENT AUTO 9 % (4-13); Mean Corpuscular HGB Conc 30.7 g/dL (31.5-36.5); Mean Corpuscular Volume 94 fL (80-100); NEUTROPHILS ABSOLUTE AUTO 5.51 K/mm3 (1.96-9.15); NEUTROPHILS PERCENT AUTO 76 % (41-73); NRBC ABSOLUTE 0.00 K/mm3 (0.00-0.02); NRBC Auto 0.0 /100 WBC (0.0-0.2); Platelet Count 273 K/mm3 (150-400); RDW Coefficient Variation 19.2 % (11.7-14.2); RDW Standard Deviation 67.2 fL (35.1-46.3)
[2025-01-07 04:12] LABS: Alanine Aminotransfer (ALT/SGP 20.0 U/L (12-78); Albumin, Blood 2.0 g/dL (3.4-5.0); Albumin/Globulin Ratio 0.5 (0.8-1.8); Anion Gap 9.0 mmol/L (3-11); Aspartate Aminotrans (AST/SGOT 19.0 U/L (12-37); Bilirubin, Total 0.7 mg/dL (0.1-1.0); Blood Urea Nitrogen 24.0 mg/dL (8-24); CO2, Blood 28.0 mmol/L (21-32); Calcium, Blood 8.4 mg/dL (8.5-10.1); Chloride, Blood 106.0 mmol/L (98-108); Creatinine, Blood 1.86 mg/dL (0.60-1.20); Globulin, Blood 3.8 g/dL (2.2-4.0); Glucose, Blood 103.0 mg/dL (70-99); Potassium, Blood 4.2 mmol/L (3.5-5.5); Sodium, Blood 139.0 mmol/L (136-145); Total Protein, Blood 5.8 g/dL (6.4-8.2)
--- NOTE | 2025-01-07 06:03 | NUR ---
SHIFT SUMMARY PT HAS TOLERATED SHIFT OVERNIGHT WITH NO SIGNIFICANT EVENTS. PT WOKE AROUND 0245 FROM SLEEP WITH HALLUCINATIONS, CALLING OUT FROM BED, AND ATTEMPTING TO GET OUT OF RESTRAINTS. AT THAT TIME, SEDATING MEDICATIONS WERE INCREASED, AND PT WAS GIVEN MEDICATION FOR SEVERE AGITATION. PT WAS ABLE TO CALM AND SLEPT FOR REMAINDER OF NIGHT. PT DID BECOME AGITATED AGAIN AROUND 0545 AND WAS GIVEN MEDICATIONS. PT IS NOW RESTING IN BED. WILL CONTINUE TO MONITOR UNTIL REPORT PASSED TO DAY SHIFT TEAM.
--- NOTE | 2025-01-07 07:32 | NUR ---
PT SLEEPING DURING BSR, OXIMASK AT 10L WITH 100%, HR 80'S AFIB. PRECEDEX AT 1.2. PT MOANING WITH DISTURBANCE, PULLING WRINKLES OUT OF SHEETS, FIXING ARM PILLOW, ETC. WILL TITRATE DOWN ACCORDINGLY.
--- NOTE | 2025-01-07 08:36 | NUR ---
PT RESTLESS, ANXIOUS. BHAKTA PLACED UNDER PATIENT, REPOSITIONED, ELBOW HAD BANDAID PLACED. C/O PAIN BEING ON RIGHT SIDE, MEDICATED WITH DILAUDID, CONTINUES HOLLERING OUT, WANTS THE DOOR OPEN. ATTEMPTS TO REDIRECT UNSUCCESSFUL. SCD'S PLACED, LOVENOX GIVEN, ORAL CARE COMPLETED. PT ATTEMPTS TO PULL OUT CATHETER, COUGH BETTER. CONTINUES INTERMITTENT HOLLERING.
--- NOTE | 2025-01-07 12:11 | NUR ---
LD HAS BEEN RESTING QUIETLY FOR THE LAST HOUR OR SO, HIS RESTRAINTS HAVE BEEN REMOVED, HE IS ON CPAP AND HIS PRECEDEX IS DOWN TO 0.8MCG/KG.
--- NOTE | 2025-01-07 18:49 | NUR ---
PT SLEPT FOR A GOOD PORTION OF THE AFTERNOON, WHEN AROUSED, AGITATED, PINCHING AND GRABBING AT STAFF. TOOK OFF HIS CPAP. MEDS GIVEN FOR CIWA AND FOR PAIN. PT REPOSITIONED OFTEN T/O SHIFT. ON OXYMASK, PRECEDEX CONTINUES AT 0.8MCG/KG. COUGH STRONG, ATTEMPTS AT GOOD ORAL CARE MADE T/O THE SHIFT AND PT CONTINUES TO FIGHT AND BITE ON SUCTION TUBING AND TOOTHBRUSH. U.O 30ML/HR.
--- NOTE | 2025-01-07 19:24 | NUR ---
ASSUMPTION OF CARE REPORT RECIEVED FROM DAY SHIFT NURSE. PT APPEARS TO BE RESTING COMFORTABLY IN ROOM AT THIS TIME. MEDICATION DOSE VERIFIED. VITALS WITHIN NORMAL LIMITS. PT ON OXYGEN BY OXYMASK 7LPM. WILL CONTINUE TO MONITOR.
--- NOTE | 2025-01-07 20:48 | NUR ---
SHIFT EVENT ATTEMPTED TO PUT PT ON CPAP WITH RESPIRATORY THERAPY. PT WAS TAKEN OFF OF RESTRAINTS TEMPORARILY IN ORDER TO TEST HIS TOLERANCE TO CPAP. PT IMMEDIATELY WOKE UP AFTER APPLICATION OF MASK AND CONTINUED TO TRY AND TAKE MASK OFF FACE. ATTEMPTED REDIRECTION AND DISTRACTION, WELL INCREASING MEDICATION DOSAGE TO NO EFFECT. PT CONTINUES TO NOT TOLERATE CPAP WHILE THIS NURSE IS AT BEDSIDE. ISSUE DISCUSSED WITH CHARGE NURSE. DECISION MADE TO CALL FOR SITTER TO ASSIST WITH MONITORING PT WHILE PT ON CPAP. ADDITIONAL MEDICATIONS WERE GIVEN PRIOR TO SITTER ARRIVAL FOR AGITATION. PT CURRENTLY APPEARS TO BE RESTING COMFORTABLY IN ROOM. WILL CONTINUE TO MONITOR.
[2025-01-08] VITALS (61 sets, daily range): BP systolic 94–153; BP diastolic 65–108
[2025-01-08] MEDS ORDERED: Ipratropium/Albuterol SulF 2.5-0.5MG/3 ML Amp INH PRN (00:45)
[2025-01-08 03:33] LABS: BASOPHILS ABSOLUTE AUTO 0.05 K/mm3 (0.00-0.23); BASOPHILS PERCENT AUTO 1 % (0-2); EOSINOPHILS ABSOLUTE AUTO 0.07 K/mm3 (0.00-0.68); EOSINOPHILS PERCENT AUTO 1 % (0-6); Hematocrit 32.6 % (37.0-53.0); Hemoglobin 10.1 g/dL (13.5-17.5); IMMATURE GRAN ABSOLUTE AUTO 0.10 K/mm3 (0.00-0.10); IMMATURE GRAN PERCENT AUTO 2 % (0-1); LYMPHOCYTES ABSOLUTE AUTO 0.77 K/mm3 (0.84-5.20); LYMPHOCYTES PERCENT AUTO 13 % (21-46); MONOCYTES ABSOLUTE AUTO 0.71 K/mm3 (0.16-1.47); MONOCYTES PERCENT AUTO 12 % (4-13); Mean Corpuscular HGB Conc 31.0 g/dL (31.5-36.5); Mean Corpuscular Volume 96 fL (80-100); NEUTROPHILS ABSOLUTE AUTO 4.17 K/mm3 (1.96-9.15); NEUTROPHILS PERCENT AUTO 71 % (41-73); NRBC ABSOLUTE 0.00 K/mm3 (0.00-0.02); NRBC Auto 0.0 /100 WBC (0.0-0.2); Platelet Count 267 K/mm3 (150-400); RDW Coefficient Variation 18.9 % (11.7-14.2); RDW Standard Deviation 65.8 fL (35.1-46.3)
[2025-01-08 04:05] LABS: Alanine Aminotransfer (ALT/SGP 19.0 U/L (12-78); Albumin, Blood 1.9 g/dL (3.4-5.0); Albumin/Globulin Ratio 0.5 (0.8-1.8); Anion Gap 10.0 mmol/L (3-11); Aspartate Aminotrans (AST/SGOT 19.0 U/L (12-37); Bilirubin, Total 0.6 mg/dL (0.1-1.0); Blood Urea Nitrogen 21.0 mg/dL (8-24); CO2, Blood 28.0 mmol/L (21-32); Calcium, Blood 8.4 mg/dL (8.5-10.1); Chloride, Blood 107.0 mmol/L (98-108); Creatinine, Blood 1.8 mg/dL (0.60-1.20); Globulin, Blood 4.0 g/dL (2.2-4.0); Glucose, Blood 96.0 mg/dL (70-99); Potassium, Blood 4.7 mmol/L (3.5-5.5); Sodium, Blood 140.0 mmol/L (136-145); Total Protein, Blood 5.9 g/dL (6.4-8.2)
--- NOTE | 2025-01-08 06:37 | NUR ---
SHIFT SUMMARY PT HAS TOLERATED SHIFT OVERNIGHT WITH NO SIGNIFICANT EVENTS OR CHANGES IN STATUS. PT IS CURRENTLY ON BIPAP WITH SITTER AT BEDSIDE. PT AWAKENS TO VOICE AND STIMULI AND IS ALERT TO SELF ONLY. PT HAS NO COMPLAINTS OF PAIN AT THIS TIME. WILL CONTINUE TO MONITOR UNTIL REPORT PASSED TO DAY SHIFT TEAM.
[2025-01-08] MEDS ORDERED: Midazolam HCl 1MG / ML 2ML Vial IV PRN (11:10)
[2025-01-08 12:16] LABS: pH Blood Venous 7.30 (7.34-7.37)
[2025-01-08] MEDS ORDERED: Furosemide 10 MG / ML 2ML Vial IV ONE (15:50)
[2025-01-08] MEDS ORDERED: Ipratropium/Albuterol SulF 2.5-0.5MG/3 ML Amp INH SCH (17:00)
--- NOTE | 2025-01-08 19:20 | NUR ---
ASSUMPTION OF CARE REPORT RECEIVED FROM DAY RN. REVIEWED OUTSTANDING ISSUES. PT CONTINUES IN AFIB 100'S, BP STABLE. ON PRECEDEX GTT AT 1.5 MCG. PT BECOMING AGITATED, USING CHIN TO PULL AT BIPAP MASK. PRN VERSED GIVEN FOR BREAKTHROUGH AGITATION. WILL CON'T TO MONITOR.
[2025-01-09] VITALS (54 sets, daily range): BP systolic 86–156; BP diastolic 63–104
[2025-01-09 03:44] LABS: BASOPHILS ABSOLUTE AUTO 0.01 K/mm3 (0.00-0.23); BASOPHILS PERCENT AUTO 0 % (0-2); EOSINOPHILS ABSOLUTE AUTO 0.00 K/mm3 (0.00-0.68); EOSINOPHILS PERCENT AUTO 0 % (0-6); Hematocrit 34.5 % (37.0-53.0); Hemoglobin 10.5 g/dL (13.5-17.5); IMMATURE GRAN ABSOLUTE AUTO 0.08 K/mm3 (0.00-0.10); IMMATURE GRAN PERCENT AUTO 1 % (0-1); LYMPHOCYTES ABSOLUTE AUTO 0.30 K/mm3 (0.84-5.20); LYMPHOCYTES PERCENT AUTO 4 % (21-46); MONOCYTES ABSOLUTE AUTO 0.15 K/mm3 (0.16-1.47); MONOCYTES PERCENT AUTO 2 % (4-13); Mean Corpuscular HGB Conc 30.4 g/dL (31.5-36.5); Mean Corpuscular Volume 96 fL (80-100); NEUTROPHILS ABSOLUTE AUTO 7.67 K/mm3 (1.96-9.15); NEUTROPHILS PERCENT AUTO 93 % (41-73); NRBC ABSOLUTE 0.00 K/mm3 (0.00-0.02); NRBC Auto 0.0 /100 WBC (0.0-0.2); Platelet Count 273 K/mm3 (150-400); RDW Coefficient Variation 18.7 % (11.7-14.2); RDW Standard Deviation 65.8 fL (35.1-46.3)
[2025-01-09 04:11] LABS: Anion Gap 12.0 mmol/L (3-11); Blood Urea Nitrogen 21.0 mg/dL (8-24); CO2, Blood 25.0 mmol/L (21-32); Calcium, Blood 8.8 mg/dL (8.5-10.1); Chloride, Blood 105.0 mmol/L (98-108); Creatinine, Blood 1.85 mg/dL (0.60-1.20); Glucose, Blood 146.0 mg/dL (70-99); Potassium, Blood 5.1 mmol/L (3.5-5.5); Sodium, Blood 137.0 mmol/L (136-145)
--- NOTE | 2025-01-09 05:47 | NUR ---
SHIFT SUMMARY PT CON'T ON BIPAP, FIO2 .30, FAUSTINA WELL DURING SHIFT WITH PRECEDEX GTT AT 1.5 MCG/KG/HR. A FEW DOSES OF VERSED GIVEN EARLIER IN SHIFT FOR BREAKTHROUGH AGITATION, BUT LESS REQUIRED LATER IN SHIFT. HR HIT 130'S EARLIER IN SHIFT AND WAS GIVEN METOPROLOL IV X 2 WITH GOOD RESULT. HR BACK TO 100'S AFTER MED, WITH A STABLE BP. WILL UPDATE DAY RN WITH OUTSTANDING ISSUES AND PROBLEMS TO DATE.
[2025-01-09] MEDS ORDERED: Midazolam HCl 1MG / ML 2ML Vial IV PRN (08:05)
[2025-01-09 08:39] LABS: pH Blood Venous 7.34 (7.34-7.37)
--- NOTE | 2025-01-09 09:04 | NUR ---
ASSUMPTION OF CARE: THIS RN ASSUMED CARE OF PT AT APPROX 0700, BEDSIDE REPORT FROM NOC RN. PT LETHARGIC, YELLING OUT. RASS +2. UNABLE TO FOLLOW ANY COMMANDS. TRANSITIONED FROM BIPAP TO 4L NC. ON INITIAL ASSESSMENT, LEFT PUPIL FIXED, NOT REACTIVE TO LIGHT. RIGHT PUPIL SLUGGISH BUT RESPONSIVE. MOVING ALL EXTREMITIES BUT W/O MEANINGFUL MOVEMENT. DR. MILLER NOTIFIED, ORDERS RECEIVED FOR STAT HEAD CT. PT ON PRECEDEX GTT AT 1.5 MCG/KG/HR. ORDERS FROM DR. MILLER TO TITRATE PRECEDEX GTT DOWN TO 0.7 MCG/KG/HR. VERSED IVP VIA EMAR. ORAL CARE PROVIDED W/ CASTS REMOVED. LEA CATH IN PLACE, PATENT & DRAINING YELLOW URINE TO GRAVITY. PT REPOSITIONED TO PROMOTE SKIN INTEGRITY. NPO AT THIS TIME. BWR IN PLACE W/ 1:1 SITTER AT BEDSIDE.
[2025-01-09] MEDS ORDERED: Midazolam HCl 1MG / ML 2ML Vial IV ONE (09:05)
[2025-01-09] MEDS ORDERED: HYDROmorphone HCl/Pf 1MG SYR IV PRN (10:10)
[2025-01-09] MEDS ORDERED: Albuterol 2.5 MG/3 ML VIAL INH PRN (14:05)
--- NOTE | 2025-01-09 18:37 | NUR ---
END OF SHIFT NOTE: PT HAS CONTINUED TO YELL OUT SOUNDS, NO DISCERNABLE WORDS. DISORIENTED, UNABLE TO COMMUNICATE NEEDS. RASS -1 TO +2. PRECEDEX GTT INFUSING AT 0.7 MCG/KG/HR, VERSED PRN PER ORDERS. DILAUDID FOR PAIN RELIEF, FLACC SIGNIFICANTLY IMPROVED W/ MEDICATION. HR 90-120'S, UP TO 140'S; PRN LOPRESSOR PUSH ADMINISTERED PER ORDERS. SBP 90-110'S, MAP >65. SPO2 88-92% ON BIPAP W/ FIO2 30-60% T/O SHIFT, BREAKS ON 4-6L NC. SOME MOTTLING OF BLE NOTED WHEN OFF BIPAP DURING BATH, RESOLVED W/ BIPAP PLACEMENT; DR. MILLER AWARE. LEA CATH REMAINS IN PLACE PATENT & DRAINING YELLOW URINE TO GRAVITY. NO BM'S. Q2HR REPOSITIONING T/O SHIFT, Q4HR ORAL CARE. CASTS REMOVED THIS AM. PT REMAINS NPO. CHG BATH COMPLETED. BWR IN PLACE, 1:1 SITTER AT BEDSIDE.
[2025-01-10] VITALS (54 sets, daily range): BP systolic 102–154; BP diastolic 71–128
[2025-01-10 03:35] LABS: BASOPHILS ABSOLUTE AUTO 0.01 K/mm3 (0.00-0.23); BASOPHILS PERCENT AUTO 0 % (0-2); EOSINOPHILS ABSOLUTE AUTO 0.00 K/mm3 (0.00-0.68); EOSINOPHILS PERCENT AUTO 0 % (0-6); Hematocrit 33.7 % (37.0-53.0); Hemoglobin 10.3 g/dL (13.5-17.5); IMMATURE GRAN ABSOLUTE AUTO 0.06 K/mm3 (0.00-0.10); IMMATURE GRAN PERCENT AUTO 1 % (0-1); LYMPHOCYTES ABSOLUTE AUTO 0.51 K/mm3 (0.84-5.20); LYMPHOCYTES PERCENT AUTO 6 % (21-46); MONOCYTES ABSOLUTE AUTO 0.37 K/mm3 (0.16-1.47); MONOCYTES PERCENT AUTO 4 % (4-13); Mean Corpuscular HGB Conc 30.6 g/dL (31.5-36.5); Mean Corpuscular Volume 93 fL (80-100); NEUTROPHILS ABSOLUTE AUTO 7.38 K/mm3 (1.96-9.15); NEUTROPHILS PERCENT AUTO 89 % (41-73); NRBC ABSOLUTE 0.00 K/mm3 (0.00-0.02); NRBC Auto 0.0 /100 WBC (0.0-0.2); Platelet Count 270 K/mm3 (150-400); RDW Coefficient Variation 18.7 % (11.7-14.2); RDW Standard Deviation 64.4 fL (35.1-46.3)
[2025-01-10 03:54] LABS: Alanine Aminotransfer (ALT/SGP 16.0 U/L (12-78); Albumin, Blood 2.1 g/dL (3.4-5.0); Albumin/Globulin Ratio 0.5 (0.8-1.8); Anion Gap 7.0 mmol/L (3-11); Aspartate Aminotrans (AST/SGOT 10.0 U/L (12-37); Bilirubin, Total 0.5 mg/dL (0.1-1.0); Blood Urea Nitrogen 27.0 mg/dL (8-24); CO2, Blood 32.0 mmol/L (21-32); Calcium, Blood 9.1 mg/dL (8.5-10.1); Chloride, Blood 108.0 mmol/L (98-108); Creatinine, Blood 1.84 mg/dL (0.60-1.20); Globulin, Blood 4.4 g/dL (2.2-4.0); Glucose, Blood 157.0 mg/dL (70-99); Magnesium, Blood 2.0 mg/dL (1.6-2.4); Phosphorus, Blood 3.3 mg/dL (2.5-4.9); Potassium, Blood 4.5 mmol/L (3.5-5.5); Sodium, Blood 142.0 mmol/L (136-145); Total Protein, Blood 6.5 g/dL (6.4-8.2)
--- NOTE | 2025-01-10 06:19 | NUR ---
SHIFT SUMMARY PT HAD DIFFICULT NIGHT OFF AND ON WITH PAIN/AGITATION/RESTLESSNESS. PRECEDEX CON'T AT 0.7 MCG/KG/HOUR WITH NO TITRATION PER MD. MEDICATED WITH VERSED AND DILAUDID PRN BREAKTHROUGH AGITATION AND PAIN. METOPROLOL IV GIVEN X1 FOR HR 130'S WITH GOOD RESULT. VSS AT THIS TIME, HR 94, STILL AFIB. REMAINS ON BIPAP WITH CURRENT 02 SAT AT 100%. WILL UPDATE DAY RN WITH ALL OUTSTANDING ISSUES AND PROBLEMS TO DATE.
--- NOTE | 2025-01-10 09:58 | NUR ---
AM NOTE... ASSUMED CARE OF PT AT 0700. PT WAS ON PRECEDEX GTT RUNNING AT 0.7MCG/KG/HR. BIPAP WITH AVAPS SETTING WAS AT TV: 450, PEEP 10 AND 45% THIS WAS CHANGED BY SOLE SCRAPER TO TV: 450, PEEP 7 AND 35% WITH O2 SATS>95%. L/S COARSE AND DIM T/O. PT IS IN AFIB IN THE 90'S BP STABLE WITH MAPS>65. BT PRESENT AND HYPOACTIVE. SOFT RESTRAINTS IN PLACE BUE. PT HAS 1+ GENERALIZED EDEMA NOTED. AFTER THIS ASSESSMENT THE PRECEDEX WAS TITRATED DOWN TO 0.3MCG/KG/HR, THE PT WOKE APROX 15MINS LATER YELLING OUT AND THRASHING/PULLILNG AND PINCHING STAFF. PT MOANS AND YELLS OUT BUT WILL NOT FOLLOW COMMANDS. THE PT WILL SAY "HI" TO CERTAIN STAFF. PT MEDICATED PER EMAR WITH ZYPREXA FOR AGGIATION WITH IMPROVMENT.
[2025-01-10] MEDS ORDERED: Midazolam HCl 1MG / ML 2ML Vial IV PRN ×2 (10:40→13:45)
[2025-01-10] MEDS ORDERED: Midazolam HCl 1MG / ML 2ML Vial IV ONE (13:45)
--- NOTE | 2025-01-10 18:08 | NUR ---
SHIFT SUMMARY... PT CONTINUES TO YELL OUT AND MOAN. PT IS ABLE TO ANSWER SOME QUESTIONS WITH CERTAIN STAFF. THE PT WILL ANSWER TO HIS NAME SOMETIMES. THE PT HAS BEEN ON RA MOST OF THIS SHIFT WITH SMALL EPISODES OF APNEA, THESE EPISODES INCREASE WHEN HE IS GIVEN IV PAIN MEDICATIONS BUT ONLY LAST 10-20 SECONDS,O2 SATS DROP TO THE LOW 80'S DURING THESE EPISODES BUT WILL QUICKLY IMPROVE. THE PT'S PRECEDEX DRIP WAS INCREASED TO 0.7MCG/KG/HR D/T THE PT'S AGITATION. AMIO GTT STARTED PER ORDERS D/T THE PT'S SUSTAINED HR IN THE 140'S-170'S. THE PT'S LEA WAS D/C'D IN HOPES IT WOULD HELP THE PT'S AGIATION BUT IT DID NOT. A PURWICK IS NOW IN PLACE. THE PT HAS NOT VOIDED SINCE THE LEA REMOVAL AT APROX 1100. BLADDER SCAN WAS DONE AT 1830 THAT SHOWED 307MLS IN THE BLADDER. PT HAS ALSO NOT HAD A BM SINCE PRIOR TO ADMIT.
--- NOTE | 2025-01-10 21:08 | NUR ---
ASSUMPTION OF CARE CARE OF PT ASSUMED FOLLOWING BEDSIDE SHIFT REPORT FROM DAY RN. PT LYING IN BED IN RESTRAINTS, THRASHING ABOUT AND MOANING/SCREAMING LOUDLY. PT IS ORIENTED TO SELF/PLACE. PT ANSWERS SOME QUESTIONS AND DENIES NEEDING ANYTHING. HE CANNOT SAY WHY HE IS MOANING AND THRASHING IN BED. PRECEDEX IS INFUSING AT 0.7 MCG/KG/HR. REPORTEDLY, THE GOAL IS TO PROVIDE MINIMAL SEDATION TO PT. HR IS 140-170 A FIB, WITH AMIODARONE INFUSING AT 0.5MG/MIN. BP STABLE. PT HAS PO CARDIAC MEDICATIONS ON SEP THOUGH SWALLOWING SAFETY NEGLIGIBLE/DIFFICULT TO ASCERTAIN. IV METOPROLOL PRN AVIALABLE. PT PUT ON BIPAP DURING ASSESSMENT DUE TO APNEA. AVAPS 450ML 14/MIN 35% FIO2 EPAP 7.0, PRODUCING >92% SATURATION. LUNGS MOVING AIR IN ALL WARD, GURGLING IN UPPER AIRWAY. PUREWICK IN PLACE TO SUCTION- NO OUTPUT SINCE LEA REMOVED. SITTER IS IN ROOM. WILL REVIEW AND CONTINUE PLAN OF CARE.
[2025-01-11] VITALS (24 sets, daily range): BP systolic 132–172; BP diastolic 88–134
[2025-01-11 03:23] LABS: BASOPHILS ABSOLUTE AUTO 0.01 K/mm3 (0.00-0.23); BASOPHILS PERCENT AUTO 0 % (0-2); EOSINOPHILS ABSOLUTE AUTO 0.00 K/mm3 (0.00-0.68); EOSINOPHILS PERCENT AUTO 0 % (0-6); Hematocrit 34.2 % (37.0-53.0); Hemoglobin 10.7 g/dL (13.5-17.5); IMMATURE GRAN ABSOLUTE AUTO 0.07 K/mm3 (0.00-0.10); IMMATURE GRAN PERCENT AUTO 1 % (0-1); LYMPHOCYTES ABSOLUTE AUTO 0.94 K/mm3 (0.84-5.20); LYMPHOCYTES PERCENT AUTO 9 % (21-46); MONOCYTES ABSOLUTE AUTO 0.76 K/mm3 (0.16-1.47); MONOCYTES PERCENT AUTO 8 % (4-13); Mean Corpuscular HGB Conc 31.3 g/dL (31.5-36.5); Mean Corpuscular Volume 94 fL (80-100); NEUTROPHILS ABSOLUTE AUTO 8.36 K/mm3 (1.96-9.15); NEUTROPHILS PERCENT AUTO 82 % (41-73); NRBC ABSOLUTE 0.00 K/mm3 (0.00-0.02); NRBC Auto 0.0 /100 WBC (0.0-0.2); Platelet Count 295 K/mm3 (150-400); RDW Coefficient Variation 19.2 % (11.7-14.2); RDW Standard Deviation 66.4 fL (35.1-46.3)
[2025-01-11 03:39] LABS: Anion Gap 6.0 mmol/L (3-11); Blood Urea Nitrogen 27.0 mg/dL (8-24); CO2, Blood 31.0 mmol/L (21-32); Calcium, Blood 9.0 mg/dL (8.5-10.1); Chloride, Blood 112.0 mmol/L (98-108); Creatinine, Blood 1.79 mg/dL (0.60-1.20); Glucose, Blood 135.0 mg/dL (70-99); Magnesium, Blood 2.1 mg/dL (1.6-2.4); Phosphorus, Blood 2.6 mg/dL (2.5-4.9); Potassium, Blood 4.3 mmol/L (3.5-5.5); Sodium, Blood 145.0 mmol/L (136-145)
--- NOTE | 2025-01-11 07:39 | NUR ---
SHIFT SUMMARY PT ALERT AND ORIENTED TO PERSON, PLACE, SELF. HE KNOWS THE YEAR BUT NOT THE MONTH/DAY OR THE NAME OF THIS HOSPITAL. PT CONTINUES TO YELL/MOAN CONSTANTLY WHILE CONSCIOUS. PRECEDEX IS INFUSING AT 0.7; THIS RN TRIALED AN INCREASE IN THIS INFUSION, WHICH DID NOT SEEM TO HELP. PT DID RESPOND ONCE TO PRN VERSED PUSH, LESS SO TO SUBSEQUENT PUSHES OR THE DILAUDID PUSHES. PT DENIES PAIN AND WHEN ASKED WHAT HE WANTS, HE RESPONDS THAT HE WANTS TO GO HOME. PT IN A FIB 100-130 RATE. AMIO INFUSING AT 0.5MG/MIN. BP STABLE TO ELEVATED DBP. PT WORE BIPAP ALL NIGHT DUE TO APNEA, THOUGH HE HAS DONE WELL WITH O2 SATURATION ON RA FOR THE LAST 2 HOURS. UPPER AIRWAYS STILL SOUNDS WET. NO BM DURING SHIFT. PT WAS STRAIGHT CATHED ONCE FOR OUTPUT OF 600ML. BEDSIDE SHIFT REPORT GIVEN TO TAYE SEN RN. SITTER IN ROOM. BUE SOFT RESTRAINTS IN PLACE.
[2025-01-11] MEDS ORDERED: Metoprolol Tartrate 1 MG/ML 5 ML VIAL IV PRN (15:15)
--- NOTE | 2025-01-11 18:15 | NUR ---
PATIENT REMAINS CONFUSED TODAY, PERIODICALLY YELLING OUT/MOANING, NOT ABLE TO HAVE MEANINGFUL INTERACTION OUTSIDE OF SIMPLE YES/NO STATEMENTS. TACHYCARDIA REMAINS AN ISSUE, AT ONE POINT UNABLE TO GET HR UNDER 150BPM WITH CURRENT PHARMACUTICAL REGIMENT. DISCUSSED WITH DR GONZALEZ CONCERNING THIS ~ 15:00, EXTENDED AMIODARIONE INFUSION AND ADDED DILTIAZEM IVP WHICH SEEMED TO START HAVING AN EFFECT ON HR NEAR THE END OF SHIFT. ATTEMPT TO WEAN OFF PRECEDEX INFUSION UNSUCCESSFUL DUE TO RN CONCERN FOR REBOUND TACHYCARDIA WITH HIGH HR IN THE AFTERNOON HOURS OF THE SHIFT. PATIENT WAS AGITATED THROUGHOUT SHIFT, HOWEVER, SHOWED NO WORSENING NOR IMPROVEMENT IN RELATION TO DOSAGE OF PRECEDEX.
[2025-01-11] MEDS ORDERED: Metoprolol Tartrate 1 MG/ML 5 ML VIAL IV SCH (21:00)
--- NOTE | 2025-01-11 21:12 | NUR ---
ASSUME CARE: BEDSIDE REPORT RECIEVED FROM DAYSMSFT RN. PT ALERT TO VERBAL STIMULI, RASS +2 ON PRECEDEX GTT, SEE FLOWSHEET FOR TITRATIONS. PT SHOUTING OUT AT TIMES AND RESTLESS IN BED, REPOSITIONED AND MEDICATED PER EMAR. PT DENIES PAIN. BWR IN PLACE. SBP 160s, MAP>65, MONITOR SHOWS AFIB, RATE 130s-170s. SPO2 88-90% ON 4L NC. ATTENDS IN PLACE. WILL UPDATE NEEDED.
[2025-01-12] VITALS (30 sets, daily range): BP systolic 126–175; BP diastolic 93–129
[2025-01-12 03:36] LABS: BASOPHILS ABSOLUTE AUTO 0.01 K/mm3 (0.00-0.23); BASOPHILS PERCENT AUTO 0 % (0-2); EOSINOPHILS ABSOLUTE AUTO 0.01 K/mm3 (0.00-0.68); EOSINOPHILS PERCENT AUTO 0 % (0-6); Hematocrit 35.2 % (37.0-53.0); Hemoglobin 10.7 g/dL (13.5-17.5); IMMATURE GRAN ABSOLUTE AUTO 0.08 K/mm3 (0.00-0.10); IMMATURE GRAN PERCENT AUTO 1 % (0-1); LYMPHOCYTES ABSOLUTE AUTO 0.72 K/mm3 (0.84-5.20); LYMPHOCYTES PERCENT AUTO 7 % (21-46); MONOCYTES ABSOLUTE AUTO 0.77 K/mm3 (0.16-1.47); MONOCYTES PERCENT AUTO 7 % (4-13); Mean Corpuscular HGB Conc 30.4 g/dL (31.5-36.5); Mean Corpuscular Volume 94 fL (80-100); NEUTROPHILS ABSOLUTE AUTO 9.24 K/mm3 (1.96-9.15); NEUTROPHILS PERCENT AUTO 85 % (41-73); NRBC ABSOLUTE 0.00 K/mm3 (0.00-0.02); NRBC Auto 0.0 /100 WBC (0.0-0.2); Platelet Count 259 K/mm3 (150-400); RDW Coefficient Variation 19.4 % (11.7-14.2); RDW Standard Deviation 67.4 fL (35.1-46.3)
[2025-01-12 04:15] LABS: Alanine Aminotransfer (ALT/SGP 20 U/L (12-78); Albumin, Blood 2.3 g/dL (3.4-5.0); Albumin/Globulin Ratio 0.6 (0.8-1.8); Anion Gap 5 mmol/L (3-11); Aspartate Aminotrans (AST/SGOT 20 U/L (12-37); Bilirubin, Total 0.5 mg/dL (0.1-1.0); Blood Urea Nitrogen 30 mg/dL (8-24); CO2, Blood 31 mmol/L (21-32); Calcium, Blood 8.8 mg/dL (8.5-10.1); Chloride, Blood 114 mmol/L (98-108); Creatinine, Blood 1.76 mg/dL (0.60-1.20); Globulin, Blood 3.7 g/dL (2.2-4.0); Glucose, Blood 110 mg/dL (70-99); Potassium, Blood 4.2 mmol/L (3.5-5.5); Sodium, Blood 146 mmol/L (136-145); Total Protein, Blood 6.0 g/dL (6.4-8.2)
--- NOTE | 2025-01-12 05:17 | NUR ---
SHIFT SUMMARY: PT ALERT TO VERBAL STIMULI, RASS +2, THRASHING IN BED AND MOANING FOR MOST OF THE NIGHT, MEDICATED PER EMAR FOR PAIN, 2MG OF DILAUDID GIVEN AT 0130 WHICH SEEMED TO HELP PT, RASS -2 AND PT ABLE TO SLEEP SINCE THEN. PRECEDEX GTT INFUSING AT 0.7 MCG/KG/HR. SBP 140-150s, MAP>65. MONITOR SHOWS AFIB, RATE 80-100s. SPO2>90% ON 5L VENTI MASK. PUREWICK IN PLACE DRAINING TO SUCTION. WILL REPORT TO ONCOMING RN.
[2025-01-12] MEDS ORDERED: Haloperidol Lactate Inj. 5 MG/ML Injection IV PRN (09:15)
--- NOTE | 2025-01-12 18:26 | NUR ---
PATIENT ABLE TO PUT TOGETHER SIMPLE SENTENCES TODAY, STILL CONFUSED, PULLING AT LINES AND YELLING OUT. WAS ABLE TO PARTICIPATE WITH SWALLOW STUDY, UNFORTUNATELY PT FAILED EXAM WITH THERAPIST. ABLE TO SUCCESSFULLY WEAN OFF THE PRECEDEX INFUSION.
[2025-01-12] MEDS ORDERED: Enoxaparin 120 MG/0.8 ML SYR SC SCH (21:00)
--- NOTE | 2025-01-12 22:01 | NUR ---
ASSUMPTION OF CARE CARE OF PT ASSUMED FOLLOWING BEDSIDE SHIFT REPORT FROM DAY RN. PT LYING IN BED IN RESTRAINTS, CALM. ALERT AND ORIENTED TO PERSON, SELF AND TIME. PRECEDEX OFF. HR IS 110-130 A FIB. BP STABLE TO ELEVATED, DBP > 100 AT ALL TIMES. PT ON RA, PRODUCING >92% SATURATION. LUNGS MOVING AIR IN ALL WARD, GURGLING IN UPPER AIRWAY. PUREWICK IN PLACE TO SUCTION. WILL REVIEW AND CONTINUE PLAN OF CARE.
--- NOTE | 2025-01-12 23:04 | NUR ---
UPDATE: PT BEHAVIOR POST MEDICATION PT STARTED OFF SHIFT CALM, QUIET, WELL BEHAVED. PT WAS MEDICATED FOR PAIN AND HIS BEHAVIOR STAYED THE SAME. 1HR AFTER MEDICATING PT WITH SCHEDULED SEROQUEL, HE STARTED MOANING LIKE HE HAD FOR LAST SEVERAL DAYS. WAS THE CASE THEN, WHEN ASKED, THE PT SAYS THAT HE IS FINE AND DOESN'T NEED ANYTHING.
[2025-01-13] VITALS (23 sets, daily range): BP systolic 118–180; BP diastolic 66–141
[2025-01-13 03:35] LABS: BASOPHILS ABSOLUTE AUTO 0.01 K/mm3 (0.00-0.23); BASOPHILS PERCENT AUTO 0 % (0-2); EOSINOPHILS ABSOLUTE AUTO 0.05 K/mm3 (0.00-0.68); EOSINOPHILS PERCENT AUTO 1 % (0-6); Hematocrit 37.1 % (37.0-53.0); Hemoglobin 11.5 g/dL (13.5-17.5); IMMATURE GRAN ABSOLUTE AUTO 0.13 K/mm3 (0.00-0.10); IMMATURE GRAN PERCENT AUTO 1 % (0-1); LYMPHOCYTES ABSOLUTE AUTO 1.03 K/mm3 (0.84-5.20); LYMPHOCYTES PERCENT AUTO 9 % (21-46); MONOCYTES ABSOLUTE AUTO 0.74 K/mm3 (0.16-1.47); MONOCYTES PERCENT AUTO 7 % (4-13); Mean Corpuscular HGB Conc 31.0 g/dL (31.5-36.5); Mean Corpuscular Volume 93 fL (80-100); NEUTROPHILS ABSOLUTE AUTO 9.06 K/mm3 (1.96-9.15); NEUTROPHILS PERCENT AUTO 82 % (41-73); NRBC ABSOLUTE 0.00 K/mm3 (0.00-0.02); NRBC Auto 0.0 /100 WBC (0.0-0.2); Platelet Count 285 K/mm3 (150-400); RDW Coefficient Variation 19.5 % (11.7-14.2); RDW Standard Deviation 65.7 fL (35.1-46.3)
[2025-01-13 04:08] LABS: Albumin, Blood 2.6 g/dL (3.4-5.0); Anion Gap 5 mmol/L (3-11); Blood Urea Nitrogen 27 mg/dL (8-24); CO2, Blood 31 mmol/L (21-32); Calcium, Blood 9.1 mg/dL (8.5-10.1); Chloride, Blood 114 mmol/L (98-108); Creatinine, Blood 1.76 mg/dL (0.60-1.20); Glucose, Blood 103 mg/dL (70-99); Phosphorus, Blood 2.7 mg/dL (2.5-4.9); Potassium, Blood 3.8 mmol/L (3.5-5.5); Sodium, Blood 146 mmol/L (136-145)
--- NOTE | 2025-01-13 06:06 | NUR ---
SHIFT SUMMARY PT LYING IN BED IN RESTAINTS, HOLLERING OUT NON-SENSICAL THINGS, OTHERWISE IN NO APPARENT DISTRESS. PT WAS CALM FOR A COUPLE OF HOURS BUT SOON 0 CAME, HIS DEMEANOR CHANGED TO MORE CONFUSED AND AGITATED, AND BY 0 THE PT BECAME VIOLENT WITH STAFF AT ONE POINT, BREAKING OUT OF RESTRAINTS. PT STAYED IN A FIB WITH RVR WITH [id number] DBP. RA VS 2LNC FOR APNEA PRODUCED SAT >90%. PT HAD ONE LARGE AND ONE SMALL BM. PT URINATED 225, CONTINENT INTO URINAL. SALINE LOCKED. BEDSIDE SHIFT REPORT GIVEN TO DAY RN.
[2025-01-13] MEDS ORDERED: Metoprolol Tartrate 1 MG/ML 5 ML VIAL IV PRN (07:00)
[2025-01-13] MEDS ORDERED: Docusate Sodium Liquid 100 MG UDC PT PRN (13:50)
[2025-01-13] MEDS ORDERED: Magnesium Hydroxide Conc 10 ML UDC PT PRN (13:50)
--- NOTE | 2025-01-13 18:39 | NUR ---
PATIENT AWAKE THOUGHOUT MOST OF SHIFT, STILL REMAINS CONFUSED HOWEVER ABLE TO STATE HE IS AT [facility]. GAVE PATIENT SOME ICE CHIPS AND SIP OF WATER AT BEDSIDE WITH DR CARLOS AWAD, AGREE TO GIVE PT HIS PO MEDS THIS MORNING. PT ABLE TO SWALLOW MEDS WITHOUT OBSERVED DIFFICULTY. HOF PLACED THIS AFTERNOON TO START TUBE FEEDS, Endy DUCKWORTH NP REVIEWED XR AND CLEARED THE HOF FOR USE.
--- NOTE | 2025-01-13 23:27 | NUR ---
UPDATE: TF STARTED AT 2200, JEVITY 1.5 AT 20ML/HR WHICH IS CURRENT GOAL WITH 30ML Q 4HR WATER FLUSHES
--- NOTE | 2025-01-13 23:45 | NUR ---
ASSUMPTION OF CARE CARE OF PT ASSUMED FOLLOWING BEDSIDE SHIFT REPORT FROM DAY RN. PT LYING IN BED IN RESTRAINTS, CALM. ALERT AND ORIENTED TO PERSON, SELF AND TIME. PRECEDEX OFF. HR IS 110-130 A FIB. BP STABLE TO ELEVATED, DBP > 100 AT ALL TIMES. PT ON RA, PRODUCING >92% SATURATION. LUNGS MOVING AIR POORLY IN ALL WARD, GURGLING IN UPPER AIRWAY. WILL REVIEW AND CONTINUE PLAN OF CARE.
[2025-01-14] VITALS (24 sets, daily range): BP systolic 114–168; BP diastolic 87–143
[2025-01-14 04:03] LABS: Albumin, Blood 2.5 g/dL (3.4-5.0); Anion Gap 5 mmol/L (3-11); Blood Urea Nitrogen 23 mg/dL (8-24); CO2, Blood 30 mmol/L (21-32); Calcium, Blood 8.7 mg/dL (8.5-10.1); Chloride, Blood 116 mmol/L (98-108); Creatinine, Blood 1.81 mg/dL (0.60-1.20); Glucose, Blood 113 mg/dL (70-99); Magnesium, Blood 2.0 mg/dL (1.6-2.4); Phosphorus, Blood 3.2 mg/dL (2.5-4.9); Potassium, Blood 3.9 mmol/L (3.5-5.5); Sodium, Blood 147 mmol/L (136-145)
--- NOTE | 2025-01-14 06:45 | NUR ---
SHIFT SUMMARY PT LYING IN BED IN RESTAINTS, HOLLERING OUT NON-SENSICAL THINGS, OTHERWISE IN NO APPARENT DISTRESS. PT IS ALERT AND ORIENTED TO SELF, AND TIME, MINUS EXACT DATE. NIGHT SEROQUEL WAS HELD IN AN ATTEMPT TO DECREASE NOISE FROM PT. PT WAS BETTER BEHAVED THAN PREVIOUS NIGHTS. PT STAYED IN A FIB WITH RVR WITH ELEVATED DBP. RA VS 2LNC FOR APNEA PRODUCED SAT >90%. PT HAD 2 LARGE AND ONE SMALL BM. TF AT 20ML/HR WHICH IS CURRENT GOAL. URINE OUTPUT ALL INCONTINENT AND UNMEASURED. SALINE LOCKED. BEDSIDE SHIFT REPORT GIVEN TO DAY RN.
[2025-01-14] MEDS ORDERED: Protein Supplement 30 ML UD PT SCH (14:25)
--- NOTE | 2025-01-14 18:33 | NUR ---
Patient showing signs of memory of improving as evidenced by ability to remeber RN's name throughout shift, however, still confused as stating "Get out of my house" or asking RN to "go to the store and get a cheap bottle of whiskey". Patient's HR consistenly under 130 bpm today after given adjusted (increased) dose of metoprolol. Got patient OOB to chair via ceiling lift for ~ 2hours this morning. Upon returning to bed, patient had selpt soundly throughout morning, whereas during previous shift this RN observed his sleep as sporatic 5-10 min naps before awakening screaming at random. Patient tolerating increased rate of 40ml/hr on his tube feeding thus far. Still requiring restraints as patient continues to reach for and attempt to pull at lines and tubes.
[2025-01-15] VITALS (19 sets, daily range): BP systolic 137–185; BP diastolic 89–164
[2025-01-15 04:06] LABS: Albumin, Blood 2.3 g/dL (3.4-5.0); Anion Gap 5 mmol/L (3-11); Blood Urea Nitrogen 25 mg/dL (8-24); CO2, Blood 32 mmol/L (21-32); Calcium, Blood 8.7 mg/dL (8.5-10.1); Chloride, Blood 116 mmol/L (98-108); Creatinine, Blood 1.84 mg/dL (0.60-1.20); Glucose, Blood 131 mg/dL (70-99); Magnesium, Blood 2.0 mg/dL (1.6-2.4); Phosphorus, Blood 2.9 mg/dL (2.5-4.9); Potassium, Blood 3.6 mmol/L (3.5-5.5); Sodium, Blood 149 mmol/L (136-145)
--- NOTE | 2025-01-15 06:20 | NUR ---
SHIFT SUMMARY PT HAS TOLERATED HOUSE WIRER HELPER WITH NO SIGNIFICANT CHANGES IN STATUS. PT IS ALERT TO SELF. PT NOT COMBATIVE BUT DUE TO POTENTIAL FOR PULLING LINES AND TUBES, IS IN SOFT RESTRAINTS. PT CONFUSED OVERNIGHT TO LOCATION AND SITUATION. FREQUENTLY YELLS FOR HELP AND REQUESTS DIFFERENT THINGS STEMING FROM DISORIENTATION, SUCH ASKING FOR A PROPANE HEATER TO BE TURNED ON THAT HE STATES IS IN THE ROOM WITH HIM. PT OTHERWISE RESTING IN ROOM AND WHEN REORIENTED, ASKS "WHAT DO i NEED TO DO TO GET OUT OF HERE?" PT TOLD THAT HE NEEDS TO GET BETTER AND AT THIS TIME NEEDS TO REST. PT COMPLIES WITH THIS. PT CURRENTLY APPEARS TO BE RESTING COMFORTABLY IN ROOM. WILL CONTINUE TO MONITOR UNTIL REPORT PASSED TO DAY SHIFT TEAM.
--- NOTE | 2025-01-15 08:27 | NUR ---
AM NOTE... ASSUMED CARE OF PT AT 0700, PT IS A&O TO SELF AND PLACE. PT IS ASKING FOR WATER AND UPSET THAT HE IS NPO. PT WAS EDUCATED ON HIS HIGH RISK FOR ASPIRATION AND WHY HE HAS THE DOBHOFF. PT IS IN AFIB IN THE 100'S-120'S BP IS HYPERTENSIVE WITH SBPs IN THE 160'S. PT MEDICATED PER EMAR WITH SCHEDULED MEDICATIONS.DOBHOFF IS 65 AT THE LEFT NARE. TUBE FEEDS RUNNING AT 40MLS/HR WHICH IS GOAL, 100MLS Q4HR OF WATER FLUSHES. PT IS ON RA WITH O2 SATS>90% L/S COARSE AND DIM T/O. PT HAS SOFT BILATERAL WRIST RESTRAINTS TO PREVENT THE DOBHOFF BEING PULLED OUT. PURWICK IN PLACE TO LOW WALL SUCTION.
[2025-01-15] MEDS ORDERED: Folic Acid 1 MG TAB PO SCH (09:00)
--- NOTE | 2025-01-15 18:04 | NUR ---
SHIFT SUMMARY.... PT CONTINUES TO BE A&O x2 WITH MOMENTS HE IS A&Ox3. PT CONTINUES TO BE ON RA WITH O2 SATS>90%. TUBE FEEDS RUNNING PER ORDERS AT 40MLS/HR WITH 100MLS OF H2O FLUSHES Q4HR D/T INCREASED SERUM SODIUM. D5W AT 75MLS/HR WAS ALSO STARTED FOR THE INCREASED SERUM SODIUM. THE PT'S PURWICK WAS CHANGED ALONG WITH THE CANISTER AND TUBING. NO BM THIS SHIFT. PT WAS SEEN BY SPEECH THERAPY AND FAILED AGAIN, PLANS ARE TO HOLD THE AM SEROQUEL UNTIL AFTER HE IS SEEN BY SPEECH AGAIN IN THE MORNING TO SEE IF IT WILL HELP DECREASE DROWSINESS IN THE PT.
[2025-01-16] VITALS (7 sets, daily range): BP systolic 117–150; BP diastolic 80–109
[2025-01-16 03:20] LABS: Hematocrit 35.2 % (37.0-53.0); Hemoglobin 10.8 g/dL (13.5-17.5); Mean Corpuscular HGB Conc 30.7 g/dL (31.5-36.5); Mean Corpuscular Volume 94 fL (80-100); NRBC ABSOLUTE 0.00 K/mm3 (0.00-0.02); NRBC Auto 0.0 /100 WBC (0.0-0.2); Platelet Count 237 K/mm3 (150-400); RDW Coefficient Variation 19.9 % (11.7-14.2); RDW Standard Deviation 67.7 fL (35.1-46.3)
[2025-01-16 03:58] LABS: Anion Gap 4.0 mmol/L (3-11); Blood Urea Nitrogen 28.0 mg/dL (8-24); CO2, Blood 31.0 mmol/L (21-32); Calcium, Blood 8.8 mg/dL (8.5-10.1); Chloride, Blood 113.0 mmol/L (98-108); Creatinine, Blood 1.68 mg/dL (0.60-1.20); Glucose, Blood 126.0 mg/dL (70-99); Magnesium, Blood 2.1 mg/dL (1.6-2.4); Phosphorus, Blood 3.6 mg/dL (2.5-4.9); Potassium, Blood 4.0 mmol/L (3.5-5.5); Sodium, Blood 144.0 mmol/L (136-145)
--- NOTE | 2025-01-16 05:21 | NUR ---
SHIFT SUMMARY: PT CONTINUES WITH A FLUCTUATING LEVEL OF ORIENTATION AND AWARENESS. HE SEEMED MORE LETHARGIC LAST NIGHT AND WAS FEBRILE AT THE START OF SHIFT. HE DID SLEEP THROUGH MOST OF THE EVENING AND DID NOT YELL OUT UNTIL THE AM. THOUGH HE CONTINUES TO BE MORE COOPERATIVE THAN PREVIOUS NIGHTS. CONFUSION PERSISTS AND HE REMAINS IN RESTRAINTS HE CONTINUES TO REACH AND PULL AT IVS AND FEEDING TUBE WHEN RESTRAINTS ARE OFF FOR REPOSITIONING. OVERALL NO SIGNIFICANT CHANGES OR EVENTS OVERNIGHT.
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
--- NOTE | 2025-01-16 16:26 | NUR ---
SHIFT SUMMARY PT LETHARGIC, AROUSABLE TO TACTILE STIMULI - PRESENTS ORIENTED TO SELF. INTERMITTENTLY FOLLOWS SIMPLE FACIAL COMMANDS WITH CONTINUED ENCOURAGEMENT. NO COMMANDS FOLLOWED WITH EXTREMITIES BUT PT DOES MOVE THEM INDEPENDENTLY. LOW GRADE TEMP 100.2 TMAX. ATRIAL FIBRILLATION 80S-100S. O2 SAT >94% ON ROOM AIR. POOR SECRETION CLEARANCE - WEAK, MOIST, NONPRODUCTIVE COUGH. DISCUSSED INCREASE IN TEMP AND WBC WITH DR. VAZQUEZ FOR CONCERN OF RISK FOR ASPIRATION AND INFECTION. DOBHOB INTACT TO LEFT NARE - JEVITY 1.5 HIGH AYLEEN RATE INCREASED FROM 40 TO 50 ML/HR WITH ORDERED GOAL OF 65 ML/HR. PUREWICK INTACT. AGGRESSIVE ORAL CARE PERFORMED. CHG BATH, LINEN/GOWN/BHAKTA/SLING CHANGED, HAIR WASHED. MIDLINE TO LUE, DRESSING CHANGED. SILK SCREENER FROM [facility] CALLED ON BEHALF OF PT'S FOR UPDATED. [facility] [employer] [employer] PROVIDED UPDATE. SHORTLY AFTER, AT BEDSIDE FOR VISITATION. THIS RN ATTEMPTED TO EXPLAIN ADMISSION AND PROGRESS. PT'S BEGAN WRITING THAT SHE "COULD NOT BREATE". THROUGH WRITING IN NOTEBOOK, SHE EXPRESSED THAT SHE USES INHALERS BUT THEY WERE NOT AT [facility] BUT AT HER HOUSE WHERE SHE HAS NOT BEEN STAYING. AFTER EXTENDED PERIOD OF TIME WITH HER AT BEDSIDE, SHE WAS ESCORTED TO ER IN WHEELCHAIR. IN ER, SHE REFUSED TO CHECK IN DUE TO LENGTHY WAIT TIME. SHE WAS BROUGHT BACK TO BEDSIDE FOR SHORT VISIT AND IT WAS EXPLAINED TO HER THAT STAFF IS HAPPY TO TALK HER THROUGH SITUATION BUT CANNOT BE DETAINED AND UNABLE TO PROVIDE CARE TO HER OR OTHER PATIENTS. [employer] CALLED TO BEDSIDE.
--- NOTE | 2025-01-16 16:55 | NUR ---
Spiritual care visit conducted. Patient is resting and spouse Magalys is bedside. She is very anxious about his condition and writes that she is afraid because he does everything for her and she does not know how she will live. She she asks for water, which I retrieve for and she writes that she is wants to stay with him, then writes, "I can't breathe, she shows no signs of distress but admits that she wants someone to confirm that he will be ok." I supply anxiety containment, a calming presence and prayer with poor results except that she clearly felt cared for as long as I was sitting with her and letting her write out her struggles.
--- NOTE | 2025-01-16 17:04 | NUR ---
PROVIDER NOTIFICATION - @ 2446 PT'S WRITING THAT SHE WANTS A DETAILED EXPLANATION OF WHAT HAS HAPPENED. NOTIFIED DR. VAZQUEZ VIA PHONE CALL THAT OF REQUEST.
--- NOTE | 2025-01-16 17:48 | NUR ---
VISIT PT'S CONTINUED TO BE INCONSOLABLE, HINDERING CARE BY REQUIRING MULTIPLE STAFF MEMBERS TO PROVIDE EXTENSIVE CARE FOR HER. MARTI TAXI CALLED PER [facility] AND SHE WAS ESCORTED TO VEHICLE VIA WHEELCHAIR. WALKER PLACED IN TRUNK. GRID CASTER STATED THE RIDE WOULD COST $15.50. RN ASSISTED NEGRO WITH PAYING THE GRID CASTER ONE $20 BILL AND TOLD HER IT SHOULD NOT REQUIRE MORE.
[2025-01-17] VITALS (7 sets, daily range): BP systolic 103–133; BP diastolic 67–94
[2025-01-17 04:23] LABS: BASOPHILS ABSOLUTE AUTO 0.04 K/mm3 (0.00-0.23); BASOPHILS PERCENT AUTO 0 % (0-2); EOSINOPHILS ABSOLUTE AUTO 0.01 K/mm3 (0.00-0.68); EOSINOPHILS PERCENT AUTO 0 % (0-6); Hematocrit 34.5 % (37.0-53.0); Hemoglobin 10.5 g/dL (13.5-17.5); IMMATURE GRAN ABSOLUTE AUTO 0.20 K/mm3 (0.00-0.10); IMMATURE GRAN PERCENT AUTO 1 % (0-1); LYMPHOCYTES ABSOLUTE AUTO 0.78 K/mm3 (0.84-5.20); LYMPHOCYTES PERCENT AUTO 5 % (21-46); MONOCYTES ABSOLUTE AUTO 1.30 K/mm3 (0.16-1.47); MONOCYTES PERCENT AUTO 8 % (4-13); Mean Corpuscular HGB Conc 30.4 g/dL (31.5-36.5); Mean Corpuscular Volume 94 fL (80-100); NEUTROPHILS ABSOLUTE AUTO 13.14 K/mm3 (1.96-9.15); NEUTROPHILS PERCENT AUTO 85 % (41-73); NRBC ABSOLUTE 0.00 K/mm3 (0.00-0.02); NRBC Auto 0.0 /100 WBC (0.0-0.2); Platelet Count 286 K/mm3 (150-400); RDW Coefficient Variation 19.9 % (11.7-14.2); RDW Standard Deviation 67.4 fL (35.1-46.3)
[2025-01-17 07:24] LABS: Albumin, Blood 1.8 g/dL (3.4-5.0); Anion Gap 6 mmol/L (3-11); Blood Urea Nitrogen 34 mg/dL (8-24); CO2, Blood 30 mmol/L (21-32); Calcium, Blood 8.8 mg/dL (8.5-10.1); Chloride, Blood 112 mmol/L (98-108); Creatinine, Blood 1.90 mg/dL (0.60-1.20); Glucose, Blood 149 mg/dL (70-99); Magnesium, Blood 2.2 mg/dL (1.6-2.4); Phosphorus, Blood 4.0 mg/dL (2.5-4.9); Potassium, Blood 3.9 mmol/L (3.5-5.5); Sodium, Blood 144 mmol/L (136-145)
[2025-01-17] MEDS ORDERED: Piperacillin/Tazobactam Sod 3.375 GM in NS 100 ML IV SCH (13:30)
--- NOTE | 2025-01-17 18:21 | NUR ---
Patient somnulent throughout shift today. Very weak throughout, although patient still reaching and attempting to pull at lines and tubes, wrist restriants exchanged for less restrictive hand mitts due to weakness. Spoke with MD concerning somnulence, morning seroquel d/c'd, head MRI ordered as well as blood cultures. both blood cultures sent before Zosyn administration. Patient off the floor 15:30 to 16:00 for MRI. Patient did get OOB to chair via ceiling lift this morning. visited this morning, given updates by RN.
[2025-01-17] MEDS ORDERED: Lactobacil 2-S.Thermo-Bifido 1 1 Cap PT SCH (21:00)
[2025-01-18] VITALS (15 sets, daily range): BP systolic 76–105; BP diastolic 53–77
[2025-01-18 03:58] LABS: BASOPHILS ABSOLUTE AUTO 0.04 K/mm3 (0.00-0.23); BASOPHILS PERCENT AUTO 0 % (0-2); EOSINOPHILS ABSOLUTE AUTO 0.00 K/mm3 (0.00-0.68); EOSINOPHILS PERCENT AUTO 0 % (0-6); Hematocrit 32.3 % (37.0-53.0); Hemoglobin 9.8 g/dL (13.5-17.5); IMMATURE GRAN ABSOLUTE AUTO 0.15 K/mm3 (0.00-0.10); IMMATURE GRAN PERCENT AUTO 1 % (0-1); LYMPHOCYTES ABSOLUTE AUTO 0.65 K/mm3 (0.84-5.20); LYMPHOCYTES PERCENT AUTO 3 % (21-46); MONOCYTES ABSOLUTE AUTO 1.42 K/mm3 (0.16-1.47); MONOCYTES PERCENT AUTO 7 % (4-13); Mean Corpuscular HGB Conc 30.3 g/dL (31.5-36.5); Mean Corpuscular Volume 94 fL (80-100); NEUTROPHILS ABSOLUTE AUTO 17.95 K/mm3 (1.96-9.15); NEUTROPHILS PERCENT AUTO 89 % (41-73); NRBC ABSOLUTE 0.00 K/mm3 (0.00-0.02); NRBC Auto 0.0 /100 WBC (0.0-0.2); Platelet Count 346 K/mm3 (150-400); RDW Coefficient Variation 20.0 % (11.7-14.2); RDW Standard Deviation 68.5 fL (35.1-46.3)
[2025-01-18 04:24] LABS: Anion Gap 8.0 mmol/L (3-11); Blood Urea Nitrogen 44.0 mg/dL (8-24); CO2, Blood 29.0 mmol/L (21-32); Calcium, Blood 8.6 mg/dL (8.5-10.1); Chloride, Blood 111.0 mmol/L (98-108); Creatinine, Blood 2.53 mg/dL (0.60-1.20); Glucose, Blood 198.0 mg/dL (70-99); Potassium, Blood 4.3 mmol/L (3.5-5.5); Sodium, Blood 144.0 mmol/L (136-145)
--- NOTE | 2025-01-18 06:19 | NUR ---
END OF SHIFT SUMMARY Pt recived with door way audible secretions in airway. NT suctions done and continued through shift . One episode of o2 sats to mid 60s , NT suction done through both nostrils. Secretions cleared and 02 delivery increased to oxymask at 15L . NG tube pulled forward and reinserted with x ray confirmation. At this time no secretion appericated and 02 93% on 15L oxymask. Physician ANTOINETTE assesed pt 0500 with no new orders recieved. Otherwise VSS at this time.
[2025-01-18 07:00] LABS: pH Blood Arterial 7.50 (7.35-7.45)
--- NOTE | 2025-01-18 08:00 | NUR ---
AM NOTE PT IN BED RESTING AT TIME OF BEDSIDE REPORT. PT WITHDRAWS FROM PAIN, NOT ABLE TO FOLLOW COMMANDS AND RESPONDS INTERMITTENTLY TO VERBAL STIMULI. CARDIAC AFIB IN THE 90'S, EXTREMETIES EDEMATOUS +3 AND GENERALIZED EDEMA NON-PITTING. LUNG SOUNDS DIM W/ RHOCHI. OXYMASK AT 15L FIO2, NASAL TRUMPET IN PLACE RIGHT NARE. BOWEL TONES HYPOACTIVE, NG 65 AT LEFT NARE IN PLACE, TF AT GOAL RATE. MALE PUREWICK IN PLACE DRAINING YELLOW CLEAR URINE. SKIN PALE AND WOUNDS DOCUMENTED IN CHART. CONTACTED TO RETURN TO BEDSIDE TO DISCUSS GOALS OF CARE.
[2025-01-18] MEDS ORDERED: NS 1,000 ML IV SCH (11:15)
[2025-01-18] MEDS ORDERED: Vancomycin HCL 2,500 MG in NS 500 ML IV ONE (11:55)
[2025-01-18] MEDS ORDERED: Vancomycin (Pharmacy Consult) IV SCH (12:00)
--- NOTE | 2025-01-18 12:00 | NUR ---
AFTER DISCUSSION W/ PROVIDER, PALLIATIVE CARE, AND . PT TO BE TRANSITIONED TO COMFORT CARE.
[2025-01-18] MEDS ORDERED: Atropine Sulfate 1% Opth Soln 2ML BTL SL PRN (12:20)
[2025-01-18] MEDS ORDERED: Morphine Sulfate 20 MG/1ML 1 ML Oral Syringe SL PRN (12:20)
[2025-01-18] MEDS ORDERED: Ondansetron HCl 2 MG / ML 2ML Vial IV PRN (12:20)
[2025-01-18] MEDS ORDERED: Morphine Sulfate 10 MG/ML 1MLSYR IV PRN (12:20)
[2025-01-18] MEDS ORDERED: Morphine Sulfate 10 MG/ML 1MLSYR INH PRN (12:20)
[2025-01-18] MEDS ORDERED: Diazepam 5 MG / ML 2ML SYR IV PRN (12:35)
[2025-01-18] MEDS ORDERED: LORazepam Conc 2 MG/ML - 1ML UDC PO PRN (13:20)
[2025-01-18] MEDS ORDERED: LORazepam Conc 2 MG/ML - 1ML UDC PO SCH (14:00)
--- NOTE | 2025-01-18 14:34 | NUR ---
"Spiritual Care | EOL - TOD 1413 Pt. is on comfort care when this gang worker is called to bedside. Facilitated a life review which is complicated as the spouse is mute. A notepad is her means of communication. Prayed for the spouse during the visit and when the Pt. began transitioning. Scripture is read and EOL blessing is given. TOD 1413 with two nurse confirtmation. Comforted the spouse and intitiated EOL education. Spouse has chosen [facility] as home. Spouse verbalized a request that this gang worker communicate with [facility] about the Pts. demise. This gang worker did so. [facility] said that the hospital would need to assist the spouse in getting a taxi, and that the spouse should have money to pay for it, as they had aqssissted her to get some alberto. WIll notify nursing staff."
--- NOTE | 2025-01-18 14:49 | NUR ---
PT TIME OF 1413, VERIFIED BY ARIC Tsang RN
--- NOTE | 2025-01-18 18:28 | NUR ---
"Spiritual Care | Spouse Support Spouse displays eratic behavior, and is brought to the ICU waiting room to meet with this insurance sales producer. While meeting with the insurance sales producer Pt. is officially discharged to [facility] as the Spouse originally requested. Spouse displays evidence of reasonable grief, that is compounded by her physical limitation of lask of voice. Listen to Spouse grieve on her notepad. Pastoral care and a calming presence are given. Spouse had questions about cherry and eternity. Prayed for the Spouse. Left spouse in waiting room so that ICU staff can call a taxi for the Spouse. Spouse acknowledged the need to go back to the [facility]."
== END 2025-01-18 18:00 | DRG 308 ==
LOC: ER 13:54 → ICUE 15:59 → PCU 15:59 → ICUE 01-05 14:25
PROVIDERS: Emergency Medicine; Internal Medicine; Internal Medicine Critical Care Medicine; Student in an Organized Health Care Education/Training Program; ADMIT Family Medicine
PROC: 3E033XZ Introduction of Vasopressor into Peripheral Vein, Percutaneous Approach (ICD-10-PCS; 2025-01-05)
PROC: 0T9B70Z Drainage of Bladder with Drainage Device, Via Natural or Artificial Opening (ICD-10-PCS; 2025-01-05)
PROC: 5A09357 Assistance with Respiratory Ventilation, Less than 24 Consecutive Hours, Continuous Positive Airway Pressure (ICD-10-PCS; principal; 2025-01-08)
PROC: 3E03329 Introduction of Other Anti-infective into Peripheral Vein, Percutaneous Approach (ICD-10-PCS; 2025-01-17)
PROC: 0DH67UZ Insertion of Feeding Device into Stomach, Via Natural or Artificial Opening (ICD-10-PCS; 2025-01-18)
PROC: 3E0G76Z Introduction of Nutritional Substance into Upper GI, Via Natural or Artificial Opening (ICD-10-PCS; 2025-01-18)
PROC: 4A033R1 Measurement of Arterial Saturation, Peripheral, Percutaneous Approach (ICD-10-PCS; 2025-01-18)
DX: I48.0 Paroxysmal atrial fibrillation (principal); A41.9 Sepsis, unspecified organism; J96.01 Acute respiratory failure with hypoxia; I50.23 Acute on chronic systolic (congestive) heart failure; E43 Unspecified severe protein-calorie malnutrition; J69.0 Pneumonitis due to inhalation of food and vomit; J18.9 Pneumonia, unspecified organism; G92.8 Other toxic encephalopathy; I13.0 Hypertensive heart and chronic kidney disease with heart failure and stage 1 through stage 4 chronic kidney disease, or unspecified chronic kidney disease; F10.231 Alcohol dependence with withdrawal delirium; F10.221 Alcohol dependence with intoxication delirium; E87.1 Hypo-osmolality and hyponatremia; J44.1 Chronic obstructive pulmonary disease with (acute) exacerbation; I67.89 Other cerebrovascular disease; E87.0 Hyperosmolality and hypernatremia; N17.9 Acute kidney failure, unspecified; F01.511 Vascular dementia, unspecified severity, with agitation; Z66 Do not resuscitate; Z51.5 Encounter for palliative care; N18.30 Chronic kidney disease, stage 3 unspecified; S00.83XA Contusion of other part of head, initial encounter; D63.1 Anemia in chronic kidney disease; M54.6 Pain in thoracic spine; I95.9 Hypotension, unspecified; E83.42 Hypomagnesemia; Y90.5 Blood alcohol level of 100-119 mg/100 ml; F11.90 Opioid use, unspecified, uncomplicated; F13.90 Sedative, hypnotic, or anxiolytic use, unspecified, uncomplicated; I07.1 Rheumatic tricuspid insufficiency; N40.0 Benign prostatic hyperplasia without lower urinary tract symptoms; H57.04 Mydriasis; R45.6 Violent behavior; I42.0 Dilated cardiomyopathy; I27.20 Pulmonary hypertension, unspecified; T42.4X5A Adverse effect of benzodiazepines, initial encounter; Z78.1 Physical restraint status; Z79.01 Long term (current) use of anticoagulants; Z79.899 Other long term (current) drug therapy; Z91.148 Patient's other noncompliance with medication regimen for other reason; Z68.35 Body mass index [BMI] 35.0-35.9, adult; V40.5XXA Car driver injured in collision with pedestrian or animal in traffic accident, initial encounter
CPT/HCPCS: 31720; 36415; 36600; 51701; 51702; 70450; 70551; 71045; 71260; 72125; 73080; 74177; 80048; 80053; 80069; 80162; 80320; 82140; 82803; 82947; 83605; 83735; 83880; 84100; 84145; 84439; 84443; 84481; 85025; 85027; 87040; 87070; 87077; 87205; 92526; 92610; 93005; 93010; 93971; 94640; 94660; 94664; 94762; 96374-59; 96375-59; 99285-25; A9270; C1751; J0282; J1160; J1171; J1630; J1650; J1938; J2060; J2250; J2270; J2405; J2543; J2919; J3360; J3411; J3475; J3480; J7030; J7050; J7060; J7070; Q9967